=== PATIENT | female | born 1935 | race African-American/Black ===

== ENCOUNTER 2017-06-04 18:07 | Inpatient (IN) | payer MEDICARE ==
[2017-06-04 20:00] LABS: Troponin I 0.052 ng/mL (< 0.028)
[2017-06-04 21:47] VITALS: BMI 33.7
[2017-06-04 23:09] LABS: Troponin I 0.047 ng/mL (< 0.028)
[2017-06-05 02:30] LABS: Troponin I 0.034 ng/mL (< 0.028)
[2017-06-05] MEDS ORDERED: FLU VACC TS2017-18 (>65YR) 0.5 ML SYRINGE IM ONE (09:00)
[2017-06-05] MEDS ORDERED: Calcium Carbonate 500 MG ChewTAB PO PRN (10:29)
[2017-06-05] MEDS ORDERED: Acetaminophen 325 MG TAB PO PRN (10:29)
[2017-06-05] MEDS ORDERED: HYDROcodone/Acetaminophen 5/325 mg Tablet PO PRN (10:29)
[2017-06-05] MEDS ORDERED: Ondansetron HCl/PF 4 MG/2 ML Vial IVP PRN (10:29)
[2017-06-05] MEDS ORDERED: Nitroglycerin 0.4 MG TAB (25 Tab Bottle) SL PRN (10:29)
[2017-06-05] MEDS ORDERED: cefTRIAXone\\ROCEPHIN 1 GM in Sodium Chloride 0.9% 100 ML IVPB SCH (11:15)
[2017-06-05] MEDS ORDERED: Vancomycin HCl 1 GM in Premix Bag 1 BAG IVPB SCH (11:15)
--- NOTE | 2017-06-05 11:48 | HP ---
CHIEF COMPLAINT: Swelling of multiple joints and shortness of breath. HISTORY OF PRESENT ILLNESS: This is an 82-year-old pleasant lady who lives with her son. She came t o the [facility] because of shortness of breath. She has also been complaining of joint pains, especially the worsening joint swelling of the right wrist with some redness and also the left knee w ith some redness and has been limited in her activity because of that. She said that this has been h appening, the joint problem has started about a couple of weeks back, but the shortness of breath wor sened over the last 3 days. The patient denies any chest pain right now. No nausea, vomiting, no di arrhea or dysuria. She has been admitted for further evaluation and treatment of that. PAST MEDICAL HISTORY: History of gout, history of hypothyroidism, hypertension. PAST SURGICAL HISTORY: Significant for no surgical histories. PSYCHIATRIC: A poor historian. Denies any anxiety or depression. SOCIAL HISTORY: Denies alcohol, tobacco or drug use. ALLERGIES: No known drug allergies. MEDICATIONS: Amlodipine 5 mg p.o. daily and hydrochlorothiazide 12.5 p.o. daily. REVIEW OF SYSTEMS: Significant for joint pain, especially in the right wrist and the left knee, naeem es any fever, chills, headache, eye pain, hearing loss. No cough, some shortness of breath, no chest pain, no diarrhea, dysuria, or polyuria. No memory or mood changes. No neck pain. PHYSICAL EXAMINATION: VITAL SIGNS: Blood pressure is 164/72, afebrile, patient's pulse rate is 52, breathing 93% on room a ir, heart rate of 70. GENERAL: The patient is lying in bed in moderate distress because of the pain in joints. HEENT: Atraumatic, normocephalic. Pupils equally round, react to light. Extraocular movements inta ct. Mucous membranes moist. NECK: Supple. No JVD. CHEST: Breath sounds. There are no rales or rhonchi. LUNGS: Ritchie some bibasilar rales. CARDIOVASCULAR: Heart S1, S2 normal, bradycardia. ABDOMEN: Soft, obese. EXTREMITIES: The patient's right wrist is swollen and there is some redness over the right wrist whi ch is extremely tender, affects the range of motions as well. Left knee is tender and swollen, affec ts motion. There is some mild bilateral pedal edema. Distal pulses can be palpated without difficul ty, no cyanosis or clubbing. NEUROLOGIC: Alert, awake, oriented. No cranial deficits. No sensorimotor deficits. SKIN: As described above, the joints are red and tender. Otherwise is warm and dry in the rest bod y. PSYCHIATRIC: Normal mood. LABORATORY DATA: EKG shows bradycardia with rate of 56. Also shows complete left bundle branch bloc k and some wide QRS complex. WBC count is 8.4, hemoglobin is 12, glucose is 99. TSH is 23.11, potas sium is 4, creatinine is 1.04, CK 7, troponin is 0.034. BNP is 480. Chest x-rays shows normal shows some bibasilar congestion. ASSESSMENT AND PLAN: 1. New onset congestive heart failure. We will put the patient on IV diuretics, lisinopril and Core g. Cardiology consult and do the echocardiogram. We will maintain strict I's and O's and educate th e patient about congestive heart failure. 2. Right wrist swelling and tenderness in combination with the left knee, possible differential diag nosis could be septic versus inflammatory arthritis. We will consult Orthopedic, we will follow uric acid levels. We will symptomatically treat pain, will empirically treat with IV antibiotics. We wi ll do blood culture and x-rays. 3. Elevated TSH. The patient's home medications does not reflect any thyroid medications. We will start the patient on levofloxacin at a low dose. 4. Bradycardia with a widened QRS complex with elevated troponin in the face of new onset congestive heart failure. We will consult Cardiology and follow their recommendations. 5. Hypertension. We will continue p.r.n. medications and lisinopril. 6. Obesity with a BMI of 33.7. The patient will be counseled about it. 7. Sequential compression devices for deep venous thrombosis prophylaxis. I will work with consultants further caring for the patient.
[2017-06-05] MEDS: Vancomycin HCl 1 GM in Premix Bag 1 BAG IVPB SCH ×2 (12:00→14:00)
--- NOTE | 2017-06-05 12:15 | RAD ---
LEFT KNEE 3 VIEWS: Date: 06/05/17 HISTORY: Left knee pain. FINDINGS/IMPRESSION: Degenerative changes are present. No fracture, dislocation, or bony destruction is seen. There is sug gestion of a joint effusion. POS: JANET
[2017-06-05 12:25] LABS: Troponin I 0.042 ng/mL (< 0.028)
[2017-06-05 12:43] LABS: Thyroid Stimulating Hormone 39.1086 uIU/mL (0.35-4.94)
[2017-06-05 12:54] LABS: Anion Gap 12 mmol/L (10-20); BUN (Urea Nitrogen) 17 mg/dL (9.8-20.1); Calc. Creatinine Clearance 59 mL/min (70-130); Calcium 9.7 mg/dL (7.8-10.44); Carbon Dioxide 27 mmol/L (23-31); Chloride 103 mmol/L (98-107); Estimated GFR-MDRD 62; Glucose 132 mg/dL (83-110); Potassium 3.7 mmol/L (3.5-5.1); Sodium 138 mmol/L (136-145)
[2017-06-05 13:09] LABS: Free T4 (Free Thyroxine) Less than 0.40 ng/dL (0.70-1.48); T4 Less than 2.0 ug/dL (4.87-11.72)
--- NOTE | 2017-06-05 13:14 | RAD ---
RIGHT WRIST THREE VIEWS: HISTORY: Wrist pain and swelling. FINDINGS: There are severe arthritic changes of the first carpometacarpal joint and the triscaphe joint. The b ones are demineralized. There are no acute bone findings. IMPRESSION: Arthritic changes of the wrist. POS: JANET
[2017-06-05] MEDS: cefTRIAXone\\ROCEPHIN 1 GM, Syringe 0.4 ML in Sterile Water 9.6 ML SLOW IVP SCH (13:20)
[2017-06-05] MEDS: Furosemide 40 MG/4 ML VIAL SLOW IVP SCH (13:21)
[2017-06-05] MEDS: Vancomycin HCl 1.5 GM in Sodium Chloride 0.9% 250 ML 300 ML IVPB SCH (13:57)
--- NOTE | 2017-06-05 14:52 | CON ---
DATE OF CONSULTATION: 06/05/2017 CHIEF COMPLAINT: Right wrist pain and left knee pain. HISTORY OF PRESENT ILLNESS: Ms. Blum is an 82-year-old female who was admitted to the hospital for shortness of breath. Incidentally, she complained of right wrist and left knee pain. This has been sore over the last few weeks. She has an intermittent joint pain, especially with cold weather. She has a history of gout. She thinks that this feels similar to her pain in the past. She is actually improving with her wrist now. Her knee has been sore with ambulation. She has had no fevers or chi lls. PAST MEDICAL HISTORY: Gout, hypothyroidism, hypertension. PAST SURGICAL HISTORY: Negative. PSYCHIATRIC HISTORY: Negative. SOCIAL HISTORY: The patient denies alcohol, tobacco or drug use. ALLERGIES: No known drug allergies. MEDICATIONS: Amlodipine and hydrochlorothiazide. REVIEW OF SYSTEMS: Positive for right wrist and left knee pain, otherwise negative for 10 point revi ew of systems. RADIOLOGICAL STUDIES: X-rays of the right wrist review osteoarthritis especially of the base of the thumb. No significant joint effusion or other acute findings. The patient's left knee has advanced osteoarthritis of the medial compartment, no acute findings. PHYSICAL EXAMINATION: VITAL SIGNS: Temperature 98.8, respiratory 16, pulse 62, blood pressure 195/76. GENERAL: She is alert, sitting upright, talkative, no apparent distress. She is on nasal cannula ox ygen. HEENT: Normocephalic, atraumatic. ABDOMEN: Soft, nontender, nondistended. MUSCULOSKELETAL: The patient's right wrist has a small effusion. She has tenderness with range of m otion especially in extension. There is no erythema or warmth. She can make a full composite fist. The left knee has a positive large knee effusion with pain in flexion. She can flex to 45 degrees. Ligamentously, stable knee. Tender along the joint line. 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 PLAN: At this point, I think the patient's symptoms are consistent with her gout flare and arthritis . She does have an elevated uric acid and could be treated with appropriate medications for medical management of gout. She could be put on anti-inflammatory medication for pain relief. Wrist brace a s needed. No activity restriction. Orthopedics will sign off. She can follow up as needed in the [facility] as an outpatient.
[2017-06-05] MEDS: Levothyroxine Sodium 100 MCG TAB PO SCH (15:00)
--- NOTE | 2017-06-05 17:36 | CON ---
DATE OF CONSULTATION: 06/05/2017 HISTORY OF PRESENT ILLNESS: The patient is a pleasant 82-year-old woman who was admitted with weakness and was noted to have a very slow heart rate. The patient has no known cardiac history. She denies having any history of lightheadedness or syncope. The patient reports that she has felt progressively weak and has had difficulty with walking. The patient denied having any chest pain. She reports dyspnea on exertion. PAST MEDICAL HISTORY: 1. Hypothyroidism. 2. Gout. 3. Hypertension. PAST SURGICAL HISTORY: None. SOCIAL HISTORY: Nonsmoker. ALLERGIES: No known drug allergies. MEDICATIONS ON ADMISSION: Amlodipine 5 daily,and hydrochlorothiazide 12.5 daily. REVIEW OF SYSTEMS: Ten point system noticeable for weakness and dyspnea. No history of bright red blood per rectum, hematuria. PHYSICAL EXAMINATION: GENERAL: Obese woman in no acute distress with a blood pressure of 164/72, heart rate was 50. NECK: Showed no jugular venous distention. LUNGS: Clear to auscultation. HEART: Regular rate and rhythm, normal S1, S2. ABDOMEN: Distended. EXTREMITIES: Mild edema. SKIN: Warm and dry. NEUROLOGIC: Nonfocal. VASCULAR: Radial pulses are 2+. LABORATORY DATA: Sodium 138, potassium 3.7, chloride 103, bicarbonate 27, BUN 17, creatinine 1.03. Her TSH was 39, free T3 was less than 1. Her EKG revealed normal sinus rhythm with prolonged first degree AV block, left bundle branch block. IMPRESSION: 1. 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 2. Severe hypothyroidism. 3. Hypertension. 4. Obesity. This patient has severe hypothyroidism. She also has prolonged conduction disease. From a cardiac standpoint, she needs to have her thyroid replaced quickly. We will monitor to see if she continues to be in heart block as her thyroid level is corrected. We will also check the patient's echocardiogram and follow this patient with you throughout her hospitalization. BRETT
[2017-06-05] MEDS: Enoxaparin Sodium 40 MG/0.4 ML SYRINGE SC SCH (20:55)
[2017-06-05] MEDS ORDERED: Carvedilol 3.125 MG TAB PO SCH (21:00)
[2017-06-06 03:42] LABS: Bilirubin Negative (Negative); Blood, Urine Negative (Negative); Clarity CLOUDY (Clear); Glucose, Urine (Dipstick) Negative (Negative); Leukocyte Negative (Negative); Nitrite Negative (Negative); Protein, Urine (Dipstick) Negative (Neg-Trace); Specific Gravity, Urine 1.022 (1.002-1.036)
[2017-06-06 03:44] LABS: Bacteria/HPF None Seen HPF (None Seen); Hyaline Casts/LPF 0-3 HYALINE CAST LPF (0-3 Hyaline); Pathc Cast-AUWi Flag 0.81 (0-2.49); RBC/HPF 0-3 HPF (0-3)
[2017-06-06 05:01] LABS: #Eosinphils 0.2 thou/uL (0.0-0.7); #Lymphocytes 1.9 thou/uL (1.20-3.40); #Monocytes 0.7 thou/uL (0.11-0.59); #Neutrophils 4.5 thou/uL (1.40-6.50); %Basophils 0.4 % (0.0-1.0); %Eosinophils 2.1 % (0.0-10.0); %Lymphocytes 25.9 % (21.0-51.0); %Monocytes 9.7 % (0.0-10.0); Hemoglobin 12.3 g/dL (12.0-16.0); Mean Corpuscular Hemoglobin 33.6 pg (27.0-31.0); Mean Platelet Volume 8.8 fL (7.4-10.4); Platelet Count 168 thou/uL (130-400); RBC Distribution Width 14.3 % (11.5-14.5); Red Blood Cell (RBC) Count 3.65 mill/uL (4.20-5.40); White Blood Cell (WBC) Count 7.2 thou/uL (4.8-10.8)
[2017-06-06 05:21] LABS: ALT (SGPT) 31 U/L (8-55); AST (SGOT) 43 U/L (5-34); Albumin 3.4 g/dL (3.4-4.8); Alkaline Phosphatase 55 U/L (40-150); Anion Gap 13 mmol/L (10-20); BUN (Urea Nitrogen) 19 mg/dL (9.8-20.1); BUN/Creatinine Ratio 18.81; Bilirubin, Direct 0.2 mg/dL (0.1-0.3); Bilirubin, Total 0.4 mg/dL (0.2-1.2); Calc. Creatinine Clearance 60 mL/min (70-130); Calcium 8.9 mg/dL (7.8-10.44); Carbon Dioxide 28 mmol/L (23-31); Chloride 102 mmol/L (98-107); Estimated GFR-MDRD 63; Glucose 110 mg/dL (83-110); Phosphorus 3.2 mg/dL (2.3-4.7); Potassium 3.6 mmol/L (3.5-5.1); Protein, Total 6.8 g/dL (6.0-8.3); Sodium 139 mmol/L (136-145)
[2017-06-06] MEDS ORDERED: Levothyroxine Sodium 100 MCG TAB PO SCH (06:00)
[2017-06-06] MEDS ORDERED: Levothyroxine Sodium 25 MCG TAB PO SCH (06:00)
[2017-06-06] MEDS: Levothyroxine Sodium 100 MCG TAB PO SCH (06:28)
[2017-06-06] MEDS: Furosemide 40 MG/4 ML VIAL SLOW IVP SCH (06:28)
[2017-06-06] MEDS: Lisinopril 2.5 MG TAB PO SCH (08:59)
[2017-06-06] MEDS: Polyethylene Glycol 3350 17 GM Packet PO SCH (08:59)
--- NOTE | 2017-06-06 13:03 | PDOC.PN ---
- Subjective Encounter Start Date: 06/06/17 Encounter Start Time: 13:01 sob better no n/v no f/c c/o lt knee pain rt wrist better - Objective MAR Reviewed: Yes Vital Signs & Weight: Vital Signs (12 hours) Temp Pulse Resp BP BP Pulse Ox 06/06/17 11:30 98.7 F 58 L 18 153/69 H 94 L 06/06/17 08:59 59 L 145/64 H 06/06/17 07:40 98.6 F 59 L 18 145/64 H 97 06/06/17 07:25 98.6 F 59 L 18 97 06/06/17 04:00 97.9 F 50 L 13 100/64 96 Weight Admit Weight 202 lb 8 oz Weight 202 lb 6.4 oz I&O: 06/05/17 06/06/17 06/07/17 06:59 06:59 06:59 Intake Total 280 1160 Balance 280 1160 Result Diagrams: 06/06/17 04:45 06/06/17 04:45 Additional Labs: Accuchecks 06/06/17 06/05/17 06/05/17 06:01 20:35 16:35 POC Glucose 104 126 H 104 06/05/17 11:51 POC Glucose 120 H Phys Exam - Physical Examination Constitutional: NAD HEENT: PERRLA Neck: no JVD Respiratory: no wheezing biabasilar rales Cardiovascular: no significant murmur Gastrointestinal: non-tender Musculoskeletal: pulses present lt knee swelling Neurological: moves all 4 limbs Psychiatric: A&O x 3 Dx/Plan (1) CHF exacerbation Code(s): I50.9 - HEART FAILURE, UNSPECIFIED Status: Acute (2) Gout attack Code(s): M10.9 - GOUT, UNSPECIFIED Status: Acute (3) Osteoarthritis Code(s): M19.90 - UNSPECIFIED OSTEOARTHRITIS, UNSPECIFIED SITE Status: Acute (4) Obesity Code(s): E66.9 - OBESITY, UNSPECIFIED Status: Acute (5) Hypothyroid Code(s): E03.9 - HYPOTHYROIDISM, UNSPECIFIED Status: Acute (6) Mobitz II Code(s): I44.1 - ATRIOVENTRICULAR BLOCK, SECOND DEGREE Status: Acute (7) HTN (hypertension) Code(s): I10 - ESSENTIAL (PRIMARY) HYPERTENSION Status: Acute - Plan * monitor pulse * f/u card plan * ortho input appreciated * cont thyroid replacement
[2017-06-06] MEDS: cefTRIAXone\\ROCEPHIN 1 GM, Syringe 0.4 ML in Sterile Water 9.6 ML SLOW IVP SCH (13:12)
[2017-06-06] MEDS: Vancomycin HCl 1.5 GM in Sodium Chloride 0.9% 250 ML 300 ML IVPB SCH (13:12)
[2017-06-06] MEDS: Enoxaparin Sodium 40 MG/0.4 ML SYRINGE SC SCH (21:59)
[2017-06-07] MEDS: Levothyroxine Sodium 100 MCG TAB PO SCH (06:02)
[2017-06-07 06:25] LABS: Albumin 3.4 g/dL (3.4-4.8); Anion Gap 13 mmol/L (10-20); BUN (Urea Nitrogen) 22 mg/dL (9.8-20.1); BUN/Creatinine Ratio 19.64; Calc. Creatinine Clearance 54 mL/min (70-130); Calcium 8.9 mg/dL (7.8-10.44); Carbon Dioxide 28 mmol/L (23-31); Chloride 100 mmol/L (98-107); Estimated GFR-MDRD 56; Glucose 108 mg/dL (83-110); Phosphorus 3.8 mg/dL (2.3-4.7); Potassium 3.6 mmol/L (3.5-5.1); Sodium 137 mmol/L (136-145)
[2017-06-07] MEDS: Polyethylene Glycol 3350 17 GM Packet PO SCH (09:14)
[2017-06-07] MEDS: Lisinopril 2.5 MG TAB PO SCH (09:14)
[2017-06-07 12:34] LABS: Vancomycin, Trough 15.8 ug/mL
[2017-06-07] MEDS: Vancomycin HCl 1.5 GM in Sodium Chloride 0.9% 250 ML 300 ML IVPB SCH (13:59)
[2017-06-07] MEDS: cefTRIAXone\\ROCEPHIN 1 GM, Syringe 0.4 ML in Sterile Water 9.6 ML SLOW IVP SCH (13:59)
--- NOTE | 2017-06-07 16:29 | PDOC.PN ---
- Subjective Encounter Start Date: 06/07/17 Encounter Start Time: 16:28 Patient seen and examined. No new complaints. No overnight events - Objective MAR Reviewed: Yes Vital Signs & Weight: Vital Signs (12 hours) Temp Pulse Resp BP BP Pulse Ox 06/07/17 11:15 97.7 F 52 L 18 171/59 H 94 L 06/07/17 09:14 49 L 165/54 H 06/07/17 08:00 98.2 F 49 L 18 94 L 06/07/17 07:30 98.2 F 49 L 18 165/54 H 94 L Weight Admit Weight 202 lb 8 oz Weight 203 lb I&O: 06/06/17 06/07/17 06/08/17 06:59 06:59 06:59 Intake Total 1160 930 Balance 1160 930 Result Diagrams: 06/06/17 04:45 06/07/17 05:11 Additional Labs: Accuchecks 06/07/17 06/06/17 06/06/17 06:04 20:25 11:30 POC Glucose 107 131 H 124 H Phys Exam - Physical Examination Constitutional: NAD HEENT: PERRLA Neck: no JVD Respiratory: no wheezing Cardiovascular: no significant murmur Gastrointestinal: non-tender Musculoskeletal: pulses present Neurological: moves all 4 limbs Psychiatric: A&O x 3 Dx/Plan (1) CHF exacerbation Code(s): I50.9 - HEART FAILURE, UNSPECIFIED Status: Acute (2) Gout attack Code(s): M10.9 - GOUT, UNSPECIFIED Status: Acute (3) Osteoarthritis Code(s): M19.90 - UNSPECIFIED OSTEOARTHRITIS, UNSPECIFIED SITE Status: Acute (4) Obesity Code(s): E66.9 - OBESITY, UNSPECIFIED Status: Acute (5) Hypothyroid Code(s): E03.9 - HYPOTHYROIDISM, UNSPECIFIED Status: Acute (6) Mobitz II Code(s): I44.1 - ATRIOVENTRICULAR BLOCK, SECOND DEGREE Status: Acute (7) HTN (hypertension) Code(s): I10 - ESSENTIAL (PRIMARY) HYPERTENSION Status: Acute - Plan * pt/ot * f/u card plan
[2017-06-07] MEDS: Enoxaparin Sodium 40 MG/0.4 ML SYRINGE SC SCH (20:35)
[2017-06-08] MEDS: Levothyroxine Sodium 100 MCG TAB PO SCH (06:15)
[2017-06-08] MEDS: Polyethylene Glycol 3350 17 GM Packet PO SCH (08:31)
[2017-06-08] MEDS: Lisinopril 2.5 MG TAB PO SCH (08:33)
--- NOTE | 2017-06-08 13:24 | PDOC.PN ---
- Subjective Encounter Start Date: 06/08/17 Encounter Start Time: 13:24 Patient seen and examined. No new complaints. No overnight events - Objective MAR Reviewed: Yes Vital Signs & Weight: Vital Signs (12 hours) Temp Pulse Resp BP BP Pulse Ox 06/08/17 08:33 52 L 149/74 H 06/08/17 07:28 98.2 F 52 L 16 149/74 H 93 L 06/08/17 04:00 98.3 F 55 L 16 138/67 92 L Weight Admit Weight 202 lb 8 oz Weight 205 lb I&O: 06/07/17 06/08/17 06/09/17 06:59 06:59 06:59 Intake Total 930 770 Balance 930 770 Result Diagrams: 06/06/17 04:45 06/07/17 05:11 Phys Exam - Physical Examination Constitutional: NAD HEENT: moist MMs Neck: no JVD Respiratory: no rales Cardiovascular: no significant murmur Gastrointestinal: non-tender Musculoskeletal: pulses present Neurological: moves all 4 limbs Psychiatric: A&O x 3 Dx/Plan (1) CHF exacerbation Code(s): I50.9 - HEART FAILURE, UNSPECIFIED Status: Acute (2) Gout attack Code(s): M10.9 - GOUT, UNSPECIFIED Status: Acute (3) Osteoarthritis Code(s): M19.90 - UNSPECIFIED OSTEOARTHRITIS, UNSPECIFIED SITE Status: Acute (4) Obesity Code(s): E66.9 - OBESITY, UNSPECIFIED Status: Acute (5) Hypothyroid Code(s): E03.9 - HYPOTHYROIDISM, UNSPECIFIED Status: Acute (6) Mobitz II Code(s): I44.1 - ATRIOVENTRICULAR BLOCK, SECOND DEGREE Status: Acute (7) HTN (hypertension) Code(s): I10 - ESSENTIAL (PRIMARY) HYPERTENSION Status: Acute - Plan * doing better * pt/ot * f/u card plan
[2017-06-08] MEDS: cefTRIAXone\\ROCEPHIN 1 GM, Syringe 0.4 ML in Sterile Water 9.6 ML SLOW IVP SCH (13:29)
[2017-06-08] MEDS ORDERED: Acetaminophen 325 MG TAB PO PRN (15:10)
[2017-06-08] MEDS: hydrALAZINE 20 MG/ML VIAL SLOW IVP PRN (16:20)
[2017-06-08] MEDS: Docusate 100 MG CAP PO SCH (20:11)
[2017-06-08] MEDS: Enoxaparin Sodium 40 MG/0.4 ML SYRINGE SC SCH (20:11)
[2017-06-09] MEDS: Levothyroxine Sodium 100 MCG TAB PO SCH (05:48)
[2017-06-09 06:00] LABS: Albumin 3.3 g/dL (3.4-4.8); Anion Gap 13 mmol/L (10-20); BUN (Urea Nitrogen) 17 mg/dL (9.8-20.1); BUN/Creatinine Ratio 17.17; Calc. Creatinine Clearance 62 mL/min (70-130); Calcium 9.4 mg/dL (7.8-10.44); Carbon Dioxide 30 mmol/L (23-31); Chloride 98 mmol/L (98-107); Estimated GFR-MDRD 65; Glucose 100 mg/dL (83-110); Phosphorus 3.8 mg/dL (2.3-4.7); Potassium 3.6 mmol/L (3.5-5.1); Sodium 137 mmol/L (136-145)
--- NOTE | 2017-06-09 08:06 | PDOC.PN ---
- Subjective Encounter Start Date: 06/09/17 Encounter Start Time: 09:30 Subjective: Patient with improved pain in left knee. No SOB currently. Just back -: from ECHO. - Objective MAR Reviewed: Yes Vital Signs & Weight: Vital Signs (12 hours) Temp Pulse Resp BP Pulse Ox 06/09/17 04:00 98.7 F 53 L 20 159/72 H 94 L 06/08/17 23:00 99.1 F 56 L 20 141/67 H 93 L Weight Admit Weight 202 lb 8 oz Weight 214 lb 1.6 oz I&O: 06/08/17 06/09/17 06/10/17 06:59 06:59 06:59 Intake Total 770 794 Balance 770 794 Result Diagrams: 06/06/17 04:45 06/09/17 05:11 EKG Reviewed by me: Yes (Sinus Mc, 1st degree block (? cont 2nd degree?)) Phys Exam - Physical Examination Constitutional: NAD HEENT: moist MMs Respiratory: no wheezing, no rales, no rhonchi, clear to auscultation bilateral Cardiovascular: no significant murmur mild bradycardia Gastrointestinal: soft, positive bowel sounds left knee with effusion, not warm or red Neurological: non-focal, moves all 4 limbs Psychiatric: normal affect, A&O x 3 Dx/Plan (1) CHF exacerbation Code(s): I50.9 - HEART FAILURE, UNSPECIFIED Status: Acute (2) Hypothyroid Code(s): E03.9 - HYPOTHYROIDISM, UNSPECIFIED Status: Acute (3) Mobitz II Code(s): I44.1 - ATRIOVENTRICULAR BLOCK, SECOND DEGREE Status: Acute (4) Gout attack Code(s): M10.9 - GOUT, UNSPECIFIED Status: Acute (5) HTN (hypertension) Code(s): I10 - ESSENTIAL (PRIMARY) HYPERTENSION Status: Acute (6) Obesity Code(s): E66.9 - OBESITY, UNSPECIFIED Status: Acute (7) Osteoarthritis Code(s): M19.90 - UNSPECIFIED OSTEOARTHRITIS, UNSPECIFIED SITE Status: Acute - Plan cont current plan of care, PT/OT, DVT proph w/lovenox, DVT proph w/SCDs Rehab screening -: Cardiology plan -: Continued thyroid replacement * . - Discharge Day Encounter end time: 10:00
--- NOTE | 2017-06-09 09:02 | RAD ---
CHEST PA AND LATERAL: History: 82-year-old female with cough. Comparison: 06-04-17 FINDINGS: Monitor leads overlie the chest. Heart size is within normal limits. Atherosclerosis of the aorta. Mi ld stable increased linear and interstitial markings. IMPRESSION: Stable chest. No evidence of pneumonia or other acute process. POS: JANET
[2017-06-09] MEDS: Polyethylene Glycol 3350 17 GM Packet PO SCH (09:38)
[2017-06-09] MEDS: Lisinopril 2.5 MG TAB PO SCH (09:39)
[2017-06-09] MEDS: Docusate 100 MG CAP PO SCH ×2 (09:39→21:36)
[2017-06-09] MEDS: Furosemide 40 MG TAB PO SCH (09:39)
[2017-06-09] MEDS: cefTRIAXone\\ROCEPHIN 1 GM, Syringe 0.4 ML in Sterile Water 9.6 ML SLOW IVP SCH (13:07)
[2017-06-09 15:14] LABS: Anti-Striation AB Negative (Neg:<1:40); Antinuclear AB Negative (Negative); Antiparietal Cell Ab 7.8 Units (0.0-20.0); Complement C4 28 mg/dL (14-44); DSDNA AutoAb 5 IU/mL (0-9); SCL-70 IgG AutoAb <0.2 AI (0.0-0.9); Smith IgG AutoAb <0.2 AI (0.0-0.9); Smooth Muscle AB 12 Units (0-19); Thyroid Peroxidase Abs 12 IU/mL (0-34); U1 RNP/SNRNP IgG AutoAb 0.5 AI (0.0-0.9)
[2017-06-09] MEDS: hydrALAZINE 20 MG/ML VIAL SLOW IVP PRN (17:08)
[2017-06-09] MEDS: Enoxaparin Sodium 40 MG/0.4 ML SYRINGE SC SCH (21:35)
[2017-06-09] MEDS: Lisinopril 5 MG TAB PO SCH (21:36)
[2017-06-10] MEDS: Levothyroxine Sodium 100 MCG TAB PO SCH (05:36)
--- NOTE | 2017-06-10 07:31 | PDOC.PN ---
- Subjective Encounter Start Date: 06/10/17 Encounter Start Time: 07:45 Subjective: Some right ankle pain/soreness. Left knee improved. No CP/SOB. - Objective MAR Reviewed: Yes Vital Signs & Weight: Vital Signs (12 hours) Temp Pulse Resp BP BP Pulse Ox 06/10/17 07:22 99.1 F 57 L 20 182/88 H 94 L 06/10/17 04:00 97.9 F 91 17 134/63 94 L 06/10/17 00:00 97.9 F 62 18 130/60 94 L 06/09/17 21:36 81 149/63 H 06/09/17 19:45 97.9 F 62 18 06/09/17 19:40 97.9 F 62 20 149/63 H Weight Admit Weight 202 lb 8 oz Weight 207 lb 4.8 oz I&O: 06/09/17 06/10/17 06/11/17 06:59 06:59 06:59 Intake Total 794 Balance 794 Result Diagrams: 06/06/17 04:45 06/09/17 05:11 EKG Reviewed by me: Yes (Bradycardia with 1 degree AV block) Phys Exam - Physical Examination Constitutional: NAD HEENT: moist MMs Respiratory: no wheezing, no rales, no rhonchi Cardiovascular: RRR, no significant murmur Gastrointestinal: soft, positive bowel sounds left knee with effusion, no warmth or redness, right ankle exam normal Psychiatric: normal affect, A&O x 3 Dx/Plan (1) CHF exacerbation Code(s): I50.9 - HEART FAILURE, UNSPECIFIED Status: Acute (2) Hypothyroid Code(s): E03.9 - HYPOTHYROIDISM, UNSPECIFIED Status: Acute (3) Mobitz II Code(s): I44.1 - ATRIOVENTRICULAR BLOCK, SECOND DEGREE Status: Acute (4) Gout attack Code(s): M10.9 - GOUT, UNSPECIFIED Status: Acute (5) HTN (hypertension) Code(s): I10 - ESSENTIAL (PRIMARY) HYPERTENSION Status: Acute (6) Obesity Code(s): E66.9 - OBESITY, UNSPECIFIED Status: Acute (7) Osteoarthritis Code(s): M19.90 - UNSPECIFIED OSTEOARTHRITIS, UNSPECIFIED SITE Status: Acute - Plan cont current plan of care, PT/OT, DVT proph w/lovenox, DVT proph w/SCDs Arranging SNF bed in [place]. -: D/C when ok with cardiology. -: Will need repeat fT4 in 3 weeks to make sure not supratherapeutic, then TSH -: in 6 weeks once steady state achieved. * . - Discharge Day Encounter end time: 08:15
[2017-06-10] MEDS: Furosemide 40 MG TAB PO SCH (08:55)
[2017-06-10] MEDS: Docusate 100 MG CAP PO SCH (08:55)
[2017-06-10] MEDS: Lisinopril 5 MG TAB PO SCH (08:55)
[2017-06-10] MEDS: Polyethylene Glycol 3350 17 GM Packet PO SCH (09:00)
--- NOTE | 2017-06-10 12:34 | EKG ---
Test Reason : Blood Pressure : / mmHG Vent. Rate : 056 BPM Atrial Rate : 056 BPM P-R Int : 000 ms QRS Dur : 150 ms QT Int : 530 ms P-R-T Axes : 000 -18 180 degrees QTc Int : 511 ms Regular wide complex without defined P waves Left bundle branch block Abnormal ECG When compared with ECG of 04-JUN-2017 19:52, (Unconfirmed) Sinus rhythm has replaced Wide QRS rhythm Confirmed by DR. Ludy CABRERA ([id number]) on 06/10/2017 12:34:06 PM Referred By: ZAHRA Confirmed By:DR. Ludy CABRERA
--- NOTE | 2017-06-10 12:40 | EKG ---
Test Reason : Blood Pressure : / mmHG Vent. Rate : 057 BPM Atrial Rate : 500 BPM P-R Int : 000 ms QRS Dur : 162 ms QT Int : 506 ms P-R-T Axes : 000 -03 200 degrees QTc Int : 492 ms Probable nsr with first degree AV block Left bundle branch block Abnormal ECG When compared with ECG of 10-JUN-2017 06:50, (Unconfirmed) Atrial fibrillation has replaced Sinus rhythm Confirmed by DR. Ludy CABRERA ([id number]) on 06/10/2017 12:40:07 PM Referred By: MARCIANO Confirmed By:DR. Ludy CABRERA
[2017-06-10 19:29] VITALS: BP 165/64; TEMP 97.6
--- NOTE | 2017-06-11 04:07 | DIS ---
PRIMARY CARE PHYSICIAN: Dr. Catherine. DIAGNOSES ON ADMISSION: 1. New onset congestive heart failure. 2. Right wrist swelling and left knee swelling and pain. 3. Elevated TSH. 4. Bradycardia with a widened QRS. 5. Hypertension. 6. Obesity. DIAGNOSES ON DISCHARGE: 1. Acute new onset congestive heart failure, likely systolic. 2. Severe hypothyroidism. 3. Mobitz type 2 heart block, now resolved to a first-degree heart block. 4. Acute gout. 5. Hypertension. 6. Obesity. 7. Osteoarthritis. PROCEDURES: 1. X-ray of the left knee showing degenerative changes and a possible joint effusion. 2. X-ray of the right wrist showing arthritic changes. 3. Echocardiogram with suboptimal images secondary to patient's body habitus, that was unable to be certain of the ejection fraction though likely depressed. CONSULTATIONS: 1. Cardiology, Dr. Collins and Dr. Millan. 2. Orthopedics, Dr. Luna. PERTINENT LABORATORY DATA: TSH of 39. Free T4 less than 0.4. Free T3 less than 1. Uric acid eleva joe at 8. Brain natriuretic peptide elevated at 282. SUMMARY OF HOSPITAL COURSE: This is an 82-year-old -[place] female brought in to the [facility] Emergency Room due to shortness of breath, also complaining of joint pains with worsening joint swelling and pain in the right wrist and the left knee. The patient was noted to have an elevated b rain natriuretic peptide at 480 and sinus bradycardia with a complete left bundle branch block and so me widened QRS. She was transferred to [facility] and admitted. Dr. Collins was consult ed produce production team member for Dr. Millan.Dr. Collins diagnosed her with a second degree AV block with an intermit tent Mobitz type 2. The patient was recommended that she have a thyroid replacement. The patient wa s started on levothyroxine 100 mcg daily and she was watched on telemetry monitoring. She was also d iuresed with a resolution of her shortness of breath. She had an echocardiogram as above. The patie nt had x-rays also of the swollen painful joints and Dr. Luna was consulted and he diagnosed her with underlying osteoarthritis with an overlying gouty flare, recommend treatment with antiinflammat ories. Patient improved over the course of hospitalization with a markedly decreased pain. She cont inued to have significant bradycardia during the hospitalization; however was asymptomatic and eventu ally the patient was cleared by Dr. Millan for discharge and she is being discharged to a swing bed at [place]. DISCHARGE MANAGEMENT: Discharged to [place] for swing bed. Follow up with Dr. Catherine in 1 week . The patient will need a repeat free T4 in 3 weeks to make certain that she is not being overcorrec joe and a repeat TSH in 6 weeks once it is stabilized to see if she will need an increase or decrease dose of levothyroxine. ACTIVITIES: As tolerated. DIET: Healthy heart, low sodium diet. She will need physical and occupational therapy. DISCHARGE MEDICATIONS: 1. MiraLax 17 grams daily. 2. Nitroglycerin as needed for chest pain. 3. Lisinopril 5 mg twice a day. 4. Levothyroxine 100 mcg daily. 5. Henry as needed. 6. Lasix 40 mg daily. 7. Colace 100 mg twice a day. 8. Tums 1000 mg every 4 hours as needed. 9. Aspirin 81 mg daily. 10. Tylenol as needed.
--- NOTE | 2017-06-13 10:00 | EKG ---
Test Reason : Blood Pressure : / mmHG Vent. Rate : 056 BPM Atrial Rate : 055 BPM P-R Int : 000 ms QRS Dur : 150 ms QT Int : 508 ms P-R-T Axes : 000 -32 154 degrees QTc Int : 490 ms Wide QRS rhythm Left axis deviation Left bundle branch block Abnormal ECG Confirmed by MANUELA MEDRANO, ILSA Galvez ([id number]), photography editor MEGHANA TRIANA ([id number]) on 06/13/2017 10:00:12 AM Referred By: MD ROY Confirmed By:ILSA ROY MD
== END 2017-06-10 17:53 | disposition swing bed (61) | DRG 643 ==
LOC: ERS 18:07 → OBSVTOIN 19:49 → 2NO 19:49
PROVIDERS: ADMIT Internal Medicine Infectious Disease; ATTEND Internal Medicine Infectious Disease
DX: E03.9 Hypothyroidism, unspecified (principal); I50.21 Acute systolic (congestive) heart failure; I11.0 Hypertensive heart disease with heart failure; I44.7 Left bundle-branch block, unspecified; I44.1 Atrioventricular block, second degree; M10.9 Gout, unspecified; I10 Essential (primary) hypertension; E66.9 Obesity, unspecified; Z68.33 Body mass index [BMI] 33.0-33.9, adult; M19.031 Primary osteoarthritis, right wrist; I44.0 Atrioventricular block, first degree; M17.12 Unilateral primary osteoarthritis, left knee; M25.431 Effusion, right wrist; M25.462 Effusion, left knee
CPT/HCPCS: 36415; 36416; 71020; 80048; 80069; 80076; 80202; 81001; 83520; 83735; 83880; 84436; 84439; 84443; 84481; 84484; 84550; 85025; 85652; 86140; 86160; 86225; 86235; 86376; 86430; 86431; 93005; 93010; 93306; 93798; A4216; G8978-GP-CM; G8979-GP-CL; G8987-GO-CL; G8988-GO-CK; J0360; J0696; J1650; J1940; J3370; J7050

== ENCOUNTER 2019-04-26 15:39 | Inpatient (IN) | payer MEDICARE, MEDICAID ==
--- NOTE | 2019-04-26 16:52 | PDOC.FPRHP ---
- History of Present Illness Chief Complaint: SOB History of Present Illness: Hx difficult to obtain due to hx of dementia. AXOX2 This is an 84yo AA F who presented to the [facility] ER today with a CC of SOB. PMH significant for reported CHF, hypothyroidism, gout, GERD, htn. She states the SOB and difficulty walking brought her to the ER today. She endorses a cough that is productive. She states that she is needing breathing treatments. She is also complaining of difficulty walking. She uses a wheelchair to get around. Endorses fatigue and "no energy." Endorses normal BMs. Denies any blood in stool or urine. Endorses N/V. Denies dysuria. Patient states she has seen a stonework tracer but unable to recall which stonework tracer. Other hx obtained from ER records - patient arrived via EMS from [facility] for fluid overload. Patient is on a 1500 fluid restriction diet but NH has not been able to be compliant with this. Patient had BNP > 4000 and elevated trop at [facility]. Patient lives in a NH. PCP: Warren Paredes MD ED Course: Miguelina, 40 iv lasix - Allergies/Adverse Reactions Allergies Allergy/AdvReac Type Severity Reaction Status Date / Time No Known Drug Allergies Allergy Verified 04/26/19 20:45 - Home Medications Medication Instructions Recorded Confirmed Type Aspirin Chewable [Aspirin Chewable 81 mg PO DAILY tab 06/10/17 04/26/19 Rx Tablet] Docusate [Colace] 100 mg PO BID cap 06/10/17 04/26/19 Rx Levothyroxine Sodium [Synthroid] 100 mcg PO 0600 tab 06/10/17 04/26/19 Rx Allopurinol [Zyloprim] 100 mg PO BID tablet 07/10/17 04/26/19 Rx Ipratropium/Albuterol Sulfate 3 ml NEB BID neb 07/10/17 04/26/19 Rx [DuoNeb] Ipratropium/Albuterol Sulfate 3 ml NEB [id number] PRN neb 07/10/17 04/26/19 Rx [DuoNeb] predniSONE 20 mg PO QAM-WM tab 07/10/17 04/26/19 Rx Acetaminophen [Tylenol Regular 650 mg PO Q6HR PRN MDD 3000MG/24HR 04/26/1904/26 History Strength] Furosemide 1 tab PO BID 04/26/19 04/26/19 History Omeprazole 1 tab PO DAILY 04/26/19 04/26/19 History Ondansetron [Zofran ODT] 1 tab PO Q6HR PRN 04/26/19 04/26/19 History Polyethylene Glycol 3350 [Miralax] 1 pack PO DAILY 04/26/19 04/26/19 History Potassium Chloride 1 tab PO BID 04/26/19 04/26/19 History - History PMHx: dementia, CHF, GERD, Gout, hypothyroidism, HTN PSHx: none FHx: non contributory Social: denies alcohol, drug or tobacco use. Lives in a NH. Rosa Gu ( niece) is MPOA per patient. - Review of Systems General: reports: fever/chills, fatigue. denies: weight/appetite/sleep changes , night sweats Eyes: denies: vision changes ENT: denies: nasal congestion Respiratory: reports: cough, shortness of breath, exercise intolerance. denies : congestion Cardiovascular: reports: edema. denies: chest pain, palpitation, paroxysmal nocturnal dyspnea, orthopnea Gastrointestinal: reports: nausea, vomiting. denies: diarrhea, constipation, abdominal pain Genitourinary: denies: dysuria Skin: denies: rashes, lesions Musculoskeletal: reports: swelling. denies: pain, tenderness, stiffness - Vital signs Pulse: 82, Resp: 28, O2 sat: 98 on 2l nc, Time: 04/26/2019 16:25 Weight 99kg - Physical Exam Constitutional: NAD HEENT: normocephalic and atraumatic, PERRLA, EOMI, MMM -HEENT: hard of hearing Neck: supple, FROM, no JVD Chest: no-tender to palpation, no lesions Heart: RRR, normal S1/S2, no murmurs/rubs/gallops, pulses present -Heart: 1+ edema b/l to level of the knees, 2+ edema in feet b/l Lungs: no respiratory distress, good air movement, no retractions -Lungs: exp wheeze, diffuse crackles Abdomen: soft, non-tender, bowel sounds present, no masses/distention Musculoskeletal: normal structure, normal tone, ROM grossly normal Neurological: no focal deficit -Neurological: strength 1/5 in b/l LE, sensation intact b/l Skin: no rash/lesions, good turgor, capillary refill <2 seconds Heme/Lymphatic: no unusual bruising or bleeding, no purpura, no petechia Psychiatric: normal mood and affect -Psychiatric: poor insight and judgment into medical condition patient knows name, , month; unable to state location, president or place FMR H&P: Results - EKG Interpretation EKG: EKG showing 1st degree AV block, LBBB, QTc 533ms, though p waves difficult to discern; will repeat ekg after diuresis - Radiology Interpretation Chest x-ray Status: report reviewed by me Additional comment: cardiomegaly, suboptimal evaluation of LL base FMR H&P: A/P - Problem List (1) CHF exacerbation Current Visit: No Status: Acute Code(s): I50.9 - HEART FAILURE, UNSPECIFIED (2) HTN (hypertension) Current Visit: No Status: Acute Code(s): I10 - ESSENTIAL (PRIMARY) HYPERTENSION (3) Hypothyroid Current Visit: No Status: Acute Code(s): E03.9 - HYPOTHYROIDISM, UNSPECIFIED (4) Obesity Current Visit: No Status: Acute Code(s): E66.9 - OBESITY, UNSPECIFIED (5) Osteoarthritis Current Visit: No Status: Acute Code(s): M19.90 - UNSPECIFIED OSTEOARTHRITIS , UNSPECIFIED SITE (6) Hx of gout Current Visit: Yes Status: Chronic Code(s): Z87.39 - PERSONAL HISTORY OF DISEASES OF THE MS SYS AND CONN TISS - Plan This is an 84yo AA F presenting today with a CHF exacerbation. #CHF exacerbation -BNP >4000, will follow -CXR: cardiomegaly, suboptimal evaluation left lung base - Received 40IV lasix in [facility] ED, will continue - Strict I&O - echo ordered, will follow; last echo 2017 unable to obtain EF due to body habitus - fluid restriction #Elevated trop -patient denying cp at this time - likely due to CHF exacerbation - initial 0.0195>0.124 - Will continue to trend #UTI -UA: trace LE, 1+ bacteria; per cc from [facility] ED "pus in urine" -patient denies dysuria at this time -urine culture, will follow -rocephin #OA -not complaining of any recent falls or acute pain at this time -continue home meds #GERD -continue home meds #Gout -continue home meds #Hypothyroid -continue home meds #HTN -continue home meds Code: Though A&O x2, patient reports she would like to be full code; Patient's Osiel Sheikh [phone], home [phone], could not be reached this evening. Left message with telemetry phone number to call back. Will try to call again. VTE ppx: lovenox Gi ppx: protonix Dispo: admit to tele obs for fluid diruesis, echo, LOS <48hrs Case discussed with Dr. Caballero FMR H&P: Upper Level - Pertinent history see project internship note - Pertinent findings PE: General: resting, NAD, elderly F, obese, AXOX2 Cardio: RRR, no murmur, rub or gallop Resp: exp wheeze, crackles heard at b/l lung bases Abd: soft, nontender, nondistended MSK: LE very weak 1/5 strength, sensation intact Psych: poor insight and judgement into condition - Plan Date/Time: 04/26/191649 I, Katerine Parra MD, have evaluated this patient and agree with findings/plan as outlined by project internship resident. Pertinent changes/additions are listed here. I was present at the bedside in the ER during the initial evaluation. I helped scribe as above. I agree with the HPI and plan as listed above. Summary: this is an 84yo AA F who presented with CHF exacerbation from [facility]. CXR showing cardiomegaly. Crackles and wheezes heard on PE, significant LE edema. Patient will be diuresed with lasix. Will be given duonebs. UA showing leuks and bacteria - will treat with rocephin. Ucx pending. Will trend troponins - likely elevated due to demand ischemia. Addendum - Attending - Attending Attestation Date/Time: 04/26/192129 I personally evaluated the patient and discussed the management with Dr. Blum/ Fidel I agree with the History, Examination, Assessment and Plan documented above with any addition or exceptions noted below. 84 yo AAF PMH CHF. presents as admit from ER with CC CASTANEDA, SOB, and "pus in urine." She lives at [facility] in [place]. Reported worsening lower extremity swelling. Patient not compliant with fluid restriction. In ER patient, required oxygen. receive lasix, ASA, and duoneb with patient states improved her symptoms. on exam, patient A&O to person only. 2+ edema on legs bilaterally. Crackles in lung base. Labs remarkable for elevated BNP >4000, indeterminent trops that have now down trended. EKG shows prologed HI interval but otherwise unremarkable. CXR concerning for fluid overload. admit for CHF exacerbation. continue IV lasix, strict I&O, fluid restrict, PRN nebs, TTE tomorrow. Patient currently full code by default. Have made multiple attempts to contact [facility] and left VM asking to call to tele floor. Obs, tele, <2 midnights.
[2019-04-26] MEDS ORDERED: Acetaminophen 650 MG Suppository PR PRN (17:07)
[2019-04-26 17:14] LABS: CKMB 1.6 ng/mL (0-6.6)
[2019-04-26] MEDS ORDERED: Furosemide 40 MG/4 ML VIAL SLOW IVP SCH (17:15)
[2019-04-26] MEDS ORDERED: Aspirin Chewable 81 MG TAB ONE (18:21)
[2019-04-26 20:04] LABS: Troponin I 0.111 ng/mL (< 0.028)
[2019-04-26] MEDS ORDERED: Sodium Chloride 0.9% 10 ML ONE (22:28)
[2019-04-26] MEDS: Allopurinol 100 MG TAB PO SCH (22:34)
[2019-04-26] MEDS: Docusate 100 MG CAP PO SCH (22:34)
[2019-04-26] MEDS: cefTRIAXone\\ROCEPHIN 1 GM in Sodium Chloride 0.9% 100 ML IVPB SCH (22:34)
[2019-04-26 23:09] LABS: Troponin I 0.098 ng/mL (< 0.028)
[2019-04-27] MEDS: Levothyroxine Sodium 100 MCG TAB PO SCH (05:51)
[2019-04-27] MEDS: Acetaminophen 325 MG TAB PO PRN (05:55)
[2019-04-27] MEDS ORDERED: Furosemide 20 MG/2 ML VIAL SLOW IVP SCH (06:00)
[2019-04-27 06:44] LABS: #Eosinphils 0.2 thou/uL (0.0-0.7); #Lymphocytes 1.5 thou/uL (1.20-3.40); #Monocytes 0.6 thou/uL (0.11-0.59); %Basophils 0.5 % (0.0-1.0); %Eosinophils 2.5 % (0.0-10.0); %Lymphocytes 20.6 % (21.0-51.0); %Monocytes 8.6 % (0.0-10.0); %Neutrophils 67.7 % (42.0-75.0); Hemoglobin 13.3 g/dL (12.0-16.0); Mean Corpuscular HGB CONC 32.7 g/dL (32.0-36.0); Mean Corpuscular Hemoglobin 33.4 pg (27.0-31.0); Platelet Count 170 thou/uL (130-400); Red Blood Cell (RBC) Count 3.98 mill/uL (4.20-5.40); White Blood Cell (WBC) Count 7.4 thou/uL (4.8-10.8)
[2019-04-27 07:17] LABS: ALT (SGPT) 24 U/L (8-55); AST (SGOT) 35 U/L (5-34); Albumin 3.2 g/dL (3.4-4.8); Alkaline Phosphatase 73 U/L (40-110); Anion Gap 14 mmol/L (10-20); BUN (Urea Nitrogen) 11 mg/dL (9.8-20.1); Bilirubin, Total 0.4 mg/dL (0.2-1.2); Calc. Creatinine Clearance 82 mL/min (70-130); Calcium 9.3 mg/dL (7.8-10.44); Carbon Dioxide 28 mmol/L (23-31); Chloride 101 mmol/L (98-107); Estimated GFR-MDRD 89; Globulin 3.5 g/dL (2.4-3.5); Glucose 114 mg/dL (83-110); Potassium 4.3 mmol/L (3.5-5.1); Protein, Total 6.7 g/dL (6.0-8.3); Sodium 139 mmol/L (136-145)
--- NOTE | 2019-04-27 08:47 | PDOC.FM ---
- Subjective Subjective: Mrs. Blum was resting comfortably in bed and finishing her breakfast at the time of evaluation. She denied any acute overnight events. - Objective Vital Signs & Weight: Vital Signs (12 hours) Temp Pulse Resp BP BP Pulse Ox 04/27/19 08:03 97.5 F L 67 19 143/71 H 100 04/27/19 07:53 97.8 F 67 20 143/71 H 100 04/27/19 03:00 96.7 F L 59 L 16 137/64 100 04/26/19 23:00 97.3 F L 58 L 20 124/58 L 96 Weight Weight 96.932 kg I&O: 04/26/19 04/27/19 04/28/19 06:59 06:59 06:59 Intake Total 320 Output Total 100 Balance 220 Result Diagrams: 04/27/19 06:30 04/27/19 06:30 Phys Exam - Physical Examination Constitutional: NAD HEENT: PERRLA, moist MMs, sclera anicteric, oral pharynx no lesions Neck: no JVD, supple, full ROM Respiratory: no wheezing, no rales, no rhonchi, clear to auscultation bilateral Cardiovascular: RRR, no significant murmur, no rub +2 pulses at Radial Arteries Gastrointestinal: soft, no distention Musculoskeletal: pulses present +2 edema to knees Neurological: non-focal, moves all 4 limbs Psychiatric: normal affect Deviation from normal: A&Ox2 (Person, Time) Skin: no rash Dx/Plan - Plan Plan: 84 y/o female w/ CHF exacerbation, complicated by UTI. #CHF Exacerbation -HPI significant for SOB and signs of fluid overload in setting of known cardiac dysfunction -BNP: 3483 -CXR: Cardiomegaly, sub-optimal evaluation lower left lung -s/p Lasix 40 mg IV in [place] [facility], currently on Lasix 20 mg IV BID -Strict I&Os -Echo: Pending -Fluid Restriction: 1500 ml #Elevated Troponins -Patient denied Chest Pain at admission -Likely 2/2 to CHF Exacerbation -Troponins: 0.124, 0.111, 0.098 -Will continue to evaluate clinically #UTI -UA: Trace LE, 1+ Bacteria; [place] ED reported "pus in urine" -Patient denied dysuria at admission -UCx: Pending -Ceftriaxone 1 gm IV Q24H #OA -No history of recent falls or complaints of pain -Continue home medication regimen #GERD -Continue home medication regimen #Gout -Continue home medication regimen #Hypothyroid -Continue home medication regimen #HTN -BP: 143/71 on 04/27 - currently at goal -Continue home medication regimen Code: Patient desired Full Code at Admission despite being A&Ox2 - Will reengage w/ Patient's MPOA (Rosa Sheikh - /Home: ) Diet: Heart Healthy, Low Sodium - Fluid Restriction per above DVT PPx: Lovenox 40 mg SC Activity: Ambulate w/ Assist Dispo: Patient is currently on Telemetry Floor for observation. Awaiting Echo results and continue fluid diuresis and treatment of UTI, await culture results. Continue to monitor clinically and evaluate for resolution of CHF exacerbation. Expected LOS < 48H Addendum - Attending - Attending Attestation Date/Time: 04/27/19 1394 I personally evaluated the patient and discussed the management with Dr. Palafox. I agree with the History, Examination, Assessment and Plan documented above with any addition or exceptions noted below. Pt with 2+ edema in bilateral lower extremities. Adjusting IV lasix. Strict I/ O. Update family.
[2019-04-27] MEDS: Enoxaparin Sodium 40 MG/0.4 ML SYRINGE SC SCH (09:44)
[2019-04-27] MEDS: predniSONE 20 MG TAB PO SCH (09:45)
[2019-04-27] MEDS: Docusate 100 MG CAP PO SCH ×2 (09:45→22:45)
[2019-04-27] MEDS: Potassium Chloride 10 MEQ TAB PO SCH ×2 (09:45→22:45)
[2019-04-27] MEDS: Aspirin 325 MG TAB PO SCH (09:45)
[2019-04-27] MEDS: Allopurinol 100 MG TAB PO SCH ×2 (09:46→22:45)
[2019-04-27] MEDS: Polyethylene Glycol 3350 17 GM Packet PO SCH (09:47)
[2019-04-27] MEDS: Furosemide 40 MG/4 ML VIAL SLOW IVP SCH (13:38)
[2019-04-27] MEDS: Ondansetron ODT 4 MG TAB PO PRN (17:59)
[2019-04-27] MEDS: cefTRIAXone\\ROCEPHIN 1 GM in Sodium Chloride 0.9% 100 ML IVPB SCH (18:50)
--- NOTE | 2019-04-28 05:33 | PDOC.FM ---
- Subjective Subjective: Mrs. Blum was resting comfortably in her hospital bed at the time of evaluation. She denied any acute overnight events, but stated that she had continued shortness of breath. Per nursing and Telemetry Floor staff, she had no acute overnight events. After repositioning reevaluation, Mrs. Blum felt that she was able to breath much better, and no longer endorsed shortness of breath. - Objective Vital Signs & Weight: Vital Signs (12 hours) Temp Pulse Resp BP Pulse Ox 04/28/19 03:16 97.4 F L 78 16 135/87 97 04/28/19 00:00 71 147/86 H 04/27/19 19:44 98.3 F 78 20 167/82 H 93 L Weight Weight 96.932 kg I&O: 04/26/19 04/27/19 04/28/19 06:59 06:59 06:59 Intake Total 320 850 Output Total 100 950 Balance 220 -100 Result Diagrams: 04/27/19 06:30 04/28/19 08:07 Phys Exam - Physical Examination Constitutional: NAD HEENT: PERRLA, moist MMs, sclera anicteric, oral pharynx no lesions Neck: supple, full ROM Respiratory: no rhonchi, clear to auscultation bilateral Mild wheezing and inspiratory crackles hear in the bibasilar tripathi Cardiovascular: RRR, no significant murmur, no rub Gastrointestinal: soft, non-tender, no distention, positive bowel sounds Musculoskeletal: pulses present +2 pitting edema to the knee, bilaterally Neurological: non-focal Skin: no rash Dx/Plan - Plan Plan: 84 y/o female w/ CHF exacerbation, complicated by UTI. # CHF Exacerbation -HPI significant for SOB and signs of fluid overload in setting of known cardiac dysfunction -BNP: 3483 -CXR: Cardiomegaly, sub-optimal evaluation lower left lung -s/p Lasix 40 mg IV in [place] ED, currently on Lasix 20 mg IV BID -Strict I&Os -Echo: Pending -Lasix 40 mg IV BID -Urine Output: ~950 ml - possibly inaccurate due to collection method (PureWick) -Fluid Restriction: 1500 ml # Elevated Troponins -Patient denied Chest Pain at admission -Likely 2/2 to CHF Exacerbation -Troponins: 0.124, 0.111, 0.098 -Will continue to evaluate clinically # UTI -UA: Trace LE, 1+ Bacteria; [place] ED reported "pus in urine" -Patient denied dysuria at admission -UCx: Pending -Ceftriaxone 1 gm IV Q24H # OA -No history of recent falls or complaints of pain -Continue home medication regimen # GERD -Continue home medication regimen # Gout -Continue home medication regimen # Hypothyroid -Continue home medication regimen # HTN -BP: 135/87 on 04/28 - currently at goal -Continue home medication regimen Code: Patient desired Full Code at Admission despite being A&Ox2 - Will reengage w/ Patient's MPOA (Rosa Sheikh - /Home: ) Diet: Heart Healthy, Low Sodium - Fluid Restriction per above DVT PPx: Lovenox 40 mg SC Activity: Ambulate w/ Assist Dispo: Patient is currently stable on Telemetry Floor for observation. Awaiting Echo results and continue fluid diuresis and treatment of UTI, await culture results. Continue to monitor clinically and evaluate for resolution of CHF exacerbation. Expected LOS < 48H Addendum - Attending - Attending Attestation Date/Time: 04/28/19 1307 I personally evaluated the patient and discussed the management with Dr. Palafox. I agree with the History, Examination, Assessment and Plan documented above with any addition or exceptions noted below. Continue IV lasix, adding metolazone. Monitor I/O's.
[2019-04-28] MEDS: Levothyroxine Sodium 100 MCG TAB PO SCH (06:19)
[2019-04-28] MEDS: Furosemide 40 MG/4 ML VIAL SLOW IVP SCH ×2 (06:19→14:46)
[2019-04-28] MEDS ORDERED: Metolazone 5 MG TAB PO SCH (08:30)
[2019-04-28] MEDS: predniSONE 20 MG TAB PO SCH (09:01)
[2019-04-28] MEDS: Aspirin 325 MG TAB PO SCH (09:01)
[2019-04-28] MEDS: Polyethylene Glycol 3350 17 GM Packet PO SCH (09:01)
[2019-04-28] MEDS: Docusate 100 MG CAP PO SCH ×2 (09:01→20:39)
[2019-04-28] MEDS: Allopurinol 100 MG TAB PO SCH ×2 (09:01→20:39)
[2019-04-28] MEDS: Enoxaparin Sodium 40 MG/0.4 ML SYRINGE SC SCH (09:02)
[2019-04-28] MEDS: Potassium Chloride 10 MEQ TAB PO SCH ×2 (09:02→20:39)
[2019-04-28 09:10] LABS: ALT (SGPT) 18 U/L (8-55); AST (SGOT) 16 U/L (5-34); Albumin 3.5 g/dL (3.4-4.8); Alkaline Phosphatase 72 U/L (40-110); Anion Gap 15 mmol/L (10-20); BUN (Urea Nitrogen) 12 mg/dL (9.8-20.1); Bilirubin, Total 0.4 mg/dL (0.2-1.2); Calc. Creatinine Clearance 85 mL/min (70-130); Calcium 9.3 mg/dL (7.8-10.44); Carbon Dioxide 31 mmol/L (23-31); Chloride 98 mmol/L (98-107); Estimated GFR-MDRD Greater than 90; Globulin 2.8 g/dL (2.4-3.5); Glucose 116 mg/dL (83-110); Potassium 3.7 mmol/L (3.5-5.1); Protein, Total 6.3 g/dL (6.0-8.3); Sodium 140 mmol/L (136-145)
[2019-04-28] MEDS: cefTRIAXone\\ROCEPHIN 1 GM in Sodium Chloride 0.9% 100 ML IVPB SCH (17:34)
[2019-04-28] MEDS: Metolazone 5 MG TAB PO SCH (20:39)
[2019-04-29] MEDS: Acetaminophen 325 MG TAB PO PRN ×2 (02:28→21:23)
[2019-04-29 05:40] LABS: ALT (SGPT) 21 U/L (8-55); AST (SGOT) 24 U/L (5-34); Albumin 3.6 g/dL (3.4-4.8); Alkaline Phosphatase 80 U/L (40-110); Anion Gap 14 mmol/L (10-20); BUN (Urea Nitrogen) 16 mg/dL (9.8-20.1); Bilirubin, Total 0.4 mg/dL (0.2-1.2); Calc. Creatinine Clearance 75 mL/min (70-130); Calcium 9.6 mg/dL (7.8-10.44); Carbon Dioxide 32 mmol/L (23-31); Chloride 95 mmol/L (98-107); Estimated GFR-MDRD 79; Globulin 3.4 g/dL (2.4-3.5); Glucose 111 mg/dL (83-110); Sodium 137 mmol/L (136-145)
[2019-04-29] MEDS: Furosemide 40 MG/4 ML VIAL SLOW IVP SCH ×2 (06:09→14:44)
[2019-04-29] MEDS: Levothyroxine Sodium 100 MCG TAB PO SCH (06:09)
--- NOTE | 2019-04-29 08:32 | PDOC.FM ---
- Subjective Subjective: Mrs. Blum was resting comfortably in her hospital bed at the time of evaluation. She denied any acute overnight events such as chest pain or worsening shortness of breath, and actually stated that she felt that her breathing had improved. - Objective Vital Signs & Weight: Vital Signs (12 hours) Temp Pulse Resp BP Pulse Ox 04/29/19 04:00 97.2 F L 67 23 H 167/77 H 97 04/29/19 01:48 96 Weight Weight 98 kg I&O: 04/28/19 04/29/19 04/30/19 06:59 06:59 06:59 Intake Total 1330 1320 Output Total 1150 1850 Balance 180 -530 Result Diagrams: 04/27/19 06:30 04/29/19 04:44 Phys Exam - Physical Examination Constitutional: NAD HEENT: PERRLA, moist MMs, sclera anicteric, oral pharynx no lesions Neck: supple, full ROM Respiratory: no wheezing, no rales, no rhonchi, clear to auscultation bilateral Breath sounds greatly improved, minimal wheezing / rales Cardiovascular: RRR, no significant murmur, no rub Gastrointestinal: soft, non-tender, no distention, positive bowel sounds Musculoskeletal: pulses present +2 pitting edema bilaterally to the knees, possibly resolving Neurological: non-focal, moves all 4 limbs Psychiatric: normal affect Skin: no rash Dx/Plan - Plan Plan: 84 y/o female w/ CHF exacerbation, complicated by UTI. # CHF Exacerbation -HPI significant for SOB and signs of fluid overload in setting of known cardiac dysfunction -BNP: 3483 -CXR: Cardiomegaly, sub-optimal evaluation lower left lung -s/p Lasix 40 mg IV in [place] ED, currently on Lasix 20 mg IV BID -Strict I&Os -Echo: Pending -Lasix 40 mg IV BID -Urine Output: ~1850 ml - output increasing but daily weights may be inaccurate -Fluid Restriction: 1500 ml # Elevated Troponins -Patient denied Chest Pain at admission -Likely 2/2 to CHF Exacerbation -Troponins: 0.124, 0.111, 0.098 -Will continue to evaluate clinically # UTI -UA: Trace LE, 1+ Bacteria; [place] ED reported "pus in urine" -Patient denied dysuria at admission -UCx: Vancomycin Resistant Enterococcus -Ceftriaxone 1 gm IV Q24H -Confirm coverage with Pharmacy # OA -No history of recent falls or complaints of pain -Continue home medication regimen # GERD -Continue home medication regimen # Gout -Continue home medication regimen # Hypothyroid -Continue home medication regimen # HTN -BP: 167/77 on 04/29 -Continue home medication regimen - consider adjunct therapies if needed Code: Patient desired Full Code at Admission despite being A&Ox2 - Will reengage w/ Patient's MPOA (Rosa Sheikh - /Home: ) Diet: Heart Healthy, Low Sodium - Fluid Restriction per above DVT PPx: Lovenox 40 mg SC Activity: Ambulate w/ Assist Dispo: Patient is currently stable on Telemetry Floor for observation. Awaiting Echo results - will continue fluid diuresis and treatment of UTI, await culture results. Continue to monitor clinically and evaluate for resolution of CHF exacerbation. Expected LOS < 48H Addendum - Attending - Attending Attestation Date/Time: 04/29/19 1110 I personally evaluated the patient and discussed the management with Dr. Palafox. I agree with the History, Examination, Assessment and Plan documented above with any addition or exceptions noted below. Pt is still volume overloaded but I/O is down 200 ml overnight. Will increase lasix, continue metolazone. Urine cx growing vre, initiating antibiotics.
[2019-04-29] MEDS ORDERED: Furosemide 40 MG/4 ML VIAL SLOW IVP SCH (09:00)
[2019-04-29] MEDS: Potassium Chloride 10 MEQ TAB PO SCH ×2 (09:22→21:23)
[2019-04-29] MEDS: Docusate 100 MG CAP PO SCH ×2 (09:22→21:23)
[2019-04-29] MEDS: predniSONE 20 MG TAB PO SCH (09:22)
[2019-04-29] MEDS: Enoxaparin Sodium 40 MG/0.4 ML SYRINGE SC SCH (09:22)
[2019-04-29] MEDS: Aspirin 325 MG TAB PO SCH (09:22)
[2019-04-29] MEDS: Metolazone 5 MG TAB PO SCH ×2 (09:22→21:22)
[2019-04-29] MEDS: Allopurinol 100 MG TAB PO SCH ×2 (09:22→21:22)
[2019-04-29] MEDS: Polyethylene Glycol 3350 17 GM Packet PO SCH (09:23)
--- NOTE | 2019-04-29 13:05 | PQF ---
SYDNEY HAQUECLAUDIA [id number] CLINICAL DOCUMENTATION IMPROVEMENT CLARIFICATION FORM: ICD-10 Updated PLEASE DO AN ADDENDUM TO THE PROGRESS NOTE WITH ANY DOCUMENTATION UPDATES OR ADDITIONS AND CARRY THROUGH TO DC SUMMARY. THANK YOU. DATE: ATTN: DR. Azeem MOBLEY Please exercise your independent, professional judgment in responding to the clarification form. Clinical indicators are provided on the bottom of this form for your review. Please check appropriate box(s): CONGESTIVE HEART FAILURE: A. ACUITY [ ] Acute [ X ] Acute on Chronic B. TYPE [ X ] Systolic / HFrEF [ ] Diastolic / HFpEF [ ] Combined Systolic / Diastolic [ ] Other diagnosis [ ] Unable to determine In addition, please specify: Present on Admission (POA): [ X ] Yes [ ] No [ ] Unable to determine For continuity of documentation, please document condition throughout progress notes and discharge summary. Thank You. CLINICAL INDICATORS - SIGNS / SYMPTOMS / LABS / RESULTS AND LOCATION IN EMR 04/26 BNP ON ARRIVAL TO ED > 4000 04/27 BNP 3483.6 04/26 H&P (SHABNAM) A/P: 1). ACUTE CHF EXACERBATION 04/27 - 04/29 PN ([facility]) DX/PLAN: CHF EXACERBATION-HPI SIGNIFICANT FOR SOB AND SIGNS OF FLUID OVERLOAD IN SETTING OF KNOWN CARDIAC DYSFUNCTION. RISK: HX CHF, ADVANCED AGE (84), HTN (H&P/ [facility]NAM) 04/26 TREATMENTS: SUPPLEMENTAL OXYGEN (04/26-PRESENT) LASIX IVP (04/26 -PRESENT) THANK YOU! JACK BOYD (This form is maintained as a part of the permanent medical record) 2014 [employer] All Rights Reserved [email or web address] [phone] MTDD
[2019-04-29] MEDS: AMOXicillin 250 MG CAP PO SCH ×2 (14:47→21:22)
[2019-04-29] MEDS ORDERED: AMOXicillin 250 MG CAP PO SCH (21:00)
[2019-04-30 05:24] LABS: ALT (SGPT) 20 U/L (8-55); AST (SGOT) 26 U/L (5-34); Albumin 3.3 g/dL (3.4-4.8); Alkaline Phosphatase 87 U/L (40-110); BUN (Urea Nitrogen) 19 mg/dL (9.8-20.1); Bilirubin, Total 0.4 mg/dL (0.2-1.2); Calc. Creatinine Clearance 75 mL/min (70-130); Calcium 9.6 mg/dL (7.8-10.44); Estimated GFR-MDRD 79; Globulin 3.5 g/dL (2.4-3.5); Glucose 101 mg/dL (83-110); Protein, Total 6.8 g/dL (6.0-8.3)
[2019-04-30 05:32] LABS: Anion Gap 17 mmol/L (10-20); Carbon Dioxide 36 mmol/L (23-31); Chloride 89 mmol/L (98-107); Potassium 4.1 mmol/L (3.5-5.1); Sodium 138 mmol/L (136-145)
[2019-04-30] MEDS: Levothyroxine Sodium 100 MCG TAB PO SCH (05:56)
[2019-04-30] MEDS: Furosemide 40 MG/4 ML VIAL SLOW IVP SCH ×2 (05:56→15:26)
--- NOTE | 2019-04-30 07:44 | PDOC.FM ---
- Subjective Subjective: Mrs. Blum was resting comfortably in her hospital bed at the time of evaluation. She denied any acute overnight events, and stated that her breathing continues to improve. Specifically, she denied any fevers, chills, N/V /D or chest pain. - Objective Vital Signs & Weight: Vital Signs (12 hours) Temp Pulse Resp BP Pulse Ox 04/30/19 04:00 96.2 F L 67 16 146/67 H 96 04/29/19 23:55 97.5 F L 66 16 149/71 H 94 L Weight Weight 97.2 kg I&O: 04/29/19 04/30/19 05/01/19 06:59 06:59 06:59 Intake Total 1320 865 Output Total 1850 2875 Balance - Result Diagrams: 04/27/19 06:30 04/30/19 04:48 Phys Exam - Physical Examination Constitutional: NAD HEENT: PERRLA, moist MMs, sclera anicteric, oral pharynx no lesions Neck: supple, full ROM Respiratory: no wheezing, no rales, no rhonchi, clear to auscultation bilateral Cardiovascular: RRR, no significant murmur, no rub Gastrointestinal: soft, non-tender, no distention Musculoskeletal: pulses present +1 pitting edema, bilaterally - conitnues to resolve Neurological: non-focal, moves all 4 limbs Psychiatric: normal affect Skin: no rash Dx/Plan - Plan Plan: 84 y/o female w/ CHF exacerbation, complicated by UTI. # CHF Exacerbation -HPI significant for SOB and signs of fluid overload in setting of known cardiac dysfunction -BNP: 3483 -CXR: Cardiomegaly, sub-optimal evaluation lower left lung -s/p Lasix 40 mg IV in [place] ED - takes Lasix 40 mg PO BID at home -Strict I&Os -Echo: Pending -Lasix 40 mg IV BID, s/p additional dose on 04/29 -Urine Output: ~2750 ml down over past 24H -Fluid Restriction: 1500 ml # Elevated Troponins -Patient denied Chest Pain at admission -Likely 2/2 to CHF Exacerbation -Troponins: 0.124, 0.111, 0.098 -Will continue to evaluate clinically # UTI -UA: Trace LE, 1+ Bacteria; [place] ED reported "pus in urine" -Patient denied dysuria at admission -UCx: Vancomycin Resistant Enterococcus -Ceftriaxone 1 gm IV Q24H -Currently on Amoxicillin 500 mg TID - will convert to BID dosing prior to DC due to Dementia # OA -No history of recent falls or complaints of pain -Continue home medication regimen # GERD -Continue home medication regimen # Gout -Continue home medication regimen # Hypothyroid -Continue home medication regimen # HTN -BP: 146/67 on 04/30 -Continue home medication regimen - consider adjunct therapies if needed Code: Patient desired Full Code at Admission despite being A&Ox2 - Will reengage w/ Patient's MPOA (Rosa Ellislock - /Home: ) Diet: Heart Healthy, Low Sodium - Fluid Restriction per above DVT PPx: Lovenox 40 mg SC Activity: Ambulate w/ Assist Dispo: Patient is currently stable on Telemetry Floor for observation. Awaiting Echo results - will continue fluid diuresis and treatment of UT. Continue to monitor clinically and evaluate for resolution of CHF exacerbation. Expected LOS < 24H
[2019-04-30] MEDS: AMOXicillin 250 MG CAP PO SCH ×3 (08:32→21:29)
[2019-04-30] MEDS: predniSONE 20 MG TAB PO SCH (08:32)
[2019-04-30] MEDS: Enoxaparin Sodium 40 MG/0.4 ML SYRINGE SC SCH (08:32)
[2019-04-30] MEDS: Aspirin 325 MG TAB PO SCH (08:32)
[2019-04-30] MEDS: Polyethylene Glycol 3350 17 GM Packet PO SCH (08:32)
[2019-04-30] MEDS: Allopurinol 100 MG TAB PO SCH ×2 (08:33→21:30)
[2019-04-30] MEDS: Docusate 100 MG CAP PO SCH ×2 (08:33→21:30)
[2019-04-30] MEDS: Metolazone 5 MG TAB PO SCH ×2 (08:33→21:30)
[2019-04-30] MEDS: Potassium Chloride 10 MEQ TAB PO SCH ×2 (08:33→21:30)
[2019-04-30 09:12] LABS: #Eosinphils 0.2 thou/uL (0.0-0.7); #Lymphocytes 2.2 thou/uL (1.20-3.40); #Neutrophils 5.4 thou/uL (1.40-6.50); %Basophils 0.5 % (0.0-1.0); %Eosinophils 2.2 % (0.0-10.0); %Lymphocytes 24.6 % (21.0-51.0); %Monocytes 11.2 % (0.0-10.0); %Neutrophils 61.6 % (42.0-75.0); Hemoglobin 14.8 g/dL (12.0-16.0); Mean Corpuscular HGB CONC 31.9 g/dL (32.0-36.0); Mean Corpuscular Hemoglobin 30.9 pg (27.0-31.0); Mean Corpuscular Volume 96.7 fL (78.0-98.0); Mean Platelet Volume 8.2 fL (7.4-10.4); Platelet Count 188 thou/uL (130-400); RBC Distribution Width 15.1 % (11.5-14.5); White Blood Cell (WBC) Count 8.8 thou/uL (4.8-10.8)
[2019-04-30 09:19] LABS: Magnesium 1.9 mg/dL (1.6-2.6); Phosphorus 3.8 mg/dL (2.3-4.7)
--- NOTE | 2019-04-30 18:32 | PRG ---
DATE OF SERVICE: Please see the note from Dr. Shan Palafox which I agree. Patient is seen, evaluated, discussed, and examined with residents by bedside. This is an 84-year-old female who came in from [facility], sounds like CHF, volume overload, sounds like secondary to noncompliance as they are allowing her to eat and drink whatever and much fluid in. Had almost 3 L diuresis and symptom melendez doing a lot better now. Really not having much complaints of shortness of breath or anything like that. Exam shows fairly clear lungs and just trace edema in her legs. Plan is hopefully get her out back to the [facility] accept her with a 1.5 L fluid restriction and back on home Lasix. Job ID: [id number]
[2019-05-01 04:48] LABS: ALT (SGPT) 20 U/L (8-55); AST (SGOT) 20 U/L (5-34); Albumin 3.1 g/dL (3.4-4.8); Alkaline Phosphatase 85 U/L (40-110); BUN (Urea Nitrogen) 22 mg/dL (9.8-20.1); Bilirubin, Total 0.3 mg/dL (0.2-1.2); Calc. Creatinine Clearance 78 mL/min (70-130); Calcium 9.5 mg/dL (7.8-10.44); Estimated GFR-MDRD 83; Globulin 2.7 g/dL (2.4-3.5); Glucose 110 mg/dL (83-110); Protein, Total 5.8 g/dL (6.0-8.3)
[2019-05-01 04:56] LABS: Anion Gap 16 mmol/L (10-20); Chloride 85 mmol/L (98-107); Sodium 139 mmol/L (136-145)
[2019-05-01 05:01] LABS: Carbon Dioxide 41 mmol/L (23-31)
[2019-05-01] MEDS ORDERED: Potassium Chloride 20 MEQ TAB PO SCH (05:30)
[2019-05-01] MEDS: Levothyroxine Sodium 100 MCG TAB PO SCH (05:37)
[2019-05-01] MEDS: Furosemide 40 MG/4 ML VIAL SLOW IVP SCH ×2 (05:37→14:47)
--- NOTE | 2019-05-01 06:04 | PDOC.FM ---
- Subjective Subjective: Mrs. Blum was being changed by nursing staff at the time of evaluation. She denied any acute overnight events and felt that she was ready to return to her senior living. - Objective Vital Signs & Weight: Vital Signs (12 hours) Temp Pulse Resp BP Pulse Ox 05/01/19 03:57 97.6 F 69 18 142/60 H 100 04/30/19 23:35 98.8 F 65 18 133/63 100 04/30/19 19:10 98.6 F 60 20 141/86 H 100 Weight Weight 97.2 kg I&O: 04/29/19 04/30/19 05/01/19 06:59 06:59 06:59 Intake Total 5236 360 2260 Output Total 1850 2875 2300 Balance -530 -2010 -1160 Result Diagrams: 04/30/19 08:56 05/01/19 04:00 Phys Exam - Physical Examination Constitutional: NAD HEENT: PERRLA, moist MMs, sclera anicteric, oral pharynx no lesions Neck: supple, full ROM Respiratory: no wheezing, no rales, no rhonchi, clear to auscultation bilateral Greatly improved since presentation Cardiovascular: RRR, no significant murmur, no rub Gastrointestinal: soft, non-tender, no distention, positive bowel sounds +1 pitting edema to mid-tibia, bilaterally Neurological: non-focal, moves all 4 limbs Psychiatric: normal affect Skin: no rash Dx/Plan - Plan Plan: 84 y/o female w/ CHF exacerbation, complicated by UTI. # CHF Exacerbation -HPI significant for SOB and signs of fluid overload in setting of known cardiac dysfunction -BNP: 3483 -CXR: Cardiomegaly, sub-optimal evaluation lower left lung -s/p Lasix 40 mg IV in [facility] - takes Lasix 40 mg PO BID at home -Strict I&Os -Echo: EF 20-30%, Atrial Dilation -Lasix 40 mg IV BID, s/p additional dose on 04/29 -Urine Output: ~3750 ml down over past 48H -Fluid Restriction: 1500 ml # Elevated Troponins -Patient denied Chest Pain at admission -Likely 2/2 to CHF Exacerbation -Troponins: 0.124, 0.111, 0.098 -Will continue to evaluate clinically # UTI -UA: Trace LE, 1+ Bacteria; [facility] reported "pus in urine" -Mild mucoid discharge noted in diaper on 05/01 -Patient denies dysuria, but overall clinical picture may be clouded by Dementia -UCx: Vancomycin Resistant Enterococcus -s/p Ceftriaxone 1 gm IV -Currently on Amoxicillin 500 mg TID - will convert to BID dosing prior to DC due to Dementia # OA -No history of recent falls or complaints of pain -Continue home medication regimen # GERD -Continue home medication regimen # Gout -Continue home medication regimen # Hypothyroid -Continue home medication regimen # HTN -BP: 142/60 on 05/01 - at goal -Continue home medication regimen - consider adjunct therapies if needed Code: Patient desired Full Code at Admission despite being A&Ox2 - Will reengage w/ Patient's MPOA ([facility] - /Home: ) Diet: Heart Healthy, Low Sodium - Fluid Restriction per above DVT PPx: Lovenox 40 mg SC Activity: Ambulate w/ Assist Dispo: Patient is currently stable on Telemetry Floor for observation. Case Management contacted on 04/30 in order to facilitate DC planning - will continue fluid diuresis and treatment of UTI until transportation is available. Continue to monitor clinically and evaluate for resolution of CHF exacerbation. Expected LOS < 24H
[2019-05-01] MEDS: predniSONE 20 MG TAB PO SCH (10:19)
[2019-05-01] MEDS: Allopurinol 100 MG TAB PO SCH ×2 (10:19→20:54)
[2019-05-01] MEDS: Enoxaparin Sodium 40 MG/0.4 ML SYRINGE SC SCH (10:20)
[2019-05-01] MEDS: AMOXicillin 250 MG CAP PO SCH ×3 (10:20→20:54)
[2019-05-01] MEDS: Aspirin 325 MG TAB PO SCH (10:20)
[2019-05-01] MEDS: Docusate 100 MG CAP PO SCH ×2 (10:20→20:55)
[2019-05-01] MEDS: Metolazone 5 MG TAB PO SCH ×2 (10:21→20:55)
[2019-05-01] MEDS: Potassium Chloride 10 MEQ TAB PO SCH ×2 (10:21→20:55)
[2019-05-01] MEDS: Polyethylene Glycol 3350 17 GM Packet PO SCH (10:22)
--- NOTE | 2019-05-01 13:42 | PRG ---
DATE OF SERVICE: 05/01/2019 Please see note from Dr. Palafox, for which I agree. The patient was seen, evaluated, discussed, and examined with the residents at bedside. The patient continues to have a really good diuresis with about 4 L in 3 days and little bit of low potassium, but we will replace that. Ejection fraction did come back 20% to 30% and definitely has a systolic heart failure, but symptom melendez, doing a lot better and breathing better, trace edema in her legs. Her lungs sound clear and hopefully, we will be able to get her out to senior care. Did have the VRE, UTI that seems to be sensitive to amoxicillin, so should be able to go out on that. Job ID: [id number]
--- NOTE | 2019-05-02 05:36 | PDOC.FM ---
- Subjective Subjective: Pt denies pain this AM. Denies SOB. Complains of diffuse abdominal pain that is nonspecific. Otherwise, feels ready to go back to [facility] in private room. - Objective MAR Reviewed: Yes Vital Signs & Weight: Vital Signs (12 hours) Temp Pulse Resp BP Pulse Ox 05/02/19 04:00 97.3 F L 67 16 132/59 L 92 L 05/02/19 00:00 109/59 L 05/01/19 20:45 98.5 F 70 18 129/63 100 Weight Weight 89.3 kg I&O: 04/30/19 05/01/19 05/02/19 06:59 06:59 06:59 Intake Total 865 1540 600 Output Total 2875 3800 1250 Balance -2009 -2260 -650 Result Diagrams: 04/30/19 08:56 05/02/19 06:24 EKG Reviewed by me: Yes Radiology Reviewed by me: Yes Phys Exam - Physical Examination Constitutional: NAD Respiratory: no wheezing, clear to auscultation bilateral Cardiovascular: RRR, no significant murmur Gastrointestinal: soft, no distention, positive bowel sounds (diffuse tenderness over all areas of palpation) Musculoskeletal: edema present (2+ pitting) Neurological: non-focal Psychiatric: normal affect (AxO x2 at baseline) Dx/Plan (1) VRE (vancomycin-resistant Enterococci) infection Code(s): A49.1 - STREPTOCOCCAL INFECTION, UNSPECIFIED SITE; Z16.21 - RESISTANCE TO VANCOMYCIN Status: Acute (2) Hx of gout Code(s): Z87.39 - PERSONAL HISTORY OF DISEASES OF THE MS SYS AND CONN TISS Status: Chronic (3) HTN (hypertension) Code(s): I10 - ESSENTIAL (PRIMARY) HYPERTENSION Status: Acute (4) Hypothyroid Code(s): E03.9 - HYPOTHYROIDISM, UNSPECIFIED Status: Acute (5) Obesity Code(s): E66.9 - OBESITY, UNSPECIFIED Status: Acute (6) Osteoarthritis Code(s): M19.90 - UNSPECIFIED OSTEOARTHRITIS, UNSPECIFIED SITE Status: Acute - Plan Plan: 84 y/o black female w/ CHF exacerbation, complicated by UTI: CHF Exacerbation -BNP: 3483 -CXR: Cardiomegaly, sub-optimal evaluation lower left lung -s/p Lasix 40 mg IV in [facility] - takes Lasix 40 mg PO BID at home -Strict I&Os -Echo: EF 20-30%, Atrial Dilation -Reviewing chart and cardiology has not been consulted. -Continue diuresis w/ lasix, metolazone, and diamox given contraction alkalosis -Fluid Restriction: 1500 ml Elevated Troponins -no chest pain -Troponins: 0.124, 0.111, 0.098. Downtrended. UTI -UCx: Vancomycin Resistant Enterococcus -s/p Ceftriaxone 1 gm IV -Currently on Amoxicillin 500 mg TID, d/c on 875mg BID for 7 more days OA GERD Gout Hypothyroidism HTN -Continue home medication regimen Code: Patient desired Full Code at Admission despite being A&Ox2 [facility] ([facility] - /Home: ) has been contacted several times. Has not returned calls. Diet: Heart Healthy, Low Sodium - Fluid Restriction 1.5 L DVT PPx: Lovenox 40 mg SC Activity: Ambulate w/ Assist Dispo: tele inpt. Need to contact [facility] and determine pt code status and consult cardiology as pt has EF of 20-30%.
[2019-05-02] MEDS: Levothyroxine Sodium 100 MCG TAB PO SCH (06:28)
[2019-05-02] MEDS: Furosemide 40 MG/4 ML VIAL SLOW IVP SCH (06:28)
[2019-05-02 07:15] LABS: ALT (SGPT) 25 U/L (8-55); AST (SGOT) 31 U/L (5-34); Albumin 3.5 g/dL (3.4-4.8); Alkaline Phosphatase 77 U/L (40-110); BUN (Urea Nitrogen) 22 mg/dL (9.8-20.1); Bilirubin, Total 0.6 mg/dL (0.2-1.2); Calc. Creatinine Clearance 69 mL/min (70-130); Calcium 10.5 mg/dL (7.8-10.44); Carbon Dioxide Greater than 37 mmol/L (23-31); Chloride 83 mmol/L (98-107); Estimated GFR-MDRD 80; Globulin 3.6 g/dL (2.4-3.5); Glucose 88 mg/dL (83-110); Potassium 3.7 mmol/L (3.5-5.1); Protein, Total 7.1 g/dL (6.0-8.3); Sodium 134 mmol/L (136-145)
[2019-05-02] MEDS ORDERED: predniSONE 20 MG TAB PO SCH (08:00)
[2019-05-02] MEDS: AcetaZOLAMIDE 250 MG TAB PO SCH (11:12)
[2019-05-02] MEDS: AMOXicillin 250 MG CAP PO SCH ×3 (11:12→20:36)
[2019-05-02] MEDS: Potassium Chloride 10 MEQ TAB PO SCH ×2 (11:12→20:35)
[2019-05-02] MEDS: Allopurinol 100 MG TAB PO SCH ×2 (11:12→20:35)
[2019-05-02] MEDS: Docusate 100 MG CAP PO SCH ×2 (11:12→20:36)
[2019-05-02] MEDS: Enoxaparin Sodium 40 MG/0.4 ML SYRINGE SC SCH (11:13)
[2019-05-02] MEDS: Aspirin 325 MG TAB PO SCH (11:13)
[2019-05-02] MEDS: Polyethylene Glycol 3350 17 GM Packet PO SCH (11:14)
--- NOTE | 2019-05-02 11:47 | CON ---
DATE OF CONSULTATION: HISTORY OF PRESENT ILLNESS: The patient is an 84-year-old woman with history of bradycardia, who presented with increasing dyspnea. The patient has a previous history of bradycardia. She was seen in 2017 after undergoing surgery. The patient was at that time found to be severely hypothyroid. The patient presented with increasing dyspnea. She denies having any chest discomfort. PAST MEDICAL HISTORY: Significant for, 1. Hypertension. 2. Hypothyroidism. 3. Gout. 4. Dementia. PAST SURGICAL HISTORY: None. SOCIAL HISTORY: Nonsmoker. ALLERGIES: NO KNOWN DRUG ALLERGIES. MEDICATIONS: See nursing list. ALLERGIES: NO KNOWN DRUG ALLERGIES. PHYSICAL EXAMINATION: GENERAL: This is an obese woman, who is confused, alert and oriented x2. VITAL SIGNS: Blood pressure of 132/59. NECK: Showed no jugular venous distention. LUNGS: Clear to auscultation. HEART: Regular rate and rhythm. Normal S1 and S2. ABDOMEN: Distended. EXTREMITIES: Showed no edema. VASCULAR: Radial pulses are 2+. LABORATORY RESULTS: Sodium was 134, potassium 3.7, chloride 98, bicarb was 37, BUN 22, and creatinine 0.82. White blood cell count 8.8, hemoglobin 14.8, hematocrit 46.4, and platelets are 188. EKG revealed normal sinus rhythm with first-degree AV block and left bundle-branch block. Echocardiogram revealed severe decreased left ventricular ejection fraction 20% to 25%. IMPRESSION: 1. Congestive heart failure, new onset. 2. Cardiomyopathy. 3. 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 4. Hypertension. 5. History of bradycardia. 6. History of hypothyroidism. 7. Dementia. PLAN: This patient presents with new-onset congestive heart failure. The patient has a very low ejection fraction and from a cardiac standpoint, she should be on ANNIE inhibitor therapy. We would avoid beta-shaq therapy with her conduction disease. We would add spironolactone with her history of dementia. We would treat conservatively. We will follow this patient with you through her hospitalization. Job ID: [id number]
[2019-05-02] MEDS: Metolazone 5 MG TAB PO SCH (12:27)
[2019-05-02] MEDS ORDERED: Lisinopril 5 MG TAB PO SCH (13:00)
[2019-05-02] MEDS: Lisinopril 5 MG TAB PO SCH ×2 (13:31→20:35)
--- NOTE | 2019-05-02 17:31 | PRG ---
DATE OF SERVICE: 05/02/2019 Ms. Blum is an 84-year-old lady, who was admitted with new onset heart failure. She has been seen in consultation by Cardiology. We have appreciated their input. They have recommended in addition to her diuresis, the addition of ANNIE inhibition. Given that she has had a history in the past of advanced heart block as well as currently left bundle-branch block and first-degree AV block, it is recommended that we not use beta shaq therapy for her heart failure. We will begin an ANNIE and add spironolactone. Job ID: [id number]
[2019-05-02] MEDS: Ondansetron ODT 4 MG TAB PO PRN (18:55)
[2019-05-02] MEDS: Acetaminophen 325 MG TAB PO PRN (20:35)
[2019-05-03 04:45] LABS: Albumin 3.2 g/dL (3.4-4.8)
[2019-05-03 04:46] LABS: Chloride 86 mmol/L (98-107); Potassium 5.4 mmol/L (3.5-5.1); Sodium 131 mmol/L (136-145)
[2019-05-03 04:47] LABS: Calcium 9.6 mg/dL (7.8-10.44)
[2019-05-03 04:48] LABS: Globulin 4.3 g/dL (2.4-3.5); Glucose 109 mg/dL (83-110); Protein, Total 7.5 g/dL (6.0-8.3)
[2019-05-03 04:49] LABS: Carbon Dioxide 25 mmol/L (23-31)
[2019-05-03 04:50] LABS: Alkaline Phosphatase 71 U/L (40-110); Bilirubin, Total 0.6 mg/dL (0.2-1.2)
[2019-05-03 04:51] LABS: Calc. Creatinine Clearance 63 mL/min (70-130); Estimated GFR-MDRD 72
[2019-05-03 04:52] LABS: BUN (Urea Nitrogen) 28 mg/dL (9.8-20.1)
[2019-05-03 04:53] LABS: AST (SGOT) 65 U/L (5-34)
[2019-05-03 04:54] LABS: ALT (SGPT) 35 U/L (8-55)
[2019-05-03 04:58] LABS: Anion Gap 25 mmol/L (10-20)
--- NOTE | 2019-05-03 06:07 | PDOC.FM ---
- Subjective Subjective: Pt awake this AM. Denies pain, needs, or complaints. Nursing staff changing pt at present time. Pt complains of suprapubic pain again this AM. - Objective MAR Reviewed: Yes Vital Signs & Weight: Vital Signs (12 hours) Temp Pulse Resp BP Pulse Ox 05/03/19 04:00 98.5 F 64 16 128/58 L 93 L 05/02/19 20:00 99.0 F 68 18 110/60 95 Weight Weight 88.813 kg I&O: 05/01/19 05/02/19 05/03/19 06:59 06:59 06:59 Intake Total 1540 960 900 Output Total 3800 2650 600 Balance -2260 -1690 300 Result Diagrams: 04/30/19 08:56 05/03/19 03:57 Phys Exam - Physical Examination Constitutional: NAD Respiratory: no wheezing, clear to auscultation bilateral Cardiovascular: RRR, no significant murmur Gastrointestinal: soft (tender to palpation over RLQ and R side, not specificially tender in suprapubic area), no distention Musculoskeletal: edema present (2+ pitting) Neurological: non-focal Dx/Plan (1) VRE (vancomycin-resistant Enterococci) infection Code(s): A49.1 - STREPTOCOCCAL INFECTION, UNSPECIFIED SITE; Z16.21 - RESISTANCE TO VANCOMYCIN Status: Acute (2) Hx of gout Code(s): Z87.39 - PERSONAL HISTORY OF DISEASES OF THE MS SYS AND CONN TISS Status: Chronic (3) HTN (hypertension) Code(s): I10 - ESSENTIAL (PRIMARY) HYPERTENSION Status: Acute (4) Hypothyroid Code(s): E03.9 - HYPOTHYROIDISM, UNSPECIFIED Status: Acute (5) Obesity Code(s): E66.9 - OBESITY, UNSPECIFIED Status: Acute (6) Osteoarthritis Code(s): M19.90 - UNSPECIFIED OSTEOARTHRITIS, UNSPECIFIED SITE Status: Acute - Plan Plan: 84 y/o black female w/ CHF exacerbation, complicated by UTI: CHF Exacerbation Contraction alkalosis 2/2 diuresis Hyperkalemia 2/2 stopping diuretics -Stopped diuresis w/ lasix and metolazone due to contraction alkalosis -Potassium 5.4 this AM so held home Potassium dose. -Strict I&Os -Echo: EF 20-30%, Atrial Dilation -Fluid Restriction: 1500 ml -Cardiology consulted: appreciate recs. [facility] mg[facility]. -Spironolactone and ACEi started. Will d/c on these medications instead of lasix & likely no longer needs potassium supplementation. Recommend follow up with [facility] ~2 weeks after discharge. Intermittent 2nd degree AV Block, Type 1 and Type 2 - Overnight telemetry mostly NSR in 60s with few seconds of 2nd deg AV block Type 1 and Type 2 at times with resultant bradycardia to 30-40s HR - Cardiology consulted as above - Avoid beta-blockers Elevated Troponins, resolved -no chest pain -Troponins: 0.124, 0.111, 0.098. Downtrended. VRE UTI -UCx: Vancomycin Resistant Enterococcus -s/p Ceftriaxone 1 gm IV -Currently on Amoxicillin 500 mg TID, d/c on 875mg BID for 6 more days OA GERD Gout Hypothyroidism HTN -Continue home medication regimen -Adjusted levothyroxine due to low TSH to 75 mcg daily. Continue to monitor as outpatient and adjust as needed. Code: [facility] ([facility] - /Home: ) has been contacted several times. Has not returned calls. Diet: Heart Healthy, Low Sodium - Fluid Restriction 1.5 L DVT PPx: Lovenox 40 mg SC Activity: Ambulate w/ Assist Dispo: tele inpt. Likely d/c today back to [facility].
[2019-05-03] MEDS: Levothyroxine Sodium 100 MCG TAB PO SCH (06:32)
[2019-05-03] MEDS: Lisinopril 5 MG TAB PO SCH ×2 (08:49→21:02)
[2019-05-03] MEDS: Enoxaparin Sodium 40 MG/0.4 ML SYRINGE SC SCH (08:50)
[2019-05-03] MEDS: predniSONE 5 MG TAB PO SCH (08:50)
[2019-05-03] MEDS: Spironolactone 25 MG TAB PO SCH (08:50)
[2019-05-03] MEDS: AcetaZOLAMIDE 250 MG TAB PO SCH (08:50)
[2019-05-03] MEDS: Aspirin 325 MG TAB PO SCH (08:50)
[2019-05-03] MEDS: Allopurinol 100 MG TAB PO SCH ×2 (08:50→21:05)
[2019-05-03] MEDS: Docusate 100 MG CAP PO SCH ×2 (08:50→21:02)
[2019-05-03] MEDS: AMOXicillin 250 MG CAP PO SCH ×3 (08:50→21:05)
[2019-05-03] MEDS: Polyethylene Glycol 3350 17 GM Packet PO SCH (08:51)
--- NOTE | 2019-05-03 08:54 | DIS ---
DATE OF ADMISSION: 04/27/2019 DATE OF DISCHARGE: 05/02/2019 RESIDENT: Shan Palafox MD ADMITTING ATTENDING: Senthil Caballero MD DISCHARGE ATTENDING: Evgeny Lopez MD CONSULTS: None. PROCEDURES: Echocardiogram, transthoracic revealing an ejection fraction of 20% to 25% with paradoxical septal motion. Left atrium was moderately to severely dilated with moderate mitral regurgitation present. No evidence of mitral valve stenosis, aortic stenosis with a moderately elevated pulmonary artery pressure. PRIMARY DIAGNOSIS: Congestive heart failure exacerbation. SECONDARY DIAGNOSES: 1. Cystitis. 2. Gout. 3. Osteoarthritis. 4. Obesity. 5. Hypothyroidism. 6. Mobitz type 2 heart block. 7. Hypertension. DISCHARGE MEDICATIONS: Amoxicillin 875 mg p.o. b.i.d. for 7 days. DISCONTINUED MEDICATIONS: 1. Acetaminophen 650 mg p.o. q.4 hours. 2. Allopurinol 100 mg p.o. b.i.d. 3. Aspirin 325 mg p.o. daily. 4. Colace 100 mg p.o. b.i.d. 5. Lovenox 40 mg SC daily. 6. Furosemide 40 mg IV twice daily. 7. Levothyroxine 100 mcg p.o. daily. 8. Metolazone 5 mg p.o. b.i.d. 9. Zofran 4 mg p.o. q.4 hours. 10. Protonix 40 mg p.o. daily. 11. Potassium chloride 10 mEq p.o. b.i.d. HISTORY OF PRESENT ILLNESS/HOSPITAL COURSE: Ms. Blum is a pleasant 84-year-old female with a history of dementia, who presents to the [place] with a chief complaint of shortness of breath. Her past medical history is significant for CHF, hypothyroidism, gout, GERD, and hypertension. She admitted to shortness of breath and difficulty walking. She endorses a cough that is productive. She states that she is needing breathing treatments as well as endorsing fatigue and having no energy. Bowel movements were normal and she denies any blood in her stool or urine. She endorses sporadic nausea and vomiting. Denying dysuria. She stated she has seen a pedal assembler, but was unable to recall which pedal assembler. She was subsequently transferred to [facility] in [place], [place] for adequate evaluation and treatment for apparent CHF exacerbation. She was placed on a 1500 mL fluid restricted diet, of which she had most likely not been compliant with prior to presentation. BNP was elevated over 4000. She was started on a course of DuoNebs and Lasix eventually doubling her home dosage with a subsequent addition of metolazone during her hospital stay. Strict I and Os were maintained and as of 05/02/2019, she had diuresed approximately 6 L of fluid. During her hospital stay, her condition improved greatly and she had less difficulty breathing. Physical exam continued to improve. She had fewer crackles in her lungs, eventually having a clear cardiopulmonary examination. She continued to have +1 to trace pitting edema in her legs up to her mid tibia. During her evaluation, she was also noted to have green mucoid discharge and was subsequently worked up for possible UTI. Urine culture revealed vancomycin-resistant Enterococcus susceptible to amoxicillin. As such, she will be discharged on amoxicillin 875 mg p.o. b.i.d. for 7 days. Prior to discharge, her most recent vital signs revealed a temperature of 97.3, heart rate of 67, blood pressure 132/59, respirations 16 per minute, O2 saturations 92% on room air. Laboratory analysis revealed a white blood cell count of 8.8, hemoglobin 14.8, hematocrit 46.4, platelet count 188. Chem panel revealed a sodium of 134, potassium of 3.7, chloride 83, carbon dioxide 37, BUN 22, creatinine 0.82, glucose 88, calcium 10.5, phosphorus 3.8, magnesium 1.9, total bilirubin 0.6, AST 31, ALT 25, alkaline phosphatase 77, CK-MB 1.6. Troponins 0.124, 0.111, 0.098, most likely secondary to fluid overload and cardiac strain. DISPOSITION: Stable. DISCHARGE INSTRUCTIONS: 1. Location: Previously established Residential. 2. Diet: Fluid restriction of less than 1500 mL fluid per day. Heart healthy and carbohydrate conscious. 3. Activity: No restrictions. 4. Followup: The patient was encouraged to follow up with her primary care provider within 2 to 3 weeks. Overall, her condition improved greatly during the time of the hospital and she was happy with the level of care that she received. Job ID: [id number]
--- NOTE | 2019-05-03 11:59 | PRG ---
DATE OF SERVICE: 05/03/2019 Ms. Blum is resting quietly in bed, in no acute distress. She is nearing time for discharge. She will be placed on Lasix, spironolactone, and an ANNIE inhibitor for close followup with her PCP in 1 week and especially to recheck a BMP. Job ID: [id number]
[2019-05-03 12:40] LABS: Anion Gap 18 mmol/L (10-20); BUN (Urea Nitrogen) 29 mg/dL (9.8-20.1); Calc. Creatinine Clearance 60 mL/min (70-130); Carbon Dioxide 36 mmol/L (23-31); Chloride 84 mmol/L (98-107); Estimated GFR-MDRD 68; Glucose 119 mg/dL (83-110); Sodium 135 mmol/L (136-145)
[2019-05-03 12:51] LABS: Potassium 2.9 mmol/L (3.5-5.1)
[2019-05-03] MEDS ORDERED: Potassium Chloride 20 MEQ TAB PO SCH (13:00)
[2019-05-03] MEDS: Acetaminophen 325 MG TAB PO PRN (14:56)
[2019-05-03 17:35] LABS: Anion Gap 18 mmol/L (10-20); BUN (Urea Nitrogen) 30 mg/dL (9.8-20.1); Calc. Creatinine Clearance 65 mL/min (70-130); Calcium 9.6 mg/dL (7.8-10.44); Carbon Dioxide 33 mmol/L (23-31); Chloride 87 mmol/L (98-107); Estimated GFR-MDRD 76; Glucose 133 mg/dL (83-110); Magnesium 2.1 mg/dL (1.6-2.6); Potassium 3.8 mmol/L (3.5-5.1); Sodium 134 mmol/L (136-145)
[2019-05-03] MEDS: Ondansetron ODT 4 MG TAB PO PRN (21:02)
[2019-05-04 05:11] LABS: Anion Gap 16 mmol/L (10-20); BUN (Urea Nitrogen) 34 mg/dL (9.8-20.1); Calc. Creatinine Clearance 62 mL/min (70-130); Calcium 9.4 mg/dL (7.8-10.44); Carbon Dioxide 32 mmol/L (23-31); Chloride 90 mmol/L (98-107); Estimated GFR-MDRD 71; Glucose 92 mg/dL (83-110); Potassium 3.4 mmol/L (3.5-5.1); Sodium 135 mmol/L (136-145)
--- NOTE | 2019-05-04 05:52 | PDOC.FM ---
- Subjective Subjective: Pt feeling fine this AM. Denies pain. Is sleepy and waiting for breakfast. - Objective MAR Reviewed: Yes Vital Signs & Weight: Vital Signs (12 hours) Temp Pulse Resp BP BP Pulse Ox 05/04/19 03:20 98.2 F 90 16 132/78 98 05/03/19 21:02 65 120/71 05/03/19 20:35 98.9 F 65 17 117/55 L 94 L Weight Weight 88.1 kg I&O: 05/02/19 05/03/19 05/04/19 06:59 06:59 06:59 Intake Total 960 1030 970 Output Total 2650 700 650 Balance -1690 330 320 Result Diagrams: 04/30/19 08:56 05/04/19 04:49 Phys Exam - Physical Examination Constitutional: NAD Respiratory: no wheezing, clear to auscultation bilateral Cardiovascular: RRR Gastrointestinal: soft, non-tender, no distention Musculoskeletal: edema present (2+ pitting unchanged) Dx/Plan (1) VRE (vancomycin-resistant Enterococci) infection Code(s): A49.1 - STREPTOCOCCAL INFECTION, UNSPECIFIED SITE; Z16.21 - RESISTANCE TO VANCOMYCIN Status: Acute (2) Hx of gout Code(s): Z87.39 - PERSONAL HISTORY OF DISEASES OF THE MS SYS AND CONN TISS Status: Chronic (3) HTN (hypertension) Code(s): I10 - ESSENTIAL (PRIMARY) HYPERTENSION Status: Acute (4) Hypothyroid Code(s): E03.9 - HYPOTHYROIDISM, UNSPECIFIED Status: Acute (5) Obesity Code(s): E66.9 - OBESITY, UNSPECIFIED Status: Acute (6) Osteoarthritis Code(s): M19.90 - UNSPECIFIED OSTEOARTHRITIS, UNSPECIFIED SITE Status: Acute - Plan Plan: 84 y/o black female w/ CHF exacerbation, complicated by UTI: CHF Exacerbation Contraction alkalosis 2/2 diuresis Hypokalemia, chronic -Stopped diuresis w/ lasix and metolazone due to contraction alkalosis -Sample hemolyzed yesterday, potassium remains chronically low -Strict I&Os -Echo: EF 20-30%, Atrial Dilation -Fluid Restriction: 1500 ml -Cardiology consulted: appreciate recs. [facility]. -Spironolactone and ACEi started. -Will continue lasix at home and repeat BMP in 1 week at shelter. Intermittent 2nd degree AV Block, Type 1 and Type 2 - Overnight telemetry mostly NSR in 60s with few seconds of 2nd deg AV block Type 1 and Type 2 at times with resultant bradycardia to 30-40s HR - Cardiology consulted as above - Avoid beta-blockers Elevated Troponins, resolved -no chest pain -Troponins: 0.124, 0.111, 0.098. Downtrended. VRE UTI -UCx: Vancomycin Resistant Enterococcus -s/p Ceftriaxone 1 gm IV -Currently on Amoxicillin 500 mg TID, changed to 875mg BID for 5 more days OA GERD Gout Hypothyroidism HTN -Continue home medication regimen -Adjusted levothyroxine due to low TSH to 75 mcg daily. Continue to monitor as outpatient and adjust as needed. Code: FULL [facility] ([facility] - /Home: ) has been contacted several times. Has not returned calls. Diet: Heart Healthy, Low Sodium - Fluid Restriction 1.5 L DVT PPx: Lovenox 40 mg SC Activity: Ambulate w/ Assist Dispo: tele inpt. Likely d/c today back to shelter.
[2019-05-04] MEDS: Levothyroxine Sodium 100 MCG TAB PO SCH (06:08)
[2019-05-04] MEDS ORDERED: Potassium Chloride 20 MEQ TAB PO SCH (08:45)
[2019-05-04] MEDS: AMOXicillin 250 MG CAP PO SCH ×3 (09:14→21:49)
[2019-05-04] MEDS: predniSONE 5 MG TAB PO SCH (09:14)
[2019-05-04] MEDS: Spironolactone 25 MG TAB PO SCH (09:14)
[2019-05-04] MEDS: AcetaZOLAMIDE 250 MG TAB PO SCH (09:14)
[2019-05-04] MEDS: Allopurinol 100 MG TAB PO SCH ×2 (09:14→21:49)
[2019-05-04] MEDS: Docusate 100 MG CAP PO SCH ×2 (09:15→21:49)
[2019-05-04] MEDS: Aspirin 325 MG TAB PO SCH (09:15)
[2019-05-04] MEDS: Polyethylene Glycol 3350 17 GM Packet PO SCH (09:17)
[2019-05-04] MEDS: Enoxaparin Sodium 40 MG/0.4 ML SYRINGE SC SCH (09:17)
[2019-05-04] MEDS: Potassium Chloride 10 MEQ TAB PO SCH ×2 (09:17→21:49)
[2019-05-04] MEDS: Lisinopril 5 MG TAB PO SCH ×2 (09:25→21:49)
--- NOTE | 2019-05-04 11:39 | PRG ---
DATE OF SERVICE: 05/04/2019 Ms. Blum is sitting quietly in bed, in no distress. She will be discharged today with close followup with a BMP in 3 to 5 days. She is on medications that can either raise or lower her potassium and this needs to be monitored closely. Job ID: [id number]
[2019-05-05 04:09] LABS: Anion Gap 12 mmol/L (10-20); BUN (Urea Nitrogen) 37 mg/dL (9.8-20.1); Calc. Creatinine Clearance 57 mL/min (70-130); Calcium 9.2 mg/dL (7.8-10.44); Carbon Dioxide 36 mmol/L (23-31); Chloride 91 mmol/L (98-107); Estimated GFR-MDRD 64; Glucose 101 mg/dL (83-110); Potassium 3.2 mmol/L (3.5-5.1); Sodium 136 mmol/L (136-145)
[2019-05-05] MEDS: Levothyroxine Sodium 100 MCG TAB PO SCH (06:16)
--- NOTE | 2019-05-05 06:34 | PDOC.FM ---
- Subjective Subjective: Pt resting comfortably in bed. Overnight telemetry showed 2nd deg AV block type 1. Had episode of complete heart block for 4.5 seconds yesterday morning. - Objective MAR Reviewed: Yes Vital Signs & Weight: Vital Signs (12 hours) Temp Pulse Resp BP Pulse Ox 05/05/19 04:35 97.7 F 61 20 116/55 L 96 05/04/19 23:45 69 16 110/44 L 95 05/04/19 21:49 64 05/04/19 21:30 98.1 F 64 16 112/56 L 95 Weight Weight 87.09 kg I&O: 05/03/19 05/04/19 05/05/19 06:59 06:59 06:59 Intake Total 1030 1030 720 Output Total 700 950 700 Balance 330 80 20 Result Diagrams: 04/30/19 08:56 05/05/19 03:35 Phys Exam - Physical Examination Constitutional: NAD Respiratory: no wheezing Cardiovascular: RRR, no significant murmur Gastrointestinal: soft, no distention Dx/Plan (1) VRE (vancomycin-resistant Enterococci) infection Code(s): A49.1 - STREPTOCOCCAL INFECTION, UNSPECIFIED SITE; Z16.21 - RESISTANCE TO VANCOMYCIN Status: Acute (2) Hx of gout Code(s): Z87.39 - PERSONAL HISTORY OF DISEASES OF THE MS SYS AND CONN TISS Status: Chronic (3) HTN (hypertension) Code(s): I10 - ESSENTIAL (PRIMARY) HYPERTENSION Status: Acute (4) Hypothyroid Code(s): E03.9 - HYPOTHYROIDISM, UNSPECIFIED Status: Acute (5) Obesity Code(s): E66.9 - OBESITY, UNSPECIFIED Status: Acute (6) Osteoarthritis Code(s): M19.90 - UNSPECIFIED OSTEOARTHRITIS, UNSPECIFIED SITE Status: Acute - Plan Plan: 84 y/o black female w/ CHF exacerbation, complicated by UTI: CHF Exacerbation Contraction alkalosis 2/2 diuresis Hypokalemia, chronic -Stopped diuresis w/ lasix and metolazone due to contraction alkalosis -Strict I&Os -Echo: EF 20-30%, Atrial Dilation -Fluid Restriction: 1500 ml -Cardiology consulted: appreciate recs. [facility]. -EP Gino consulted: appreciate recs. Will likely proceed with Bi-ventricular pacemaker placement. Will await further recs. -Spironolactone and ACEi started. -Will continue lasix at home and repeat BMP in 1 week at intermediate. Intermittent 2nd degree AV Block, Type 1 and Type 2 - Cardiology consulted as above - Avoid beta-blockers Elevated Troponins, resolved -no chest pain -Troponins: 0.124, 0.111, 0.098. Downtrended. VRE UTI -UCx: Vancomycin Resistant Enterococcus -s/p Ceftriaxone 1 gm IV -Currently on Amoxicillin 875mg BID for 4 more days OA GERD Gout Hypothyroidism HTN -Continue home medication regimen -Adjusted levothyroxine due to low TSH to 75 mcg daily. Continue to monitor as outpatient and adjust as needed. Code: FULL [facility] ([facility] - /Home: ) has been contacted several times. Has not returned calls. Diet: Heart Healthy, Low Sodium - Fluid Restriction 1.5 L DVT PPx: Lovenox 40 mg SC Activity: Ambulate w/ Assist Dispo: tele inpt.
[2019-05-05] MEDS ORDERED: Potassium Chloride 20 MEQ in Premix Bag 1 BAG IVPB SCH ×2 (06:45)
--- NOTE | 2019-05-05 07:50 | CON ---
DATE OF CONSULTATION: 05/04/2019 I am seeing Ms. Blum at our 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 Her problems are from, 1. Episodic complete AV block with up to 4.2 seconds pauses documented on telemetry. a. Baseline left bundle-branch block. 2. Systolic congestive heart failure, acute on chronic. a. No prior history of myocardial infarction. b. A 2D echo on this admit on 04/30/2019 reveals LVEF of 20% to 25%, moderate to severely enlarged left atrium, moderate mitral regurgitation, mild to moderate AI, mild TR, moderately elevated pulmonary pressures. 3. Hypertension. 4. Hypothyroidism. 5. History of dementia. ALLERGIES: NONE NOTED. MEDICATIONS: At home include; 1. Aspirin. 2. Docusate. 3. Levothyroxine. 4. Allopurinol. 5. Ipratropium. 6. DuoNeb. 7. Prednisone. 8. . 9. Omeprazole. 10. Polyethylene glycol. 11. Furosemide. 12. Potassium. 13. Tylenol. SUBJECTIVE: Ms. Blum is somewhat a poor historian, but she does seem to understand the basics. She tells me that she is living in alf. She was transferred over here for leg pains as she states, although it appears to be more due to dyspnea according to the H and P. She is denying syncopal spells that she can recall. She did have a cough on admission on the 12, which is nonproductive cough. She has difficulty walking. She has a wheelchair to get around. She has significant fatigue and no energy. She has seen a front end specialist in the past, we are not clear whom. She denies weight changes, sleep changes. She does endorse some fevers and chills. Denies dysuria. The rest of 12-point review of system was unremarkable. PAST MEDICAL HISTORY: Significant for bradycardia. SOCIAL HISTORY: The patient lives in a alf. Denies smoking, EtOH, or drug abuse. FAMILY HISTORY: Noncontributory. OBJECTIVE DATA: VITAL SIGNS: Currently blood pressure is 133/61, heart rate 75, respirations 22, and temperature 97.6 degrees Fahrenheit. GENERAL: Alert and oriented woman, in no apparent distress. NECK: Supple. Jugular veins not distended. CHEST: Coarse without crackles. HEART: Sounds are regular rate and rhythm. No murmur or gallop. ABDOMEN: Benign. Bowel sounds positive. EXTREMITIES: Lower extremity without edema, clubbing, or cyanosis. Pulses are adequate. NEUROLOGIC: The patient is nonfocal. MUSCULOSKELETAL: No joint swelling or deformity. SKIN: Without rash. DATABASE: EKG is reviewed, reveal sinus rhythm, left bundle-branch block pattern, markedly widened QRS, rate of 83 beats per minute on admission, first-degree AV block is also noted at 328 milliseconds, which markedly prolonged. Telemetry strips reveal sinus rhythm, occasional non-conducted PACs are noted, but more recently on 05/04/2019 at 8:22 a.m., she developed marked complete AV block with up to 4.7 seconds asystole. LABORATORY DATA: White cell count 8.8, hemoglobin 14.8, and platelet count is 188. Sodium 135, potassium 3.4, BUN is 34, creatinine 0.91, AST and ALT 65 and 35. TSH is 0.1828. BNP on admission was 3483. Chest x-ray from the 12 shows cardiomegaly. ASSESSMENT AND PLAN: Ms. Blum is an 84-year-old woman with a history of hypothyroidism, gout, and bradycardia, who was transferred from [facility] with signs of fluid overload and marked fatigue and tiredness. She was diuresed and also was treated for vancomycin-resistant enterococcus urinary tract infection on ceftriaxone and vancomycin followed by amoxicillin. No more signs of infection are noted and her white cell counts were never markedly elevated. She was noted to have severely reduced LVEF, LBBB with episodic complete AV block. I discussed the potential benefit of a Bi-V pacemaker in her condition. She seems to understand and agreeable to the plan. We will make efforts to reach her niece, who assists with her with the decisions and she is the designated power of privacy attorney. We did discuss with the patient the risk of infection, bleeding, pneumothorax, tamponade, lead dislodgement, device malfunctions, and recalls. She has recent vancomycin-resistant enterococcus in the urine, but no signs of true bacteremia. It is reasonable to proceed. ICD is likely of limited benefit in this elderly frail lady with dementia. We will follow up with you. Thank for the consult. Job ID: [id number] [facility]
[2019-05-05] MEDS ORDERED: AMOXicillin 250 MG CAP PO SCH (09:00)
[2019-05-05] MEDS: Allopurinol 100 MG TAB PO SCH ×2 (09:27→21:56)
[2019-05-05] MEDS: AcetaZOLAMIDE 250 MG TAB PO SCH (09:27)
[2019-05-05] MEDS: Potassium Chloride 10 MEQ TAB PO SCH ×2 (09:27→21:56)
[2019-05-05] MEDS: Aspirin 325 MG TAB PO SCH (09:27)
[2019-05-05] MEDS: Spironolactone 25 MG TAB PO SCH (09:28)
[2019-05-05] MEDS: Docusate 100 MG CAP PO SCH ×2 (09:28→21:57)
[2019-05-05] MEDS: Lisinopril 5 MG TAB PO SCH ×2 (09:28→21:57)
[2019-05-05] MEDS: predniSONE 5 MG TAB PO SCH (09:28)
[2019-05-05] MEDS: Enoxaparin Sodium 40 MG/0.4 ML SYRINGE SC SCH (09:30)
[2019-05-05] MEDS: Polyethylene Glycol 3350 17 GM Packet PO SCH (09:43)
--- NOTE | 2019-05-05 12:29 | PRG ---
DATE OF SERVICE: 05/05/2019 Ms. Blum was noted to have long pauses in the heart rhythm. We reconsulted Dr. Christian. He has noted that she did develop a marked complete AV block for up to almost [address] therefore [address] a BiV pacemaker. Job ID: [id number]
[2019-05-05] MEDS ORDERED: Potassium Chloride 20 MEQ TAB PO SCH (13:15)
[2019-05-05 14:55] VITALS: BMI 31.9
--- NOTE | 2019-05-05 23:55 | PRG ---
DATE OF SERVICE: 05/05/2019 SUBJECTIVE: Ms. Blum constitutionally fair. No full syncopal spell noted. No further signs of infection. No new complaints. OBJECTIVE: VITAL SIGNS: Blood pressure is 116/55, heart rate 61, respiratory rate 20, temperature 97.7 degrees Fahrenheit. GENERAL: Alert and oriented woman, in no apparent distress. NECK: Supple. Jugular veins not distended. CHEST: Coarse without crackles. HEART: Sounds are regular to rate and rhythm. No murmur or gallop. ABDOMEN: Benign. Bowel sounds positive. EXTREMITIES: Lower extremities without edema, clubbing, or cyanosis. DATABASE: Telemetry reveals sinus rhythm, first-degree AV block, left bundle-branch block. ASSESSMENT AND PLAN: Ms. Blum is a pleasant 84-year-old woman with history of syncope, reduced LVEF in 20% to 25% range, who is admitted for heart failure exacerbation. She was also noted to have a left bundle-branch block at baseline with episodic complete AV block. I was consulted by Dr. Collins for consideration of a Bi-V pacing. We discussed the option of Bi-V pacer with this lady and her family. We agreed no defibrillator therapy at this time. She clearly would gain potential symptomatic benefit with a reduction of further hospitalization from a Bi-V pacemaker. Risks were discussed with the family. They are planning to decide today tentatively keep her n.p.o. for a procedure tomorrow. We will continue to follow with you. Job ID: [id number]
[2019-05-06 05:05] LABS: Anion Gap 12 mmol/L (10-20); BUN (Urea Nitrogen) 35 mg/dL (9.8-20.1); Calc. Creatinine Clearance 63 mL/min (70-130); Calcium 9.4 mg/dL (7.8-10.44); Carbon Dioxide 30 mmol/L (23-31); Chloride 94 mmol/L (98-107); Estimated GFR-MDRD 74; Glucose 108 mg/dL (83-110); Potassium 3.5 mmol/L (3.5-5.1); Sodium 132 mmol/L (136-145)
[2019-05-06 06:03] LABS: #Basophils 0.1 thou/uL (0.0-0.2); #Eosinphils 0.2 thou/uL (0.0-0.7); #Lymphocytes 1.9 thou/uL (1.20-3.40); #Monocytes 0.7 thou/uL (0.11-0.59); #Neutrophils 7.1 thou/uL (1.40-6.50); %Basophils 0.5 % (0.0-1.0); %Eosinophils 1.7 % (0.0-10.0); %Lymphocytes 19.4 % (21.0-51.0); %Monocytes 6.7 % (0.0-10.0); %Neutrophils 71.7 % (42.0-75.0); Anisocytosis SLIGHT = 6-15 cells (100X) (0-5/hpf); Hemoglobin 13.7 g/dL (12.0-16.0); MDiff Complete? YES; Mean Corpuscular HGB CONC 30.6 g/dL (32.0-36.0); Mean Corpuscular Hemoglobin 29.9 pg (27.0-31.0); Mean Corpuscular Volume 97.9 fL (78.0-98.0); Mean Platelet Volume 9.1 fL (7.4-10.4); Platelet Count 196 thou/uL (130-400); RBC Distribution Width 15.1 % (11.5-14.5); Red Blood Cell (RBC) Count 4.59 mill/uL (4.20-5.40); White Blood Cell (WBC) Count 9.9 thou/uL (4.8-10.8)
[2019-05-06] MEDS: Levothyroxine Sodium 100 MCG TAB PO SCH (06:16)
--- NOTE | 2019-05-06 06:19 | PDOC.FM ---
- Subjective Subjective: Pt is feeling well today. Denies chest pain, SOB. Says outer diameter grinder tool told her her heart "was good" and that she could go home. When asked about pacemaker, she said, yes the heart doctor will place a pacemaker. Overnight telemetry showed first degree block/prolonged VT without progression of block. - Objective MAR Reviewed: Yes Vital Signs & Weight: Vital Signs (12 hours) Temp Pulse Resp BP Pulse Ox 05/06/19 03:39 98.5 F 59 L 18 121/57 L 98 05/05/19 21:57 58 L 05/05/19 21:52 98.9 F 58 L 16 114/57 L 97 Weight Admit Weight 97.6 kg Weight 87.09 kg I&O: 05/04/19 05/05/19 05/06/19 06:59 06:59 06:59 Intake Total 1030 720 720 Output Total 950 700 640 Balance 80 20 80 Result Diagrams: 05/06/19 03:56 05/06/19 03:56 Phys Exam - Physical Examination Constitutional: NAD Respiratory: no wheezing, clear to auscultation bilateral Cardiovascular: RRR, no significant murmur Musculoskeletal: edema present (1+ pitting, improved) Neurological: non-focal Psychiatric: normal affect Dx/Plan (1) VRE (vancomycin-resistant Enterococci) infection Code(s): A49.1 - STREPTOCOCCAL INFECTION, UNSPECIFIED SITE; Z16.21 - RESISTANCE TO VANCOMYCIN Status: Acute (2) Hx of gout Code(s): Z87.39 - PERSONAL HISTORY OF DISEASES OF THE MS SYS AND CONN TISS Status: Chronic (3) HTN (hypertension) Code(s): I10 - ESSENTIAL (PRIMARY) HYPERTENSION Status: Acute (4) Hypothyroid Code(s): E03.9 - HYPOTHYROIDISM, UNSPECIFIED Status: Acute (5) Obesity Code(s): E66.9 - OBESITY, UNSPECIFIED Status: Acute (6) Osteoarthritis Code(s): M19.90 - UNSPECIFIED OSTEOARTHRITIS, UNSPECIFIED SITE Status: Acute - Plan Plan: 84 y/o black female w/ CHF exacerbation, complicated by UTI: CHF Exacerbation, improved Contraction alkalosis 2/2 diuresis, improved Hypokalemia, chronic -Strict I&Os -Echo: EF 20-30%, Atrial Dilation -Fluid Restriction: 1500 ml -Cardiology consulted: appreciate recs. [facility] [employer] [facility]. -EP [facility] consulted: appreciate recs. Will likely proceed with Bi-ventricular pacemaker placement. Will await further recs. -Spironolactone and ACEi. Potassium sparing drugs yet pt continues to have hypokalemia -Potassium replacement to continue PO since pt does not tolerate IV potassium well. Will replace after pt is no longer NPO following placement of Bi- ventricular pacemaker. -Will continue lasix at home and repeat BMP in 1 week at group home. Intermittent 2nd degree AV Block, Type 1 and Type 2 - Cardiology & EP consulted as above - Avoid beta-blockers Elevated Troponins, resolved -no chest pain VRE UTI -UCx: Vancomycin Resistant Enterococcus -s/p Ceftriaxone 1 gm IV -Currently on Amoxicillin 875mg BID for 3 more days OA GERD Gout Hypothyroidism HTN -Continue home medication regimen -Adjusted levothyroxine due to low TSH to 75 mcg daily. Continue to monitor as outpatient and adjust as needed. -Pt had home med of prednisone, likely a medication continued indefinitely after hospitalization. Have been weaning this. Will decrease to 2.5mg today for 3-4 days. Code: FULL MPOA: Rosa Hargrovelock - /Home: Diet: Heart Healthy, Low Sodium - Fluid Restriction 1.5 L. Supplementation w/ Mighty Shakes. DVT PPx: Lovenox 40 mg SC Activity: Ambulate w/ Assist Dispo: tele inpt.
[2019-05-06] MEDS: Enoxaparin Sodium 40 MG/0.4 ML SYRINGE SC SCH (06:46)
[2019-05-06] MEDS: Docusate 100 MG CAP PO SCH ×2 (09:40→20:32)
[2019-05-06] MEDS: AcetaZOLAMIDE 250 MG TAB PO SCH (09:40)
[2019-05-06] MEDS: Allopurinol 100 MG TAB PO SCH ×2 (09:40→20:31)
[2019-05-06] MEDS: Aspirin 325 MG TAB PO SCH (09:41)
[2019-05-06] MEDS: predniSONE 5 MG TAB PO SCH ×4 (09:41→10:13)
[2019-05-06] MEDS: Potassium Chloride 10 MEQ TAB PO SCH ×2 (09:41→20:32)
[2019-05-06] MEDS: Spironolactone 25 MG TAB PO SCH (09:41)
[2019-05-06] MEDS: Polyethylene Glycol 3350 17 GM Packet PO SCH (09:42)
[2019-05-06] MEDS: Lisinopril 5 MG TAB PO SCH ×2 (09:43→20:32)
[2019-05-06] MEDS ORDERED: Lidocaine 1% (PF) 30 ML VIAL ONE (10:11)
[2019-05-06] MEDS ORDERED: Fentanyl 100 MCG/2 ML VIAL ONE (11:38)
[2019-05-06] MEDS ORDERED: Midazolam HCl 2 mg/2 ml Vial ONE (11:38)
--- NOTE | 2019-05-06 16:17 | PRG ---
DATE OF SERVICE: 05/06/2019 Ms. Blum is having her pacemaker placed after which time we will continue to work on placement in a [facility] skilled facility etc. Job ID: [id number]
[2019-05-07] MEDS: Cephalexin 250 MG CAP PO SCH ×3 (01:10→21:17)
--- NOTE | 2019-05-07 05:57 | PDOC.FM ---
- Subjective Subjective: Pt is feeling well this morning. She feels cold. Overnight telemetry showed HR in 60-70s all night with intermittent pacing. Denies CP, SOB. - Objective MAR Reviewed: Yes Vital Signs & Weight: Vital Signs (12 hours) Temp Pulse Resp BP Pulse Ox 05/07/19 04:00 99.4 F 67 18 143/65 H 93 L 05/07/19 00:00 99.1 F 71 18 153/67 H 96 05/06/19 20:32 69 05/06/19 19:31 99.3 F 69 16 158/57 H 96 Weight Admit Weight 97.6 kg Weight 85.729 kg I&O: 05/05/19 05/06/19 05/07/19 06:59 06:59 06:59 Intake Total 720 840 980 Output Total 700 1140 760 Balance 20 -300 220 Result Diagrams: 05/06/19 03:56 05/06/19 03:56 Phys Exam - Physical Examination Constitutional: NAD Respiratory: no wheezing, clear to auscultation bilateral Cardiovascular: RRR, no significant murmur Musculoskeletal: pulses present (feet feel cold), edema present (1+ pitting bilaterally) Psychiatric: normal affect Dx/Plan (1) VRE (vancomycin-resistant Enterococci) infection Code(s): A49.1 - STREPTOCOCCAL INFECTION, UNSPECIFIED SITE; Z16.21 - RESISTANCE TO VANCOMYCIN Status: Acute (2) Hx of gout Code(s): Z87.39 - PERSONAL HISTORY OF DISEASES OF THE MS SYS AND CONN TISS Status: Chronic (3) HTN (hypertension) Code(s): I10 - ESSENTIAL (PRIMARY) HYPERTENSION Status: Acute (4) Hypothyroid Code(s): E03.9 - HYPOTHYROIDISM, UNSPECIFIED Status: Acute (5) Obesity Code(s): E66.9 - OBESITY, UNSPECIFIED Status: Acute (6) Osteoarthritis Code(s): M19.90 - UNSPECIFIED OSTEOARTHRITIS, UNSPECIFIED SITE Status: Acute - Plan Plan: 84 y/o black female w/ CHF exacerbation, complicated by UTI: CHF Exacerbation, improved Contraction alkalosis 2/2 diuresis, improved Hypokalemia, chronic -Strict I&Os -Echo: EF 20-30%, Atrial Dilation -Fluid Restriction: 1500 ml -Cardiology consulted: appreciate recs. [facility] [employer] [facility]. -EP Gino consulted: appreciate recs. Pacemaker placed 05/06. Abx of Keflex started per Cardiology and to continue for 7 days total. -Spironolactone and ACEi. Potassium sparing drugs yet pt continues to have hypokalemia. -BMP, Magnesium this AM. Replete if necessary and d/c home on increased dose of potassium. -Will continue lasix at home albeit at lower dose, and repeat BMP in 3-4 days at [facility] since pt is on potassium sparing agents. Intermittent 2nd degree AV Block, Type 1 and Type 2 - Cardiology & EP consulted as above - Avoid beta-blockers Elevated Troponins, resolved -no chest pain VRE UTI -UCx: Vancomycin Resistant Enterococcus -s/p Ceftriaxone 1 gm IV -Currently on Amoxicillin 875mg BID for 2 more days OA GERD Gout Hypothyroidism HTN -Continue home medication regimen -Adjusted levothyroxine due to low TSH to 75 mcg daily. Continue to monitor as outpatient and adjust as needed. -Pt had home med of prednisone, likely a medication continued indefinitely after hospitalization. Have been weaning this. 2.5mg for 2 more days, then stop. Code: FULL MPOA: Rosa Hargrove - /Home: Diet: Heart Healthy, Low Sodium - Fluid Restriction 1.5 L. Supplementation w/ Mighty Shakes. DVT PPx: Lovenox 40 mg SC Activity: Ambulate w/ Assist Dispo: tele inpt. Likely d/c to [facility] today. F/U w/ cardiology in 10-14 days. Addendum - Attending - Attending Attestation Date/Time: 05/07/19 1310 I personally evaluated the patient and discussed the management with Dr. Cruz. I agree with the History, Examination, Assessment and Plan documented above with any addition or exceptions noted below. Patient denies concerns this morning and denies issues overnight. She had pacemaker placed yesterday. Await further cardiology recs but should soon be stable for discharge planning.
[2019-05-07] MEDS: Levothyroxine Sodium 100 MCG TAB PO SCH (06:10)
[2019-05-07] MEDS: AcetaZOLAMIDE 250 MG TAB PO SCH (09:25)
[2019-05-07] MEDS: Enoxaparin Sodium 40 MG/0.4 ML SYRINGE SC SCH (09:25)
[2019-05-07] MEDS: Potassium Chloride 10 MEQ TAB PO SCH (09:26)
[2019-05-07] MEDS: Aspirin 325 MG TAB PO SCH (09:26)
[2019-05-07] MEDS: Lisinopril 5 MG TAB PO SCH ×2 (09:26→21:17)
[2019-05-07] MEDS: predniSONE 5 MG TAB PO SCH (09:26)
[2019-05-07] MEDS: Spironolactone 25 MG TAB PO SCH (09:27)
[2019-05-07] MEDS: Polyethylene Glycol 3350 17 GM Packet PO SCH (09:27)
[2019-05-07] MEDS: Docusate 100 MG CAP PO SCH ×2 (09:27→21:17)
[2019-05-07] MEDS: Allopurinol 100 MG TAB PO SCH ×2 (09:29→21:17)
[2019-05-07 11:56] LABS: Anion Gap 14 mmol/L (10-20); BUN (Urea Nitrogen) 22 mg/dL (9.8-20.1); Calc. Creatinine Clearance 78 mL/min (70-130); Calcium 9.2 mg/dL (7.8-10.44); Carbon Dioxide 25 mmol/L (23-31); Chloride 98 mmol/L (98-107); Estimated GFR-MDRD Greater than 90; Glucose 137 mg/dL (83-110); Magnesium 2.2 mg/dL (1.6-2.6); Sodium 134 mmol/L (136-145)
--- NOTE | 2019-05-07 13:38 | PDOC.CPN ---
- Subjective Date: 05/07/19 Time: 13:47 Interval history: The pt seen and examined. No overnight events. No cardiac complaints. She complains of weakness. - Objective Allergies/Adverse Reactions: Allergies Allergy/AdvReac Type Severity Reaction Status Date / Time No Known Drug Allergies Allergy Verified 04/26/19 20:45 Visit Medications: Current Medications Acetaminophen (Tylenol) 650 mg PO Q4H PRN PRN Reason: Headache/Fever/Mild Pain (1-3) Last Admin: 05/03/19 14:56 Dose: 650 mg Acetaminophen (Tylenol) 650 mg AL Q4H PRN PRN Reason: Headache/Fever/Mild Pain (1-3) Acetazolamide (Diamox) 250 mg PO DAILY [facility] Last Admin: 05/07/19 09:25 Dose: 250 mg Albuterol/Ipratropium (Duoneb) 3 ml NEB Q2H PRN PRN Reason: SOB &/or Wheezing Allopurinol (Zyloprim) 100 mg PO BID [facility] Last Admin: 05/07/19 09:29 Dose: 100 mg Amoxicillin (Amoxil 250mg/5ml Oral Susp) 875 mg PO BID [facility] Stop: 05/09/19 09:01 Last Admin: 05/07/19 09:25 Dose: 875 mg Aspirin (Aspirin) 325 mg PO DAILY [facility] Last Admin: 05/07/19 09:26 Dose: 325 mg Cephalexin (Keflex) 500 mg PO BID [facility] Stop: 05/13/19 09:01 Last Admin: 05/07/19 09:26 Dose: 500 mg Docusate Sodium (Colace) 100 mg PO BID [facility] Last Admin: 05/07/19 09:27 Dose: 100 mg Enoxaparin Sodium (Lovenox) 40 mg SC 0900 [facility] Last Admin: 05/07/19 09:25 Dose: 40 mg Levothyroxine Sodium (Synthroid) 75 mcg PO 0600 [facility] Last Admin: 05/07/19 06:10 Dose: 75 mcg Lisinopril (Zestril) 2.5 mg PO BID [facility] Last Admin: 05/07/19 09:26 Dose: 2.5 mg Ondansetron HCl (Zofran Odt) 4 mg PO Q4H PRN PRN Reason: Nausea/Vomiting Last Admin: 05/03/19 21:02 Dose: 4 mg Pantoprazole Sodium (Protonix) 40 mg PO DAILY [facility] Last Admin: 05/07/19 09:26 Dose: 40 mg Polyethylene Glycol (Miralax) 17 gm PO DAILY [facility] Last Admin: 05/07/19 09:27 Dose: 17 gm Potassium Chloride (K-Dur) 20 meq PO BID [facility] Potassium Chloride (K-Dur) 20 meq PO ONE [facility] Stop: 05/08/19 08:01 Last Admin: 05/07/19 09:26 Dose: 2.5 mg Sodium Chloride (Flush - Normal Saline) 10 ml IVF PRN PRN PRN Reason: Saline Flush Last Admin: 05/03/19 08:51 Dose: 10 ml Spironolactone (Aldactone) 25 mg PO [facility] Last Admin: 05/07/19 09:27 Dose: 25 mg Vital Signs & Weight: Vital Signs Temp Pulse Resp BP Pulse Ox 05/07/19 13:20 65 135/68 05/07/19 11:35 98.1 F 60 26 H 87/52 L 94 L 05/07/19 09:26 68 05/07/19 07:55 95 05/07/19 07:52 98.6 F 68 18 138/72 94 L 05/07/19 04:00 99.4 F 67 18 143/65 H 93 L Admit Weight 215 lb 2.738 oz Weight 194 lb 10.691 oz - Physical Exam General: other (confused mildly) Cardiac: regular rate and rhythm, S1/S2 Lungs: decreased breath sounds Abdomen: unremarkable Skin: clear - Labs Result Diagrams: 05/06/19 03:56 05/07/19 11:23 Troponin/CKMB CK-MB (CK-2) 1.6 ng/mL (0-6.6) 04/26/19 16:30 Troponin I 0.098 ng/mL (< 0.028) H 04/26/19 22:42 - Telemetry Sinus rhythms and dysrhythmias: other (AV paced) - Assessment/Plan Assessment/Plan: 1. s/p syncopal episode and CHB with s/p BiV PM placement on 05/06/[address] Christian - AV paced; the PM site is GEOP[employer]ORAT[employer] DIRECTOR without any drainage, swelling and mild erythema 2. Acute on Chronis systolic HF with EF 20-25% - stable with RA; on spironolactone and lisinopril; will start Coreg 3.125mg BID for CHF and HTN management 3. CHB with s/p BiV PM on 05/06/2019 4. HTN - will start Coreg 3.125mg BID 5. Hypothyroidism 6. VRE in urine 7. Hx of Gout 8. dementia - plan to rx to SNF MAR reviewed * From Cardiac standpoint, the pt is stable to tx; * The pt will f/u with Dr Collins within 2-[address] Christian's office within 10 days for PM site check
[2019-05-07] MEDS ORDERED: Potassium Chloride 20 MEQ TAB PO SCH (13:45)
[2019-05-07] MEDS: Acetaminophen 325 MG TAB PO PRN (14:59)
[2019-05-07] MEDS: Carvedilol 3.125 MG TAB PO SCH (16:59)
[2019-05-07] MEDS ORDERED: Acetaminophen/Codeine 30-300mg Tablet PO PRN (19:15)
[2019-05-07] MEDS: Potassium Chloride 20 MEQ TAB PO SCH (21:17)
[2019-05-07] MEDS: Acetaminophen/Codeine 30-300mg Tablet PO PRN (21:22)
[2019-05-08] MEDS: Levothyroxine Sodium 100 MCG TAB PO SCH (05:17)
--- NOTE | 2019-05-08 05:45 | PDOC.FM ---
- Subjective Subjective: Pt sleeping comfortably. Overnight telemetry AV-paced and AV-sensed for the most part. Has nearly completed course of abx for VRE UTI. - Objective MAR Reviewed: Yes Vital Signs & Weight: Vital Signs (12 hours) Temp Pulse Resp BP BP Pulse Ox 05/08/19 04:00 97.9 F 64 16 115/58 L 94 L 05/07/19 21:17 61 128/62 05/07/19 21:10 98.7 F 61 18 128/62 98 Weight Admit Weight 97.6 kg Weight 85.7 kg I&O: 05/06/19 05/07/19 05/08/19 06:59 06:59 06:59 Intake Total 531 701 0316 Output Total 1140 760 300 Balance -183 169 6788 Result Diagrams: 05/06/19 03:56 05/07/19 11:23 Phys Exam - Physical Examination Constitutional: NAD no respiratory distress well perfused Gastrointestinal: no distention Dx/Plan (1) VRE (vancomycin-resistant Enterococci) infection Code(s): A49.1 - STREPTOCOCCAL INFECTION, UNSPECIFIED SITE; Z16.21 - RESISTANCE TO VANCOMYCIN Status: Acute (2) Hx of gout Code(s): Z87.39 - PERSONAL HISTORY OF DISEASES OF THE MS SYS AND CONN TISS Status: Chronic (3) HTN (hypertension) Code(s): I10 - ESSENTIAL (PRIMARY) HYPERTENSION Status: Acute (4) Hypothyroid Code(s): E03.9 - HYPOTHYROIDISM, UNSPECIFIED Status: Acute (5) Obesity Code(s): E66.9 - OBESITY, UNSPECIFIED Status: Acute (6) Osteoarthritis Code(s): M19.90 - UNSPECIFIED OSTEOARTHRITIS, UNSPECIFIED SITE Status: Acute - Plan Plan: 84 y/o black female w/ CHF exacerbation, complicated by UTI: CHF Exacerbation, improved Contraction alkalosis 2/2 diuresis, improved -Strict I&Os -Echo: EF 20-30%, Atrial Dilation -Fluid Restriction: 1500 ml -Cardiology consulted: appreciate recs. [facility]. Stable from cardiac standpoint for transfer. -EP Gino consulted: appreciate recs. Pacemaker placed 05/06. Abx of Keflex started per Cardiology and to continue for 7 days total. -Spironolactone and ACEi. Potassium sparing drugs yet pt continues to have hypokalemia. -Carvedilol started by cards. -Will continue lasix at home albeit at lower dose, and repeat BMP in 3-4 days at [facility] since pt is on potassium sparing agents. Hypokalemia, chronic - will recheck BMP once more today and up home potassium to 20mEq BId. Intermittent 2nd degree AV Block, Type 1 and Type 2 - Cardiology & EP consulted as above - Avoid beta-blockers Elevated Troponins, resolved -no chest pain VRE UTI -UCx: Vancomycin Resistant Enterococcus -s/p Ceftriaxone 1 gm IV -Currently on Amoxicillin 875mg BID for 1 more days -This infection is well treated so pt may not require isolation room and contact precautions when she returns to [facility]. Will ask CM to notify [facility] of this. OA GERD Gout Hypothyroidism HTN -Continue home medication regimen -Adjusted levothyroxine due to low TSH to 75 mcg daily. Continue to monitor as outpatient and adjust as needed. -Pt had home med of prednisone, likely a medication continued indefinitely after hospitalization. Have been weaning this. 2.5mg for 1 more days, then stop. Code: FULL MPOA: Rosa Hargrove - /Home: Diet: Heart Healthy, Low Sodium - Fluid Restriction 1.5 L. Supplementation w/ Mighty Shakes. DVT PPx: Lovenox 40 mg SC Activity: Ambulate w/ Assist Dispo: tele inpt. Likely d/c to [facility] Wednesday 05/09. [facility] is notoriously understaffed and not able to accept patients back on weekends safely. F/U w/ cardiology Dr. Collins in 2-[address] Christian in 10-14 days. Addendum - Attending - Attending Attestation Date/Time: 05/08/19 3881 I personally evaluated the patient and discussed the management with Dr. Cruz. I agree with the History, Examination, Assessment and Plan documented above with any addition or exceptions noted below. Patient doing well. Stable for discharge whenever her NH can take her tomorrow hopefully.
[2019-05-08] MEDS: Cephalexin 250 MG CAP PO SCH ×2 (08:36→21:11)
[2019-05-08] MEDS: AcetaZOLAMIDE 250 MG TAB PO SCH (08:37)
[2019-05-08] MEDS: Lisinopril 5 MG TAB PO SCH ×2 (08:37→21:11)
[2019-05-08] MEDS: Aspirin 325 MG TAB PO SCH (08:37)
[2019-05-08] MEDS: Allopurinol 100 MG TAB PO SCH ×2 (08:37→21:10)
[2019-05-08] MEDS: Carvedilol 3.125 MG TAB PO SCH ×2 (08:37→16:58)
[2019-05-08] MEDS: Spironolactone 25 MG TAB PO SCH (08:37)
[2019-05-08] MEDS: predniSONE 5 MG TAB PO SCH (08:37)
[2019-05-08] MEDS: Potassium Chloride 20 MEQ TAB PO SCH ×2 (08:37→21:11)
[2019-05-08] MEDS: Docusate 100 MG CAP PO SCH ×2 (08:38→21:11)
[2019-05-08] MEDS: Enoxaparin Sodium 40 MG/0.4 ML SYRINGE SC SCH (08:38)
[2019-05-08] MEDS: Polyethylene Glycol 3350 17 GM Packet PO SCH (08:38)
[2019-05-08 10:14] LABS: Anion Gap 14 mmol/L (10-20); BUN (Urea Nitrogen) 26 mg/dL (9.8-20.1); Calc. Creatinine Clearance 70 mL/min (70-130); Calcium 9.6 mg/dL (7.8-10.44); Carbon Dioxide 25 mmol/L (23-31); Chloride 98 mmol/L (98-107); Estimated GFR-MDRD 85; Glucose 121 mg/dL (83-110); Potassium 3.8 mmol/L (3.5-5.1); Sodium 133 mmol/L (136-145)
--- NOTE | 2019-05-08 15:17 | PDOC.CPN ---
- Subjective Date: 05/08/19 Time: 15:16 Interval history: The pt seen and examined. No overnight events. No cardiac complaints. She complains of weakness. - Objective Allergies/Adverse Reactions: Allergies Allergy/AdvReac Type Severity Reaction Status Date / Time No Known Drug Allergies Allergy Verified 04/26/19 20:45 Visit Medications: Current Medications Acetaminophen (Tylenol) 650 mg PO Q4H PRN PRN Reason: Headache/Fever/Mild Pain (1-3) Last Admin: 05/07/19 14:59 Dose: 650 mg Acetaminophen (Tylenol) 650 mg MS Q4H PRN PRN Reason: Headache/Fever/Mild Pain (1-3) Acetaminophen/Codeine Phosphate (Tylenol #3) 1 tab PO Q4H PRN PRN Reason: Mild Pain (1-3) Last Admin: 05/07/19 21:22 Dose: 1 tab Acetaminophen/Codeine Phosphate (Tylenol #3) 2 tab PO Q4H PRN PRN Reason: Moderate Pain (4-6) Acetazolamide (Diamox) 250 mg PO DAILY [facility] Last Admin: 05/08/19 08:37 Dose: 250 mg Albuterol/Ipratropium (Duoneb) 3 ml NEB Q2H PRN PRN Reason: SOB &/or Wheezing Allopurinol (Zyloprim) 100 mg PO BID [facility] Last Admin: 05/08/19 08:37 Dose: 100 mg Amoxicillin (Amoxil 250mg/5ml Oral Susp) 875 mg PO BID [facility] Stop: 05/09/19 09:01 Last Admin: 05/08/19 08:37 Dose: 875 mg Aspirin (Aspirin) 325 mg PO DAILY [facility] Last Admin: 05/08/19 08:37 Dose: 325 mg Carvedilol (Coreg) 3.125 mg PO BID-WM [facility] Last Admin: 05/08/19 08:37 Dose: 3.125 mg Cephalexin (Keflex) 500 mg PO BID [facility] Stop: 05/13/19 09:01 Last Admin: 05/08/19 08:36 Dose: 500 mg Docusate Sodium (Colace) 100 mg PO BID [facility] Last Admin: 05/08/19 08:38 Dose: 100 mg Enoxaparin Sodium (Lovenox) 40 mg SC 0900 [facility] Last Admin: 05/08/19 08:38 Dose: 40 mg Levothyroxine Sodium (Synthroid) 75 mcg PO 0600 [facility] Last Admin: 05/08/19 05:17 Dose: 75 mcg Lisinopril (Zestril) 2.5 mg PO BID [facility] Last Admin: 05/08/19 08:37 Dose: 2.5 mg Ondansetron HCl (Zofran Odt) 4 mg PO Q4H PRN PRN Reason: Nausea/Vomiting Last Admin: 05/03/19 21:02 Dose: 4 mg Pantoprazole Sodium (Protonix) 40 mg PO DAILY [facility] Last Admin: 05/08/19 08:37 Dose: 40 mg Polyethylene Glycol (Miralax) 17 gm PO DAILY [facility] Last Admin: 05/08/19 08:38 Dose: 17 gm Potassium Chloride (K-Dur) 20 meq PO BID [facility] Last Admin: 05/08/19 08:37 Dose: 20 meq Sodium Chloride (Flush - Normal Saline) 10 ml IVF PRN PRN PRN Reason: Saline Flush Last Admin: 05/03/19 08:51 Dose: 10 ml Spironolactone (Aldactone) 25 mg PO QAM-WM [facility] Last Admin: 05/08/19 08:37 Dose: 25 mg Vital Signs & Weight: Vital Signs Temp Pulse Resp BP Pulse Ox 05/08/19 12:12 97.8 F 60 18 115/54 L 98 05/08/19 08:37 65 96 05/08/19 07:35 97.8 F 65 14 131/56 L 96 05/08/19 04:00 97.9 F 64 16 115/58 L 94 L Admit Weight 215 lb 2.738 oz Weight 188 lb 14.978 oz - Physical Exam General: other (confused) Neck: supple neck Cardiac: regular rate and rhythm, S1/S2 Lungs: decreased breath sounds Musculoskeletal: decreased range of motion - Labs Result Diagrams: 05/06/19 03:56 05/08/19 09:50 Troponin/CKMB CK-MB (CK-2) 1.6 ng/mL (0-6.6) 04/26/19 16:30 Troponin I 0.098 ng/mL (< 0.028) H 04/26/19 22:42 - Telemetry Sinus rhythms and dysrhythmias: other (AV paced) - Assessment/Plan Assessment/Plan: 1. s/p syncopal episode and CHB with s/p BiV PM placement on 05/06/[address] Christian - AV paced; the PM site is VICKEY without any drainage, swelling and mild erythema 2. Acute on Chronis systolic HF with EF 20-25% - stable with RA; on spironolactone and lisinopril; will start Coreg 3.125mg BID for CHF and HTN management 3. CHB with s/p BiV PM on 05/06/2019 4. HTN - will start Coreg 3.125mg BID 5. Hypothyroidism 6. VRE in urine 7. Hx of Gout 8. dementia - plan to rx to SNF MAR reviewed * From Cardiac standpoint, the pt is stable to tx; * The pt will f/u with Dr Collins within 2-[address] Christian's office within 10 days for PM site check
[2019-05-08] MEDS: Acetaminophen/Codeine 30-300mg Tablet PO PRN (21:12)
[2019-05-09 05:14] LABS: Anion Gap 13 mmol/L (10-20); BUN (Urea Nitrogen) 33 mg/dL (9.8-20.1); Calc. Creatinine Clearance 67 mL/min (70-130); Calcium 8.8 mg/dL (7.8-10.44); Carbon Dioxide 23 mmol/L (23-31); Chloride 101 mmol/L (98-107); Estimated GFR-MDRD 81; Glucose 110 mg/dL (83-110); Potassium 4.8 mmol/L (3.5-5.1); Sodium 132 mmol/L (136-145)
[2019-05-09] MEDS: Levothyroxine Sodium 100 MCG TAB PO SCH (05:51)
--- NOTE | 2019-05-09 06:19 | PDOC.FM ---
- Subjective Subjective: pt resting comfortably. Denies pain. Remains V-paced overnight on telemetry. - Objective MAR Reviewed: Yes Vital Signs & Weight: Vital Signs (12 hours) Temp Pulse Resp BP BP Pulse Ox 05/09/19 04:15 97.8 F 60 20 137/62 98 05/08/19 23:45 60 108/55 L 05/08/19 21:11 60 108/54 L 05/08/19 21:00 99.0 F 60 18 108/54 L 94 L Weight Admit Weight 97.6 kg Weight 85.956 kg I&O: 05/07/19 05/08/19 05/09/19 06:59 06:59 06:59 Intake Total 980 1470 1260 Output Total 760 300 100 Balance 220 1170 1160 Result Diagrams: 05/06/19 03:56 05/09/19 03:44 Phys Exam - Physical Examination Constitutional: NAD Respiratory: no wheezing, clear to auscultation bilateral Cardiovascular: RRR, no significant murmur Musculoskeletal: no edema Dx/Plan (1) VRE (vancomycin-resistant Enterococci) infection Code(s): A49.1 - STREPTOCOCCAL INFECTION, UNSPECIFIED SITE; Z16.21 - RESISTANCE TO VANCOMYCIN Status: Acute (2) Hx of gout Code(s): Z87.39 - PERSONAL HISTORY OF DISEASES OF THE MS SYS AND CONN TISS Status: Chronic (3) HTN (hypertension) Code(s): I10 - ESSENTIAL (PRIMARY) HYPERTENSION Status: Acute (4) Hypothyroid Code(s): E03.9 - HYPOTHYROIDISM, UNSPECIFIED Status: Acute (5) Obesity Code(s): E66.9 - OBESITY, UNSPECIFIED Status: Acute (6) Osteoarthritis Code(s): M19.90 - UNSPECIFIED OSTEOARTHRITIS, UNSPECIFIED SITE Status: Acute - Plan Plan: 84 y/o black female w/ CHF exacerbation, complicated by UTI: CHF Exacerbation, improved Contraction alkalosis 2/2 diuresis, improved -Strict I&Os -Echo: EF 20-30%, Atrial Dilation -Fluid Restriction: 1500 ml -Cardiology consulted: appreciate recs. [facility]. Stable from cardiac standpoint for transfer. -EP Gino consulted: appreciate recs. Pacemaker placed 05/06. Abx of Keflex started per Cardiology and to continue for 7 days total. Send w/ Rx of 4 days. -Spironolactone and ACEi. Potassium sparing drugs yet pt continues to have hypokalemia. -Carvedilol started by cards. -Will continue lasix at home albeit at lower dose, and repeat BMP in 3-4 days [facility] since pt is on potassium sparing agents. Hypokalemia, chronic - will recheck BMP once more today and up home potassium to 20mEq BId. 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 Last dose this AM. -This infection is well treated so pt may not require isolation room and contact precautions when she returns to jail. Will ask CM to notify jail of this. OA GERD Gout Hypothyroidism HTN -Continue home medication regimen -Adjusted levothyroxine due to low TSH to 75 mcg daily. Continue to monitor as outpatient and adjust as needed. -Discontinue prednisone. Completed taper inpatient. Code: FULL MPOA: Rosa Hargrove - /Home: Diet: Heart Healthy, Low Sodium - Fluid Restriction 1.5 L. Supplementation w/ Mighty Shakes. DVT PPx: Lovenox 40 mg SC Activity: Ambulate w/ Assist Dispo: tele inpt. D/C to jail Wednesday 05/09. F/U w/ cardiology Dr. Collins in 2-[address] Christian in 10-14 days. Addendum - Attending - Attending Attestation Date/Time: 05/09/19 1100 I personally evaluated the patient and discussed the management with Dr. Cruz. I agree with the History, Examination, Assessment and Plan documented above with any addition or exceptions noted below. Stable for discharge back to [place] today. Outpatient cardiology follow up as directed.
[2019-05-09] MEDS: AcetaZOLAMIDE 250 MG TAB PO SCH (09:19)
[2019-05-09] MEDS: Carvedilol 3.125 MG TAB PO SCH ×2 (09:19→17:41)
[2019-05-09] MEDS: Docusate 100 MG CAP PO SCH (09:19)
[2019-05-09] MEDS: Spironolactone 25 MG TAB PO SCH (09:19)
[2019-05-09] MEDS: Aspirin 325 MG TAB PO SCH (09:20)
[2019-05-09] MEDS: Lisinopril 5 MG TAB PO SCH (09:20)
[2019-05-09] MEDS: Cephalexin 250 MG CAP PO SCH (09:21)
[2019-05-09] MEDS: Allopurinol 100 MG TAB PO SCH (09:21)
[2019-05-09] MEDS: Potassium Chloride 20 MEQ TAB PO SCH (09:21)
[2019-05-09] MEDS: Enoxaparin Sodium 40 MG/0.4 ML SYRINGE SC SCH (09:21)
[2019-05-09] MEDS: Polyethylene Glycol 3350 17 GM Packet PO SCH (09:22)
--- NOTE | 2019-05-09 10:42 | PDOC.CPN ---
- Subjective Date: 05/09/19 Time: 10:45 Interval history: The pt seen and examined. No overnight events. No cardiac complaints. - Objective Allergies/Adverse Reactions: Allergies Allergy/AdvReac Type Severity Reaction Status Date / Time No Known Drug Allergies Allergy Verified 04/26/19 20:45 Visit Medications: Current Medications Acetaminophen (Tylenol) 650 mg PO Q4H PRN PRN Reason: Headache/Fever/Mild Pain (1-3) Last Admin: 05/07/19 14:59 Dose: 650 mg Acetaminophen (Tylenol) 650 mg AR Q4H PRN PRN Reason: Headache/Fever/Mild Pain (1-3) Acetaminophen/Codeine Phosphate (Tylenol #3) 1 tab PO Q4H PRN PRN Reason: Mild Pain (1-3) Last Admin: 05/08/19 21:12 Dose: 1 tab Acetaminophen/Codeine Phosphate (Tylenol #3) 2 tab PO Q4H PRN PRN Reason: Moderate Pain (4-6) Acetazolamide (Diamox) 250 mg PO DAILY [facility] Last Admin: 05/09/19 09:19 Dose: 250 mg Albuterol/Ipratropium (Duoneb) 3 ml NEB Q2H PRN PRN Reason: SOB &/or Wheezing Allopurinol (Zyloprim) 100 mg PO BID [facility] Last Admin: 05/09/19 09:21 Dose: 100 mg Aspirin (Aspirin) 325 mg PO DAILY [facility] Last Admin: 05/09/19 09:20 Dose: 325 mg Carvedilol (Coreg) 3.125 mg PO BID[facility] Last Admin: 05/09/19 09:19 Dose: 3.125 mg Cephalexin (Keflex) 500 mg PO BID [facility] Stop: 05/13/19 09:01 Last Admin: 05/09/19 09:21 Dose: 500 mg Docusate Sodium (Colace) 100 mg PO BID [facility] Last Admin: 05/09/19 09:19 Dose: 100 mg Enoxaparin Sodium (Lovenox) 40 mg SC 0900 [facility] Last Admin: 05/09/19 09:21 Dose: 40 mg Levothyroxine Sodium (Synthroid) 75 mcg PO 0600 [facility] Last Admin: 05/09/19 05:51 Dose: 75 mcg Lisinopril (Zestril) 2.5 mg PO BID [facility] Last Admin: 05/09/19 09:20 Dose: 2.5 mg Ondansetron HCl (Zofran Odt) 4 mg PO Q4H PRN PRN Reason: Nausea/Vomiting Last Admin: 05/03/19 21:02 Dose: 4 mg Pantoprazole Sodium (Protonix) 40 mg PO DAILY [facility] Last Admin: 05/09/19 09:20 Dose: 40 mg Polyethylene Glycol (Miralax) 17 gm PO DAILY [facility] Last Admin: 05/09/19 09:22 Dose: 17 gm Potassium Chloride (K-Dur) 20 meq PO BID [facility] Last Admin: 05/09/19 09:21 Dose: 20 meq Sodium Chloride (Flush - Normal Saline) 10 ml IVF PRN PRN PRN Reason: Saline Flush Last Admin: 05/03/19 08:51 Dose: 10 ml Spironolactone (Aldactone) 25 mg PO QAM-WM [facility] Last Admin: 05/09/19 09:19 Dose: 25 mg Vital Signs & Weight: Vital Signs Temp Pulse Resp BP Pulse Ox 05/09/19 09:19 98 05/09/19 07:50 97.5 F L 61 20 109/48 L 98 05/09/19 04:15 97.8 F 60 20 137/62 98 05/08/19 23:45 60 108/55 L Admit Weight 215 lb 2.738 oz Weight 189 lb 8 oz - Physical Exam General: other (confused) HEENT: mucus membranes moist Neck: supple neck Cardiac: regular rate and rhythm, S1/S2 Lungs: clear to auscultation, decreased breath sounds Skin: clear - Labs Result Diagrams: 05/06/19 03:56 05/09/19 03:44 Troponin/CKMB CK-MB (CK-2) 1.6 ng/mL (0-6.6) 04/26/19 16:30 Troponin I 0.098 ng/mL (< 0.028) H 04/26/19 22:42 - Telemetry Sinus rhythms and dysrhythmias: other (AV paced) - Assessment/Plan Assessment/Plan: 1. s/p syncopal episode and CHB with s/p BiV PM placement on 05/06/[address] Christian - AV paced; the PM site is [employer]SP[employer] STUFFER without any drainage, swelling and mild erythema 2. Acute on Chronis systolic HF with EF 20-25% - stable with RA; on spironolactone, coreg 3.125mg BID, and lisinopril 2.5mgwhich will be decreased from BID to qd; 3. CHB with s/p BiV PM on 05/06/2019 4. HTN - will decrease Lisinopril 2.5mg from BID to qd 5. Hypothyroidism 6. VRE in urine 7. Hx of Gout 8. dementia - plan to rx to SNF MAR reviewed * From Cardiac standpoint, the pt is stable to tx to SNF; * The pt will f/u with Dr Collins within 2-[address] Christian's office within 10 days for PM site check
--- NOTE | 2019-05-09 11:13 | PRG ---
DATE OF SERVICE: 05/09/2019 SUBJECTIVE: Ms. Blum seems doing well over the weekend after her Bi-V pacemaker implantation on 05/06/2019. OBJECTIVE DATA: VITAL SIGNS: Blood pressure is 109/48, heart rate 61, respirations 20, and temperature 97.5 degrees Fahrenheit. GENERAL: Alert and oriented woman, no apparent distress. NECK: Supple. Jugular veins not distended. CHEST: Coarse. No crackles. HEART: Sounds are regular to rate and rhythm. No murmur or gallop. ABDOMEN: Benign. Bowel sounds positive. EXTREMITIES: Lower extremities without edema, clubbing, or cyanosis. DATABASE: Chest x-ray is pending. The pacemaker interrogation from 05/06/2019 revealed a functioning Medtronic Bi-V pacemaker battery longevity end of being of life. Lead parameters are 532 ohms in the RA and RV, 437 in the LV, capture threshold in the LV is 1.125 V at 0.4 milliseconds and in the atrium and RV 0.37 V at 0.4 milliseconds. Sensing is 2.1 and 18 mV respectively. Conclusion is functioning biventricular pacemaker one day post implant. ASSESSMENT AND PLAN: Ms. Blum is an 84-year-old woman, who has a history of cardiomyopathy and dementia, who had a baseline left bundle-branch block, admitted with congestive heart failure exacerbation. Also demonstrated episodic complete AV block with likely progression of her conduction disease. She underwent a biventricular pacemaker implantation on the , recovered well. No complications noted, would perform an x-ray before discharge and the pacemaker interrogation has been adequate. The pacemaker is also functioning good on telemetry currently. Routine monitoring is advised. Two-week wound check is requested. Also, she is advised to go home for at least a week of antibiotic, cephalexin 500 mg p.o. b.i.d. is the current dose. Job ID: [id number]
[2019-05-09 12:36] LABS: Anion Gap 9 mmol/L (10-20); BUN (Urea Nitrogen) 34 mg/dL (9.8-20.1); Calc. Creatinine Clearance 55 mL/min (70-130); Carbon Dioxide 28 mmol/L (23-31); Chloride 98 mmol/L (98-107); Estimated GFR-MDRD 64; Glucose 143 mg/dL (83-110); Potassium 3.9 mmol/L (3.5-5.1); Sodium 131 mmol/L (136-145)
--- NOTE | 2019-05-09 16:05 | RAD ---
PORTABLE CHEST: Date: 05/09/19 HISTORY: Post pacemaker placement. COMPARISON: 04/26/19. FINDINGS: Heart size enlarged. Pacemaker in place. No signs of pneumothorax. Vascular calcifications are seen. IMPRESSION: Interval placement of a pacemaker. No signs of a pneumothorax. POS: BRENDA
[2019-05-09 16:31] VITALS: BP 102/39; TEMP 98.3
[2019-05-10] MEDS ORDERED: Lisinopril 2.5 MG TAB PO SCH (09:00)
== END 2019-05-09 17:15 | DRG 243 ==
LOC: ERS 15:39 → 2NO 17:13 → OBSVTOIN 04-27 10:55
PROVIDERS: ADMIT Family Medicine; ATTEND Family Medicine
PROC: 0JH607Z Insertion of Cardiac Resynchronization Pacemaker Pulse Generator into Chest Subcutaneous Tissue and Fascia, Open Approach (ICD-10-PCS; principal; 2019-05-06)
PROC: 02H63JZ Insertion of Pacemaker Lead into Right Atrium, Percutaneous Approach (ICD-10-PCS; 2019-05-06)
PROC: 02HK3JZ Insertion of Pacemaker Lead into Right Ventricle, Percutaneous Approach (ICD-10-PCS; 2019-05-06)
PROC: 02HL3JZ Insertion of Pacemaker Lead into Left Ventricle, Percutaneous Approach (ICD-10-PCS; 2019-05-06)
DX: I11.0 Hypertensive heart disease with heart failure (principal); Z16.21 Resistance to vancomycin; E87.3 Alkalosis; I44.2 Atrioventricular block, complete; F03.90 Unspecified dementia, unspecified severity, without behavioral disturbance, psychotic disturbance, mood disturbance, and anxiety; N30.90 Cystitis, unspecified without hematuria; I50.23 Acute on chronic systolic (congestive) heart failure; E03.9 Hypothyroidism, unspecified; M10.9 Gout, unspecified; I44.7 Left bundle-branch block, unspecified; I44.1 Atrioventricular block, second degree; E87.6 Hypokalemia; I44.0 Atrioventricular block, first degree; E66.9 Obesity, unspecified; M19.90 Unspecified osteoarthritis, unspecified site; K21.9 Gastro-esophageal reflux disease without esophagitis; B95.2 Enterococcus as the cause of diseases classified elsewhere; Z91.19 Patient's noncompliance with other medical treatment and regimen; Z68.31 Body mass index [BMI] 31.0-31.9, adult; Z79.82 Long term (current) use of aspirin; Z79.890 Hormone replacement therapy; Z79.52 Long term (current) use of systemic steroids; Z79.51 Long term (current) use of inhaled steroids; Z79.899 Other long term (current) drug therapy; I42.9 Cardiomyopathy, unspecified; E87.5 Hyperkalemia
CPT/HCPCS: 33208; 33224; 36005; 36415; 36416; 71045; 75820; 80048; 80053; 82553; 83735; 83880; 84100; 84439; 84443; 85025; 87077; 87086; 87186; 93005; 93306; 93798; 94640; C1882; C1898; C1900; J0690; J0696; J1650; J1940; J2001; J2250; J3010; J3480; J3490; J7512; J7620; Q0162

== ENCOUNTER 2019-07-14 14:01 | Inpatient (IN) | payer MEDICARE, MEDICAID ==
[2019-07-14] MEDS ORDERED: Cefepime 2 GM VIAL ONE (15:07)
[2019-07-14 15:08] LABS: #Basophils 0.1 thou/uL (0.0-0.2); #Eosinphils 0.1 thou/uL (0.0-0.7); #Lymphocytes 1.8 thou/uL (1.20-3.40); #Monocytes 0.6 thou/uL (0.11-0.59); #Neutrophils 7.1 thou/uL (1.40-6.50); %Basophils 1.2 % (0.0-1.0); %Eosinophils 1.2 % (0.0-10.0); %Lymphocytes 18.2 % (21.0-51.0); %Monocytes 5.8 % (0.0-10.0); %Neutrophils 73.6 % (42.0-75.0); Hemoglobin 13.2 g/dL (12.0-16.0); Mean Corpuscular HGB CONC 31.7 g/dL (32.0-36.0); Mean Corpuscular Hemoglobin 31.3 pg (27.0-31.0); Mean Corpuscular Volume 98.7 fL (78.0-98.0); Mean Platelet Volume 9.9 fL (7.4-10.4); Platelet Count 290 thou/uL (130-400); RBC Distribution Width 15.5 % (11.5-14.5); Red Blood Cell (RBC) Count 4.23 mill/uL (4.20-5.40); White Blood Cell (WBC) Count 9.6 thou/uL (4.8-10.8)
--- NOTE | 2019-07-14 15:16 | RAD ---
Chest AP view INDICATION: Drainage from pacemaker site COMPARISON: May 09, 2019 FINDINGS: Lungs:The lungs are clear Cardiac silhouette:Stable mild cardiomegaly and vascular calcifications of the thoracic aorta Pulmonary vasculature:Normal Pleural spaces:No pleural effusion or pneumothorax is demonstrated. Upper abdomen:No abnormality seen. Osseous structures: No acute osseous abnormality. Additional findings:Multilead pacemaker is not appreciably changed from the comparison study. IMPRESSION: Stable cardiomegaly.
[2019-07-14 15:31] LABS: ALT (SGPT) Less than 7 U/L (8-55); AST (SGOT) 12 U/L (5-34); Albumin 3.3 g/dL (3.4-4.8); Alkaline Phosphatase 90 U/L (40-110); Anion Gap 13 mmol/L (10-20); BUN (Urea Nitrogen) 20 mg/dL (9.8-20.1); Bilirubin, Total 0.5 mg/dL (0.2-1.2); Calc. Creatinine Clearance 0 mL/min (70-130); Calcium 9.5 mg/dL (7.8-10.44); Carbon Dioxide 23 mmol/L (23-31); Chloride 104 mmol/L (98-107); Estimated GFR-MDRD 51; Globulin 3.7 g/dL (2.4-3.5); Glucose 93 mg/dL (83-110); Potassium 4.2 mmol/L (3.5-5.1); Sodium 136 mmol/L (136-145)
[2019-07-14] MEDS ORDERED: Vancomycin 1.5 GRAM/300 ML BAG 1.5 GM in Premix Bag 1 BAG IVPB SCH (16:15)
[2019-07-14] MEDS ORDERED: Acetaminophen 325 MG TAB ONE (17:39)
--- NOTE | 2019-07-14 21:55 | HP ---
CHIEF COMPLAINT: Infected pacemaker site. HISTORY OF PRESENT ILLNESS: This patient is an 84-year-old female who was admitted to this facility in April with decompensated systolic congestive heart failure. At that time, the patient had echocardiogram revealing an ejection fraction of 20% to 25%. 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 She had evidence of first and second-degree AV block. EP was consulted and ultimately the patient did undergo a biventricular pacer. However, she did not receive a defibrillator per the family's discussion. The patient was subsequently discharged on Keflex. The best I can understand from the information available to the ER is the patient subsequently did have some evidence of infection. She received another round of Keflex. After that with persistent infection, she had some other type of antibiotic, but was returned to the emergency department today, because her pacemaker site continue to appear infected and oozing. The patient reports that the area is a bit sore, but she has underlying dementia and is unable to give us any significant additional history related to this particular problem. Apparently, the patient did have an episode of vomiting today per the ER notes and has not eaten otherwise. In the emergency department, the patient has received a dose of vancomycin and cefepime as well as Tylenol and 500 mL of fluid. The patient is unable to give additional history herself and the past history for this patient has been obtained from the medical record. REVIEW OF SYSTEMS: Not possible given the patient's underlying dementia. PAST MEDICAL HISTORY: Notable for dementia, congestive heart failure with the above-mentioned ejection fraction of 20% to 25% and intermittent 1st and 2nd AV block, history of gout, hypothyroidism, hypertension. PAST SURGICAL HISTORY: Pacemaker placement. FAMILY HISTORY: Unknown. SOCIAL HISTORY: No alcohol, tobacco, or drugs. She lives in a half-way. Her niece, Rosa Mcgovern is her medical power of dental detail representative. I attempted to contact Ms. Mcgovern based on the phone number and the record and it is a disconnected number. ALLERGIES: NONE. CURRENT MEDICATIONS: 1. Allopurinol 100 mg b.i.d. 2. Aspirin 81 mg daily. 3. Docusate 100 mg b.i.d. 4. Lasix 40 mg b.i.d. 5. DuoNebs p.r.n. 6. Levothyroxine 100 mcg daily. 7. MiraLAX 17 g p.o. daily. 8. Omeprazole 40 mg daily. 9. Zofran ODT p.r.n. 10. Potassium chloride 10 mEq b.i.d. 11. Prednisone 10 mg daily. 12. Tylenol 325 mg p.r.n. PHYSICAL EXAMINATION: VITAL SIGNS: Latest vitals BP 139/60, pulse 60, respirations 18, temperature is 98.2, O2 saturations 98% on room air. GENERAL APPEARANCE: Age-appropriate female, in no distress. She is awake and alert, pleasant, cooperative. She does have some baseline confusion. HEENT: Pupils equal, round, reactive to light. No OP lesions. NECK: Supple and symmetric. HEART: Regular rate and rhythm without murmurs, gallops, or rubs. The left upper chest pacemaker site has an area that appears to be scabbed, but is oozing somewhat and this area was slightly disrupted, it was dislodged and with removal of that there appeared to be a cast of a fistulous tract down to the pacemaker that appears to be some blood and pus. There is no significant halo of erythema and there appears to be almost an epithelialized fistulous tract down to the pacemaker site. LUNGS: Clear to auscultation bilaterally. No wheezes or rales. ABDOMEN: Soft, nontender, and nondistended. EXTREMITIES: No cyanosis, clubbing, or edema. PSYCHIATRIC: The patient is pleasant cooperative. She is baseline confused. NEUROLOGIC: Patient appears to move 4 extremities spontaneously. Cranial nerves appear to be generally intact with no focal deficits. LABORATORY DATA: White count 9.6, hemoglobin 13.2, platelets 290. Sodium 136, potassium 4.2, chloride 104, CO2 23, BUN 20, creatinine 1.21, lactic acid 1.3. LFTs normal. Albumin 3.3. Chest x-ray shows stable cardiomegaly. IMPRESSION AND PLAN: 1. Infected pacemaker. The patient has received vancomycin and cefepime in the emergency department. We will continue those. I have discussed the case with CHINA Blackwood with the electrophysiology team. We will keep her n.p.o. after midnight. Obtain a pacemaker printout. It appears as though she is probably not fully reliant on the pacemaker and therefore it may simply need to be fully removed. We will defer that to the electrophysiology team. 2. Mild acute kidney injury. Patient's glomerular filtration rate typically is consistent with chronic kidney disease stage 2, stage II. Currently, her glomerular filtration rate is down to 51, representing apparent mild acute kidney injury. The patient appears to be slightly on the dry side. She is on the diuretic. She did have some vomiting, has not eaten today. She did receive 500 mL of fluid in the emergency department. Given her ejection fraction, we will not aggressively hydrate her further and will reassess her numbers in the morning. 3. Hypothyroidism. We will continue her usual home medications. 4. History of gastroesophageal reflux disease. Continue proton pump inhibitor. 5. Chronic steroid use, unclear etiology, looks like she probably has some gout and maybe is on steroids for that. Certainly, increases risk for infection; however not knowing the chronicity of that, we will go ahead and keep her on low-dose prednisone. 6. History of cardiomyopathy with reduced ejection fraction, appears to be a bit on the dry side with no evidence of a decompensated failure. 7. Disposition. The patient is going to be placed in observation until she is evaluated by the EP team. I again attempted to reach the patient's next of kin , but the number we have is a nonworking number. We will try to find additional resources tomorrow. Job ID: [id number] [id number]
[2019-07-15 06:13] LABS: #Basophils 0.1 thou/uL (0.0-0.2); #Eosinphils 0.2 thou/uL (0.0-0.7); #Lymphocytes 1.9 thou/uL (1.20-3.40); #Monocytes 0.7 thou/uL (0.11-0.59); #Neutrophils 5.3 thou/uL (1.40-6.50); %Basophils 1.4 % (0.0-1.0); %Eosinophils 1.9 % (0.0-10.0); %Lymphocytes 23.8 % (21.0-51.0); %Monocytes 8.3 % (0.0-10.0); %Neutrophils 64.7 % (42.0-75.0); Mean Corpuscular HGB CONC 30.6 g/dL (32.0-36.0); Mean Corpuscular Hemoglobin 31.1 pg (27.0-31.0); Mean Platelet Volume 8.9 fL (7.4-10.4); Platelet Count 209 thou/uL (130-400); RBC Distribution Width 15.4 % (11.5-14.5); Red Blood Cell (RBC) Count 3.85 mill/uL (4.20-5.40); White Blood Cell (WBC) Count 8.1 thou/uL (4.8-10.8)
[2019-07-15 06:32] LABS: Anion Gap 11 mmol/L (10-20); BUN (Urea Nitrogen) 21 mg/dL (9.8-20.1); Calc. Creatinine Clearance 50 mL/min (70-130); Carbon Dioxide 20 mmol/L (23-31); Chloride 108 mmol/L (98-107); Estimated GFR-MDRD 62; Glucose 91 mg/dL (83-110); Potassium 3.9 mmol/L (3.5-5.1); Sodium 135 mmol/L (136-145)
[2019-07-15] MEDS: Allopurinol 100 MG TAB PO SCH ×2 (09:40→19:54)
[2019-07-15] MEDS: Carvedilol 3.125 MG TAB PO SCH ×2 (09:41→16:21)
[2019-07-15] MEDS: Lisinopril 2.5 MG TAB PO SCH ×2 (09:41→19:54)
[2019-07-15] MEDS: Aspirin Chewable 81 MG TAB PO SCH (09:41)
[2019-07-15] MEDS ORDERED: CEFAZOLIN 1 GM VIAL ONE (10:40)
[2019-07-15] MEDS ORDERED: Gentamicin 80 MG/2 ML VIAL ONE (10:40)
--- NOTE | 2019-07-15 11:05 | CON ---
DATE OF CONSULTATION: REASON FOR CONSULTATION: Ms. Blum is a pleasant 84-year-old lady at [facility] from a [facility], who comes in today because of drainage from the pacemaker site. HISTORY OF PRESENT ILLNESS: Letha Blum is an 84-year-old lady who has a history of bradycardia and congestive heart failure. Full records are not easily available. Nevertheless, she was felt to be symptomatic and ultimately underwent placement of a resynchronization pacemaker back in April 2019. The notes are sparse, but suggest that she has had an incisional infection since implant. Finally, the site opened. There is active dehiscence of the wound and the pacemaker pulse generator can be visibly observed. She is admitted for pacemaker pocket infection. The patient is unable to provide much history. She has not had any syncope. She does not report feeling badly. She does not report any pain or discomfort. CURRENT MEDICATIONS: Reviewed. She is not on any active beta-blockade, calcium channel blockers, or other AV elida slowing medications. REVIEW OF SYSTEMS: She is not able to provide a system review. PHYSICAL EXAMINATION: GENERAL: On examination, she is a well-developed, well-nourished lady, in no acute distress. VITAL SIGNS: Her blood pressure has been in 120/80 range, heart rate is around 60 beats per minute, respirations are 12 to 13 and nonlabored. NECK: Supple. CHEST: Clear. Respiratory effort is normal. Pacemaker is located in the left infraclavicular fossa on the medial aspect of the incision site. It is actively open with evidence of purulence. HEART: Otherwise, has a regular rate. ABDOMEN: Soft and benign. EXTREMITIES: Warm and well perfused without clubbing, cyanosis, or edema. LABORATORY DATA: EKG demonstrates underlying atrial arrhythmia with paced ventricular response. Pacemaker interrogation is done by me today. It demonstrates a Medtronic resynchronization pacemaker. The underlying rhythm appears to be irregular and bradycardic heart rates between 35 and 53 beats per minute over an extended i.e. 2 minutes period of time and inhibition of pacing does not result in any perception of the patient of either shortness of breath, chest discomfort, or feeling poorly in anyway. Underlying rhythm appears to be in organized atrial flutter. Leads are noted to be implanted in April 2019. IMPRESSION: 1. Pacemaker site infection. 2. Bradycardia on the basis of AV block in the setting of an atrial arrhythmia. RECOMMENDATIONS: Pacer site is clearly infected at the present time with active purulence. Only option for treatment is going to be removal of the permanent pacemaker. She is bradycardic underneath her device, but appears to be hemodynamically stable. However, it is fairly remarkably bradycardic. We will have to obtain old records to see if she had any high risk feature such as syncope before. My recommendations would be to remove the permanent pacemaker. We may need to place a temporary. We will place a temporary. We will try to place it through the same vein in the shoulder region and connect to an externalized device with anticipate local care of the pocket site for couple of days and perhaps early part of the next week, she will be reimplanted. Whether or not resynchronization is used from the contralateral side will depend on whether she was failed to respond and the difficulty in placing coronary sinus leads. I have discussed the plan of care with the patient, however, I am not sure if she is able to completely understand the situation. The good news is that with a relatively huge implant, I do not think there is a significant risk of the explantation of the procedure, but she will require ultimately reimplantation. We will try to obtain consent and do that today if at all possible. Job ID: [id number]
--- NOTE | 2019-07-15 13:24 | OP ---
DATE OF PROCEDURE: 07/15/2019 PROCEDURE PERFORMED: Resynchronization pacemaker removal. INDICATION: Pacemaker pocket infection. COMPLICATIONS: None. ESTIMATED BLOOD LOSS: Less than 10 mL. DESCRIPTION OF PROCEDURE: After informed consent was obtained, the patient was brought to the electrophysiology laboratory. The patient was prepped and draped in the usual sterile fashion. Upon visual inspection, there was an erosion of the dehiscence of the incision line on the medial aspect and the device can clearly be seen. There was some element of purulence seen in the pocket region. Using lidocaine, the skin overlying the left infraclavicular fossa was locally anesthetized. The pacemaker was interrogated and its pacing rate was dropped to 30 beats per minute where the patient had intrinsic conduction. Blood pressure measurements were taken sequentially before the case and throughout the case demonstrating no evidence of hemodynamic compromise despite bradycardia. Notably, the initial indication for the device was for heart failure with left bundle-branch block pattern. The patient was known to have evidence of bradycardia and occasional pauses, but has never had an episode of syncope. As of 2 months ago, she did not have a pacemaker and at that time, she was not on inotropic medications. Once anesthetized, a skin incision was made along the previous scar laterally just enough to open the pocket for removal of the pacemaker pulse generator. The pacemaker pulse generator was detached from its suture tie and removed from the pocket. The suture tie was removed in its entirety. The leads were freed up to the sewed ring and the sewing rings were disconnected from their ties and removed. Each lead was then disconnected from the pacemaker pulse generator and with counterclockwise torqued on each lead and traction applied, each lead was pulled out of the body without difficulty and hemostasis was achieved. The pocket was then copiously irrigated with antibiotic solution and then a series of debridement was performed by taking dry 4x4s and roughly debriding the inside of the pocket area to remove any thrombus and tissue detritus was freely removable. The pocket was irrigated. This was repeated, then irrigated again. The pocket was observed. Because of the long-term infection, there was some oozing from various sites in the pocket. The major areas were cauterized and no excessive bleeding was seen. The pocket was then re-irrigated and then finally packed with iodoform gauze. A wet-to-dry dressing was placed over the site with some pressure to try to maintain tamponade on any of the oozing sites. FINDINGS: The device removed is a Medtronic [id number], serial #[id number] from 05/06/2019. The pacemaker lead is a 5076-45, serial #[id number] from 05/06/2019. The ventricular lead is a 5076-52, serial #[id number] also from 05/06/2019, and the LV lead is a 4298-78, serial #[id number] also from 05/06/2019. IMPRESSION: Successful multichamber pacemaker pulse generator and lead removal due to acute pocket infection. Successful packing with iodoform gauze of the device pocket. RECOMMENDATIONS: Although the patient has bradycardia, the blood pressure does appear to be quite stable and the ventricular responses are somewhat irregular, average rate in the low to mid 40s. Blood pressure generally has been in the 125/50 to 100/76 range throughout the entire case. We will recommend use of atropine 0.5 mg IV push q.8 hours if symptoms associated with any bradyarrhythmias due to the patient's left ventricular systolic dysfunction last measured in the 25% range and alternative could be some low dose dobutamine or dopamine if necessary for heart rate control if symptomatic on the bradycardic side. Notably the patient has never had an episode of syncope and blood pressure has been stable with her bradycardia throughout the case. Finally, reimplantation of a new device can be made from the contralateral side, probably the first part of the next week. The pacemaker pocket itself after daily dressing changes and repacking with iodoform gauze may be dealt with by re-apposing the skin margins with interrupted mattress sutures where drainage could still occur, but allowing the pocket to heal faster than by secondary intention. This could be done at the time of her new device implantation if desired. Job ID: [id number]
--- NOTE | 2019-07-15 14:19 | PDOC.HOSPP ---
- Subjective Subjective: Going for pacemaker removal today. Pocket infection. ID consult requested. - Objective Vital Signs & Weight: Vital Signs (12 hours) Temp Pulse Resp BP Pulse Ox 07/15/19 09:41 60 07/15/19 08:00 97.8 F 60 16 123/57 L 93 L 07/15/19 04:00 97.6 F 60 18 141/63 H 96 Weight Weight 176 lb 11.2 oz Result Diagrams: 07/15/19 05:55 07/15/19 05:55 Radiology Reviewed by me: Yes Hospitalist ROS - Review of Systems All other systems reviewed; all pertinent +/- noted in HPI/Subj - Medication Medications: Active Medications Generic Name Dose Route Start Last Admin Trade Name Freq PRN Reason Stop Dose Admin Allopurinol 100 mg 07/15/19 09:00 07/15/19 09:40 Zyloprim PO 100 mg BID LAKESHA Administration Aspirin 81 mg 07/15/19 09:00 07/15/19 09:41 Aspirin Chewable PO 81 mg DAILY LAKESHA Administration Carvedilol 3.125 mg 07/15/19 08:00 07/15/19 09:41 Coreg PO 3.125 mg BID-WM LAKESHA Administration Lisinopril 2.5 mg 07/15/19 09:00 07/15/19 09:41 Zestril PO 2.5 mg BID LAKESHA Administration Sodium Chloride 10 ml 07/15/19 09:00 07/15/19 09:41 Flush - Normal Saline IVF 10 ml Q12HR LAKESHA Administration - Exam General Appearance: NAD Eye: anicteric sclera ENT: normocephalic atraumatic, moist mucosa Neck: symmetric, no lymphadenopathy Heart: no murmur, no gallops, no rubs Respiratory: CTAB, no wheezes, no rales, no ronchi Gastrointestinal: soft, non-tender, no guarding, no rigidity Extremities: no edema Skin: no rashes Skin - other findings: Pacemaker with bandage Neurological: cranial nerve grossly intact, no focal deficits Musculoskeletal: generalized weakness Hosp A/P (1) Pacemaker infection Code(s): T82.7XXA - INFECT/INFLM REACT D/T OTH CARDI/VASC DEV/IMPLNT/GRFT, INIT Status: Acute (2) Pacemaker complications Code(s): T82.9XXA - UNSP COMP OF CARDIAC AND VASCULAR PROSTH DEV/GRFT, INIT Status: Acute (3) HTN (hypertension) Code(s): I10 - ESSENTIAL (PRIMARY) HYPERTENSION Status: Acute (4) Hypothyroid Code(s): E03.9 - HYPOTHYROIDISM, UNSPECIFIED Status: Acute (5) Mobitz II Code(s): I44.1 - ATRIOVENTRICULAR BLOCK, SECOND DEGREE Status: Acute (6) Obesity Code(s): E66.9 - OBESITY, UNSPECIFIED Status: Acute (7) Osteoarthritis Code(s): M19.90 - UNSPECIFIED OSTEOARTHRITIS, UNSPECIFIED SITE Status: Acute (8) VRE (vancomycin-resistant Enterococci) infection Code(s): A49.1 - STREPTOCOCCAL INFECTION, UNSPECIFIED SITE; Z16.21 - RESISTANCE TO VANCOMYCIN Status: Acute - Plan Plan: critical care unit EP consultation, recommendations appreciated infectious disease consultation, recommendations appreciated status post removal of infected pacemaker infectious disease specialist to select antibiotics preliminary cultures with pseudomonas history of dyaka-pumy-nvazezrof infections continue other home medications as able blood pressure control blood sugar control G.I. prophylaxis DVT prophylaxis
[2019-07-15] MEDS: Cefepime 1 GM in Sodium Chloride 0.9% 100 ML IVPB SCH (15:30)
[2019-07-15] MEDS: Vancomycin HCl 750 MG in Sodium Chloride 0.9% 250 ML 250 ML IVPB SCH (16:21)
[2019-07-15] MEDS ORDERED: Atropine Sulfate 1 mg/1 ml Vial IVP PRN (16:52)
[2019-07-15] MEDS: Acetaminophen 325 MG TAB PO PRN (19:54)
[2019-07-16] MEDS: Levothyroxine Sodium 75 MCG TAB PO SCH (06:05)
[2019-07-16] MEDS: Aspirin Chewable 81 MG TAB PO SCH (08:04)
[2019-07-16] MEDS: Carvedilol 3.125 MG TAB PO SCH ×2 (08:04→17:06)
[2019-07-16] MEDS: Lisinopril 2.5 MG TAB PO SCH ×2 (08:04→20:45)
[2019-07-16] MEDS: Allopurinol 100 MG TAB PO SCH ×2 (08:04→20:47)
[2019-07-16] MEDS: Acetaminophen 325 MG TAB PO PRN ×2 (10:18→20:45)
[2019-07-16] MEDS: Cefepime 1 GM in Sodium Chloride 0.9% 100 ML IVPB SCH (15:24)
--- NOTE | 2019-07-16 15:52 | PDOC.HOSPP ---
- Subjective Subjective: Sitting upright in the bed. Breathing comfortably on room air. Patient slow to answer some questions though alert and oriented times three and has fair insight and her clinical condition. Patient complaining of expected incisional type pain. There is a clean and dry bandage in place. Patient's heart rate has been in the 40s, though she is asymptomatic from this. Time was given for questions, all answered in detail. - Objective Vital Signs & Weight: Vital Signs (12 hours) Temp Pulse Resp BP Pulse Ox 07/16/19 15:19 97.8 F 45 L 19 145/53 H 95 07/16/19 11:29 97.7 F 43 L 20 141/61 H 95 07/16/19 07:03 96 07/16/19 07:00 97.8 F 55 L 19 152/62 H 96 07/16/19 03:57 97.7 F 54 L 18 96/48 L 95 Weight Admit Weight 176 lb 11.2 oz Weight 177 lb 3.2 oz I&O: 07/15/19 07/16/19 07/17/19 06:59 06:59 06:59 Intake Total 930 Output Total 500 Balance 430 Result Diagrams: 07/15/19 05:55 07/15/19 05:55 Radiology Reviewed by me: Yes Hospitalist ROS - Review of Systems All other systems reviewed; all pertinent +/- noted in HPI/Subj - Medication Medications: Active Medications Generic Name Dose Route Start Last Admin Trade Name Freq PRN Reason Stop Dose Admin Acetaminophen 650 mg 07/14/19 19:46 07/16/19 10:18 Tylenol PO 650 mg Q4H PRN Administration Headache/Fever/Mild Pain (1-3) Allopurinol 100 mg 07/15/19 09:00 07/16/19 08:04 Zyloprim PO 100 mg BID LAKESHA Administration Aspirin 81 mg 07/15/19 09:00 07/16/19 08:04 Aspirin Chewable PO 81 mg DAILY LAKESHA Administration Atropine Sulfate 0.5 mg 07/15/19 16:52 07/16/19 04:47 Atropine IVP 0.5 mg Q6H PRN Administration SYMPTOMATIC BRADYCARDIA Carvedilol 3.125 mg 07/15/19 08:00 07/16/19 08:04 Coreg PO 3.125 mg BID- LAKESHA Administration Cefepime HCl 1 gm/ Sodium 100 mls @ 200 mls/hr 07/15/19 15:00 07/16/19 15:24 Chloride IVPB 100 mls Q24HR LAKESHA Administration Vancomycin HCl 750 mg/ Sodium 250 mls @ 250 mls/hr 07/15/19 17:00 07/15/19 16 :21 Chloride IVPB 250 mls Q24HR LAKESHA Administration Levothyroxine Sodium 75 mcg 07/16/19 06:00 07/16/19 06:05 Synthroid PO 75 mcg 0600 LAKESHA Administration Lisinopril 2.5 mg 07/15/19 09:00 07/16/19 08:04 Zestril PO 2.5 mg BID LAKESHA Administration Sodium Chloride 10 ml 07/15/19 09:00 07/16/19 08:04 Flush - Normal Saline IVF 10 ml Q12HR LAKESHA Administration - Exam General Appearance: NAD, awake alert Eye: anicteric sclera ENT: normocephalic atraumatic, moist mucosa Neck: supple, symmetric, no lymphadenopathy Heart: no murmur, no gallops, no rubs Respiratory: CTAB, no wheezes, no rales, no ronchi, no tachypnea Gastrointestinal: soft, non-tender, no guarding, no rigidity Extremities: no edema Skin: no lesions, no rashes Skin - other findings: left upper chest dressing clean and dry, freshly changed Neurological: cranial nerve grossly intact, no focal deficits Musculoskeletal: generalized weakness Psychiatric: normal behavior, A&O x 3 Hosp A/P (1) Pacemaker infection Code(s): T82.7XXA - INFECT/INFLM REACT D/T OTH CARDI/VASC DEV/IMPLNT/GRFT, INIT Status: Acute (2) Pacemaker complications Code(s): T82.9XXA - UNSP COMP OF CARDIAC AND VASCULAR PROSTH DEV/GRFT, INIT Status: Acute (3) HTN (hypertension) Code(s): I10 - ESSENTIAL (PRIMARY) HYPERTENSION Status: Acute (4) Hypothyroid Code(s): E03.9 - HYPOTHYROIDISM, UNSPECIFIED Status: Acute (5) Mobitz II Code(s): I44.1 - ATRIOVENTRICULAR BLOCK, SECOND DEGREE Status: Acute (6) Obesity Code(s): E66.9 - OBESITY, UNSPECIFIED Status: Acute (7) Osteoarthritis Code(s): M19.90 - UNSPECIFIED OSTEOARTHRITIS, UNSPECIFIED SITE Status: Acute (8) VRE (vancomycin-resistant Enterococci) infection Code(s): A49.1 - STREPTOCOCCAL INFECTION, UNSPECIFIED SITE; Z16.21 - RESISTANCE TO VANCOMYCIN Status: Acute - Plan Plan: Medical unit with telemetry Cardiology consultation, recommendations appreciated EP consultation, recommendations appreciated infectious disease consultation, recommendations appreciated status post removal of infected pacemaker infectious disease specialist to select antibiotics preliminary cultures with pseudomonas history of lgqhr-[id number]-ngiaunbsl infections continue other home medications as able blood pressure control blood sugar control G.I. prophylaxis DVT prophylaxis
[2019-07-16 16:20] LABS: Vancomycin, Trough 16.6 ug/mL
[2019-07-16] MEDS: Vancomycin HCl 750 MG in Sodium Chloride 0.9% 250 ML 250 ML IVPB SCH (17:06)
[2019-07-16] MEDS: Ondansetron PF 4 MG/2 ML Vial IVP PRN (20:44)
[2019-07-17] MEDS: Levothyroxine Sodium 75 MCG TAB PO SCH (05:21)
[2019-07-17] MEDS: Carvedilol 3.125 MG TAB PO SCH ×2 (08:01→17:17)
[2019-07-17] MEDS: Aspirin Chewable 81 MG TAB PO SCH (08:01)
[2019-07-17] MEDS: Lisinopril 2.5 MG TAB PO SCH ×2 (08:01→21:23)
[2019-07-17] MEDS: Allopurinol 100 MG TAB PO SCH ×2 (08:01→21:23)
[2019-07-17] MEDS: Ondansetron PF 4 MG/2 ML Vial IVP PRN ×2 (11:03→18:53)
--- NOTE | 2019-07-17 12:50 | PDOC.HOSPP ---
- Subjective Subjective: Seen and examined on the medical unit with telemetry. Patient with clean and dry dressing over excised pacemaker. Patient with mild nausea and episode of vomiting. Her abdomen is soft and nontender. She is moving her bowels. She is not having diarrhea. Patient was pseudomonas in the wound, sensitive to current antibiotics. - Objective Vital Signs & Weight: Vital Signs (12 hours) Temp Pulse Resp BP Pulse Ox 07/17/19 11:03 97.7 F 49 L 18 122/59 L 96 07/17/19 07:00 95 07/17/19 06:57 98.4 F 40 L 16 134/56 L 95 07/17/19 03:32 99.0 F 45 L 14 131/51 L 98 Weight Admit Weight 176 lb 11.2 oz Weight 180 lb 1.6 oz I&O: 07/16/19 07/17/19 07/18/19 06:59 06:59 06:59 Intake Total 930 960 Output Total 500 600 Balance 430 360 Result Diagrams: 07/15/19 05:55 07/15/19 05:55 Radiology Reviewed by me: Yes Hospitalist ROS - Review of Systems All other systems reviewed; all pertinent +/- noted in HPI/Subj - Medication Medications: Active Medications Generic Name Dose Route Start Last Admin Trade Name Freq PRN Reason Stop Dose Admin Acetaminophen 650 mg 07/14/19 19:46 07/16/19 20:45 Tylenol PO 650 mg Q4H PRN Administration Headache/Fever/Mild Pain (1-3) Allopurinol 100 mg 07/15/19 09:00 07/17/19 08:01 Zyloprim PO 100 mg BID LAKESHA Administration Aspirin 81 mg 07/15/19 09:00 07/17/19 08:01 Aspirin Chewable PO 81 mg DAILY LAKESHA Administration Atropine Sulfate 0.5 mg 07/15/19 16:52 07/16/19 04:47 Atropine IVP 0.5 mg Q6H PRN Administration SYMPTOMATIC BRADYCARDIA Carvedilol 3.125 mg 07/15/19 08:00 07/17/19 08:01 Coreg PO 3.125 mg BID- LAKESHA Administration Cefepime HCl 1 gm/ Sodium 100 mls @ 200 mls/hr 07/15/19 15:00 07/16/19 15:24 Chloride IVPB 100 mls Q24HR LAKESHA Administration Levothyroxine Sodium 75 mcg 07/16/19 06:00 07/17/19 05:21 Synthroid PO 75 mcg 0600 LAKESHA Administration Lisinopril 2.5 mg 07/15/19 09:00 07/17/19 08:01 Zestril PO 2.5 mg BID LAKESHA Administration Ondansetron HCl 4 mg 07/16/19 17:39 07/17/19 11:03 Zofran IVP 4 mg Q4H PRN Administration Nausea/Vomiting Sodium Chloride 10 ml 07/15/19 09:00 07/17/19 08:02 Flush - Normal Saline IVF 10 ml Q12HR LAKESHA Administration - Exam General Appearance: NAD, awake alert Eye: anicteric sclera ENT: normocephalic atraumatic, moist mucosa Neck: supple, symmetric Heart: no murmur, no gallops, no rubs Respiratory: CTAB, no wheezes, no rales, no ronchi, normal chest expansion Gastrointestinal: soft, non-tender, non-distended, normal bowel sounds, no palpable masses, no guarding, no rigidity Extremities: no edema Skin: no lesions, no rashes Neurological: cranial nerve grossly intact, no focal deficits Musculoskeletal: generalized weakness Psychiatric: normal behavior, A&O x 3 Hosp A/P (1) Pacemaker infection Code(s): T82.7XXA - INFECT/INFLM REACT D/T OTH CARDI/VASC DEV/IMPLNT/GRFT, INIT Status: Acute (2) Pacemaker complications Code(s): T82.9XXA - UNSP COMP OF CARDIAC AND VASCULAR PROSTH DEV/GRFT, INIT Status: Acute (3) HTN (hypertension) Code(s): I10 - ESSENTIAL (PRIMARY) HYPERTENSION Status: Acute (4) Hypothyroid Code(s): E03.9 - HYPOTHYROIDISM, UNSPECIFIED Status: Acute (5) Mobitz II Code(s): I44.1 - ATRIOVENTRICULAR BLOCK, SECOND DEGREE Status: Acute (6) Obesity Code(s): E66.9 - OBESITY, UNSPECIFIED Status: Acute (7) Osteoarthritis Code(s): M19.90 - UNSPECIFIED OSTEOARTHRITIS, UNSPECIFIED SITE Status: Acute (8) VRE (vancomycin-resistant Enterococci) infection Code(s): A49.1 - STREPTOCOCCAL INFECTION, UNSPECIFIED SITE; Z16.21 - RESISTANCE TO VANCOMYCIN Status: Acute - Plan Plan: Medical unit with telemetry Cardiology consultation, recommendations appreciated EP consultation, recommendations appreciated infectious disease consultation, recommendations appreciated status post removal of infected pacemaker Wound with pseudomonas, sensitive to Meropenem D/c vancomycin Blood cultures no growth to date PRN medications for N/v continue other home medications as able blood pressure control blood sugar control G.I. prophylaxis DVT prophylaxis
[2019-07-17] MEDS: Cefepime 1 GM in Sodium Chloride 0.9% 100 ML IVPB SCH (15:05)
[2019-07-18] MEDS: Acetaminophen 325 MG TAB PO PRN ×2 (04:59→09:26)
[2019-07-18] MEDS: Levothyroxine Sodium 75 MCG TAB PO SCH (05:01)
[2019-07-18] MEDS: Carvedilol 3.125 MG TAB PO SCH ×2 (09:21→18:29)
[2019-07-18] MEDS: Lisinopril 2.5 MG TAB PO SCH ×2 (09:21→21:24)
[2019-07-18] MEDS: Allopurinol 100 MG TAB PO SCH ×2 (09:23→21:24)
[2019-07-18] MEDS: Aspirin Chewable 81 MG TAB PO SCH (09:23)
[2019-07-18] MEDS ORDERED: PHENYLEPHRINE-NS 100 MCG/ML 10 ML SYRINGE ONE (10:43)
[2019-07-18] MEDS ORDERED: Glycopyrrolate 0.2 MG/ML 5 ML SYRINGE ONE (10:43)
--- NOTE | 2019-07-18 12:22 | PDOC.HOSPP ---
- Subjective Encounter Date: 07/18/19 Encounter Time: 12:15 Subjective: f/u for symptomatic bradycardia with PM pocket infection isolated with Pseudomonas tx with Cefepime. Plan for PM re-insertion today. - Objective Vital Signs & Weight: Vital Signs (12 hours) Temp Pulse Pulse Pulse Resp BP BP 07/18/19 10:55 35 L 37 L 140/58 L 07/18/19 09:21 55 L 109/55 L 07/18/19 08:00 98.0 F 55 L 18 07/18/19 04:00 98.2 F 43 L 23 H BP BP Pulse Ox 07/18/19 10:55 129/60 07/18/19 09:21 07/18/19 08:00 109/55 L 92 L 07/18/19 04:00 164/64 H 96 Weight Admit Weight 176 lb 11.2 oz Weight 177 lb I&O: 07/17/19 07/18/19 07/19/19 06:59 06:59 06:59 Intake Total 960 940 Output Total 600 400 Balance 360 540 Result Diagrams: 07/15/19 05:55 07/15/19 05:55 Additional Labs: Microbiology 07/14/19 14:55 Chest - Pending Bacterial Culture - Final Pseudomonas aeruginosa 07/14/19 14:54 Venous blood - Right Hand Blood Culture - Preliminary NO GROWTH AT 48 HOURS 07/14/19 14:54 Venous blood - Left Arm Blood Culture - Preliminary NO GROWTH AT 48 HOURS Laboratory Tests 07/14/19 07/16/19 14:54 15:54 Creatinine 1.21 H Vancomycin Trough 16.6 EKG Reviewed by me: Yes (Tele - sinus marleni in 30's) Hospitalist ROS - Medication Medications: Active Medications Generic Name Dose Route Start Last Admin Trade Name Freq PRN Reason Stop Dose Admin Acetaminophen 650 mg 07/14/19 19:46 07/18/19 09:26 Tylenol PO 650 mg Q4H PRN Administration Headache/Fever/Mild Pain (1-3) Allopurinol 100 mg 07/15/19 09:00 07/18/19 09:23 Zyloprim PO 100 mg BID LAKESHA Administration Aspirin 81 mg 07/15/19 09:00 07/18/19 09:23 Aspirin Chewable PO 81 mg DAILY LAKESHA Administration Atropine Sulfate 0.5 mg 07/15/19 16:52 07/16/19 04:47 Atropine IVP 0.5 mg Q6H PRN Administration SYMPTOMATIC BRADYCARDIA Carvedilol 3.125 mg 07/15/19 08:00 07/18/19 09:21 Coreg PO Not Given BID- LAKESHA Cefepime HCl 1 gm/ Sodium 100 mls @ 200 mls/hr 07/15/19 15:00 07/17/19 15:05 Chloride IVPB 100 mls Q24HR LAKESHA Administration Levothyroxine Sodium 75 mcg 07/16/19 06:00 07/18/19 05:01 Synthroid PO 75 mcg 0600 LAKESHA Administration Lisinopril 2.5 mg 07/15/19 09:00 07/18/19 09:21 Zestril PO Not Given BID LAKESHA Ondansetron HCl 4 mg 07/16/19 17:39 07/17/19 18:53 Zofran IVP 4 mg Q4H PRN Administration Nausea/Vomiting Sodium Chloride 10 ml 07/15/19 09:00 07/18/19 09:23 Flush - Normal Saline IVF 10 ml Q12HR LAKESHA Administration - Exam General - other findings: lethargic, mumbles Eye: PERRL, anicteric sclera ENT: normocephalic atraumatic, no oropharyngeal lesions Neck: supple, symmetric, no JVD, no thyromegaly Heart: no murmur, no gallops, no rubs Heart - other findings: bradycardic Respiratory: CTAB, no wheezes, no rales, no ronchi Gastrointestinal: soft, non-tender, non-distended, normal bowel sounds, no palpable masses Extremities: no cyanosis, no clubbing, no edema Skin: normal turgor, no lesions Musculoskeletal: generalized weakness Psychiatric: oriented to person, somnolent, lethargic Hosp A/P (1) Symptomatic bradycardia Code(s): R00.1 - BRADYCARDIA, UNSPECIFIED Status: Acute Plan: Plan for PM reinsertion today, Atropine IV PRN (2) Pacemaker infection Code(s): T82.7XXA - INFECT/INFLM REACT D/T OTH CARDI/VASC DEV/IMPLNT/GRFT, INIT Status: Acute Plan: Pseudomonas isolated, continue Cefepime, options for po abx include Quinolones (3) HTN (hypertension) Code(s): I10 - ESSENTIAL (PRIMARY) HYPERTENSION Status: Chronic Qualifiers: Hypertension type: essential hypertension Qualified Code(s): I10 - Essential (primary) hypertension Plan: Limited options until bradycardia treated, continue to monitor trend and titrate regimen after PM insertion (4) Hypothyroid Code(s): E03.9 - HYPOTHYROIDISM, UNSPECIFIED Status: Chronic Plan: Continue Levothyroxine 75mcg daily - Plan continue antibiotics, 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
[2019-07-18] MEDS ORDERED: Atropine Sulfate 1 mg/10 ml Syringe ONE (12:40)
[2019-07-18] MEDS ORDERED: Iopamidol 370 76% 50 ML VIAL FS ONE (14:22)
[2019-07-18] MEDS ORDERED: Fentanyl 100 MCG/2 ML VIAL ONE (15:30)
[2019-07-18] MEDS ORDERED: Midazolam HCl 2 mg/2 ml Vial ONE (15:30)
[2019-07-18] MEDS ORDERED: Propofol 500 MG/50 ML VIAL ONE (15:32)
[2019-07-18] MEDS ORDERED: Ketamine 50 MG/ML (10ML VIAL) ONE (15:32)
[2019-07-18] MEDS ORDERED: Phenylephrine HCL 10 MG/ML VIAL ONE (16:13)
[2019-07-18] MEDS ORDERED: Promethazine HCl 25 MG/ML VIAL SLOW IVP PRN (16:48)
[2019-07-18] MEDS ORDERED: Ondansetron HCl/PF 4 MG/2 ML Vial IVP PRN (16:48)
[2019-07-18] MEDS ORDERED: Promethazine HCl 25 MG/ML VIAL IM PRN (16:48)
[2019-07-18] MEDS: Cefepime 1 GM in Sodium Chloride 0.9% 100 ML IVPB SCH (18:29)
--- NOTE | 2019-07-18 19:03 | RAD ---
CHEST ONE VIEW: Comparison: 07-14-2019 History: Status post pacemaker placement. FINDINGS: Right sided transvenous pacemaker with lead position in the right atrium and right ventricle. Normal cardiac silhouette. Atherosclerosis of the aorta. No pleural effusion or masses or consolidation. No pneumothorax. IMPRESSION: Right sided transvenous pacemaker with leads positioned as described above. No pneumothorax. POS: PPP
[2019-07-18] MEDS ORDERED: CEFAZOLIN 1 GM in Sodium Chloride 0.9% 100 ML IVPB SCH (22:00)
[2019-07-18] MEDS ORDERED: ceFAZolin 1 GM/D5W 1 GM in Premix Bag 1 BAG IVPB SCH (22:00)
[2019-07-19] MEDS: Acetaminophen 325 MG TAB PO PRN ×2 (05:54→09:13)
[2019-07-19] MEDS: Levothyroxine Sodium 75 MCG TAB PO SCH (05:54)
[2019-07-19] MEDS ORDERED: CEFAZOLIN 1 GM in Sodium Chloride 0.9% 100 ML IVPB SCH (06:00)
[2019-07-19] MEDS: Allopurinol 100 MG TAB PO SCH ×2 (09:13→21:43)
[2019-07-19] MEDS: Lisinopril 2.5 MG TAB PO SCH ×2 (09:14→21:41)
[2019-07-19] MEDS: Carvedilol 3.125 MG TAB PO SCH ×2 (09:21→16:49)
[2019-07-19] MEDS: Aspirin Chewable 81 MG TAB PO SCH (09:21)
[2019-07-19] MEDS: Cefepime 1 GM in Sodium Chloride 0.9% 100 ML IVPB SCH (16:49)
--- NOTE | 2019-07-19 18:03 | PDOC.EP ---
- Subjective Date: 07/19/19 Time: 08:00 Interval History: follow up after PPM explant Thursday and reimplant Thursday. Was having symptomatic bradycardia. PPM working well. Patient resting in bed. explant site remains covered. No complaints. - Review of Systems Constitutional: denies: chills, fever, malaise, sweats, weakness, other Respiratory: denies: cough, dry, hemoptysis, pleuritic pain, shortness of breath , SOB with excertion, sputum, wheezing, other Cardiology: denies: chest pain, edema, heart racing, light headedness, passing out - Objective Allergies/Adverse Reactions: Allergies Allergy/AdvReac Type Severity Reaction Status Date / Time No Known Drug Allergies Allergy Verified 07/15/19 00:03 Current Medications Acetaminophen (Tylenol) 650 mg PO Q4H PRN PRN Reason: Headache/Fever/Mild Pain (1-3) Last Admin: 07/19/19 09:13 Dose: 650 mg Albuterol/Ipratropium (Duoneb) 3 ml NEB [id number] PRN PRN Reason: SOB &/or Wheezing Allopurinol (Zyloprim) 100 mg PO BID [facility] Last Admin: 07/19/19 09:13 Dose: 100 mg Aspirin (Aspirin Chewable) 81 mg PO DAILY [facility] Last Admin: 07/19/19 09:21 Dose: 81 mg Atropine Sulfate (Atropine) 0.5 mg IVP Q6H PRN PRN Reason: SYMPTOMATIC BRADYCARDIA Last Admin: 07/16/19 04:47 Dose: 0.5 mg Carvedilol (Coreg) 3.125 mg PO BID[facility] Last Admin: 07/19/19 16:49 Dose: 3.125 mg Cefepime HCl 1 gm/ Sodium (Chloride) 100 mls @ 200 mls/hr IVPB Q24HR [facility] Last Admin: 07/19/19 16:49 Dose: 100 mls Levothyroxine Sodium (Synthroid) 75 mcg PO 0600 [facility] Last Admin: 07/19/19 05:54 Dose: 75 mcg Lisinopril (Zestril) 2.5 mg PO BID [facility] Last Admin: 07/19/19 09:14 Dose: 2.5 mg Miscellaneous Medication (Pharmacy To Dose) 1 each IVPB PRN PRN PRN Reason: Pharmacy to dose Ondansetron HCl (Zofran) 4 mg IVP Q4H PRN PRN Reason: Nausea/Vomiting Last Admin: 07/17/19 18:53 Dose: 4 mg Sodium Chloride (Flush - Normal Saline) 10 ml IVF Q12HR [facility] Last Admin: 07/19/19 09:21 Dose: 10 ml Sodium Chloride (Flush - Normal Saline) 10 ml IVF PRN PRN PRN Reason: Saline Flush Vital Signs & Weight: Vital Signs Temp Pulse Resp BP BP Pulse Ox 07/19/19 16:00 97.8 F 60 16 95 07/19/19 12:00 60 143/68 H 07/19/19 09:14 60 127/76 07/19/19 08:00 97.9 F 60 16 127/46 L 94 L Admit Weight 176 lb 11.2 oz Weight 178 lb 3.2 oz I/O: I/O 07/18/19 07/19/19 07/20/19 06:59 06:59 06:59 Intake Total 940 780 Output Total 400 250 Balance 540 530 - Physical Exam General: no apparent distress HEENT: mucus membranes moist, normocephaly, EOMI Neck: supple neck, midline trachea, no JVD/HJR Cardiology: regular rate and rhythm, no murmur, PMI nondisplaced Lungs: clear to auscultation, normal breath sounds, no wheeze, rales, rhonchi Neurology: cranial nerve 2-12 intact, grossly intact, no lateralizing findings Skin: device site stable w/o swelling, right sided device, other (left sided explant. Drsg CDI) - Labs Result Diagrams: 07/15/19 05:55 07/15/19 05:55 - EKG Interpretation EKG shows: Atypical atrial flutter - Device Device: biventricular, pacemaker Device Result: [employer] - Assessment/Plan Assessment/Plan: 1. Bi Ventricular PPM - right sided implant after left sided device was explanted for pocket errosion. BC negative x 2. Left pocket did grow pseudomonas 2. LBBB -corrected with PRINTING PRESS MACHINIST device 3. Transient high grade AV block - corrected with PRINTING PRESS MACHINIST PPM 4. Symptomatic bradycardia - corrected with PRINTING PRESS MACHINIST PPM 5. Atrial flutter Device check shows normal function. Consistent PRINTING PRESS MACHINIST pacing seen on tele. CXR stable. Have ordered wound care to eval and treat explant site with wound vac to promote healing and prevent spread of infection. If patient picking at right sided implant site will have dressing placed. Continue post implant anbx. Likely resume OAC tomorrow PM
--- NOTE | 2019-07-19 20:47 | PDOC.HOSPP ---
- Subjective Encounter Date: 07/19/19 Encounter Time: 17:45 Subjective: f/u for symptomatic bradycardia s/p re-implanted Bi-V Pacemaker POD #1. Feels good and more alert. States she is hungry. - Objective Vital Signs & Weight: Vital Signs (12 hours) Temp Pulse Resp BP BP Pulse Ox 07/19/19 16:00 97.8 F 60 16 95 07/19/19 12:00 60 143/68 H 07/19/19 09:14 60 127/76 Weight Admit Weight 176 lb 11.2 oz Weight 178 lb 3.2 oz I&O: 07/18/19 07/19/19 07/20/19 06:59 06:59 06:59 Intake Total 940 780 600 Output Total 400 250 500 Balance 540 530 100 Result Diagrams: 07/15/19 05:55 07/15/19 05:55 Additional Labs: Microbiology 07/14/19 14:55 Chest - Pending Bacterial Culture - Final Pseudomonas aeruginosa 07/14/19 14:54 Venous blood - Right Hand Blood Culture - Preliminary NO GROWTH AT 48 HOURS 07/14/19 14:54 Venous blood - Left Arm Blood Culture - Preliminary NO GROWTH AT 48 HOURS Laboratory Tests 07/14/19 07/16/19 14:54 15:54 Creatinine 1.21 H Vancomycin Trough 16.6 Radiology Reviewed by me: Yes (PCXR - appropriate positioned R-sided PM, no PTX) EKG Reviewed by me: Yes (Tele - Paced in 60's) Hospitalist ROS - Medication Medications: Active Medications Generic Name Dose Route Start Last Admin Trade Name Freq PRN Reason Stop Dose Admin Acetaminophen 650 mg 07/14/19 19:46 07/19/19 09:13 Tylenol PO 650 mg Q4H PRN Administration Headache/Fever/Mild Pain (1-3) Allopurinol 100 mg 07/15/19 09:00 07/19/19 09:13 Zyloprim PO 100 mg BID [facility] Administration Aspirin 81 mg 07/15/19 09:00 07/19/19 09:21 Aspirin Chewable PO 81 mg DAILY [facility] Administration Atropine Sulfate 0.5 mg 07/15/19 16:52 07/16/19 04:47 Atropine IVP 0.5 mg Q6H PRN Administration SYMPTOMATIC BRADYCARDIA Carvedilol 3.125 mg 07/15/19 08:00 07/19/19 16:49 Coreg PO 3.125 mg BID-[facility] Administration Cefepime HCl 1 gm/ Sodium 100 mls @ 200 mls/hr 07/15/19 15:00 07/19/19 16:49 Chloride IVPB 100 mls Q24HR [facility] Administration Levothyroxine Sodium 75 mcg 07/16/19 06:00 07/19/19 05:54 Synthroid PO 75 mcg 0600 [facility] Administration Lisinopril 2.5 mg 07/15/19 09:00 07/19/19 09:14 Zestril PO 2.5 mg BID [facility] Administration Ondansetron HCl 4 mg 07/16/19 17:39 07/17/19 18:53 Zofran IVP 4 mg Q4H PRN Administration Nausea/Vomiting Sodium Chloride 10 ml 07/15/19 09:00 07/19/19 09:21 Flush - Normal Saline IVF 10 ml Q12HR [facility] Administration - Exam General Appearance: NAD, awake alert Eye: PERRL, anicteric sclera ENT: normocephalic atraumatic, no oropharyngeal lesions Neck: supple, symmetric, no JVD, no thyromegaly Heart: RRR, no gallops, no rubs, normal peripheral pulses Respiratory: CTAB, no wheezes, no rales, no ronchi Gastrointestinal: soft, non-tender, non-distended, normal bowel sounds Extremities: no cyanosis, no clubbing Skin: normal turgor, no lesions Neurological: cranial nerve grossly intact, no new deficit Musculoskeletal: normal tone, generalized weakness Psychiatric: oriented to person Hosp A/P (1) Symptomatic bradycardia Code(s): R00.1 - BRADYCARDIA, UNSPECIFIED Status: Acute Plan: s/p re-implanted R-sided Bi-V PPM, POD #1, stable (2) Pacemaker infection Code(s): T82.7XXA - INFECT/INFLM REACT D/T OTH CARDI/VASC DEV/IMPLNT/GRFT, INIT Status: Acute Plan: Pseudomonas isolated, continue Cefepime (3) HTN (hypertension) Code(s): I10 - ESSENTIAL (PRIMARY) HYPERTENSION Status: Chronic Qualifiers: Hypertension type: essential hypertension Qualified Code(s): I10 - Essential (primary) hypertension (4) Hypothyroid Code(s): E03.9 - HYPOTHYROIDISM, UNSPECIFIED Status: Chronic - Plan continue antibiotics, PT/OT, social scientist, DVT proph w/SCDs Stable currently Coreg resuming Eliquis resuming PT for mobilization WCT for local care
[2019-07-20] MEDS: Levothyroxine Sodium 75 MCG TAB PO SCH (05:57)
[2019-07-20] MEDS: Aspirin Chewable 81 MG TAB PO SCH (08:38)
[2019-07-20] MEDS: Lisinopril 2.5 MG TAB PO SCH ×2 (08:38→20:13)
[2019-07-20] MEDS: Allopurinol 100 MG TAB PO SCH ×2 (08:39→20:14)
[2019-07-20] MEDS: Carvedilol 3.125 MG TAB PO SCH (08:39)
[2019-07-20] MEDS ORDERED: Carvedilol 3.125 MG TAB PO SCH ×2 (08:50→09:30)
[2019-07-20] MEDS ORDERED: Carvedilol 6.25 MG TAB PO SCH (09:00)
[2019-07-20] MEDS: Acetaminophen 325 MG TAB PO PRN (10:02)
--- NOTE | 2019-07-20 10:06 | PDOC.HOSPP ---
- Subjective Encounter Date: 07/20/19 Encounter Time: 10:00 Subjective: f/u for PM pocket infection with isolated pseudomonas spp on Cefepime. s/p second PPM insertion on R-side POD #2. Some pain on R chest. No other complaints. - Objective Vital Signs & Weight: Vital Signs (12 hours) Temp Pulse Resp BP Pulse Ox 07/20/19 07:50 97.9 F 61 18 179/65 H 96 07/20/19 03:53 98.1 F 61 18 149/63 H 96 07/20/19 00:00 135/51 L Weight Admit Weight 176 lb 11.2 oz Weight 180 lb 6.4 oz I&O: 07/19/19 07/20/19 07/21/19 06:59 06:59 06:59 Intake Total 780 690 Output Total 250 950 Balance 530 -260 Result Diagrams: 07/15/19 05:55 07/15/19 05:55 Additional Labs: Microbiology 07/14/19 14:55 Chest - Pending Bacterial Culture - Final Pseudomonas aeruginosa 07/14/19 14:54 Venous blood - Right Hand Blood Culture - Preliminary NO GROWTH AT 48 HOURS 07/14/19 14:54 Venous blood - Left Arm Blood Culture - Preliminary NO GROWTH AT 48 HOURS Laboratory Tests 07/14/19 07/16/19 14:54 15:54 Creatinine 1.21 H Vancomycin Trough 16.6 EKG Reviewed by me: Yes (Tele - V-paced) Hospitalist ROS - Medication Medications: Active Medications Generic Name Dose Route Start Last Admin Trade Name Freq PRN Reason Stop Dose Admin Acetaminophen 650 mg 07/14/19 19:46 07/20/19 10:02 Tylenol PO 650 mg Q4H PRN Administration Headache/Fever/Mild Pain (1-3) Allopurinol 100 mg 07/15/19 09:00 07/20/19 08:39 Zyloprim PO 100 mg BID [facility] Administration Aspirin 81 mg 07/15/19 09:00 07/20/19 08:38 Aspirin Chewable PO 81 mg DAILY [facility] Administration Atropine Sulfate 0.5 mg 07/15/19 16:52 07/16/19 04:47 Atropine IVP 0.5 mg Q6H PRN Administration SYMPTOMATIC BRADYCARDIA Carvedilol 3.125 mg 07/20/19 09:30 07/20/19 09:52 Coreg PO 07/20/19 11:00 3.125 mg NOW [facility] Administration Cefepime HCl 1 gm/ Sodium 100 mls @ 200 mls/hr 07/15/19 15:00 07/19/19 16:49 Chloride IVPB 100 mls Q24HR [facility] Administration Levothyroxine Sodium 75 mcg 07/16/19 06:00 07/20/19 05:57 Synthroid PO 75 mcg 0600 [facility] Administration Lisinopril 2.5 mg 07/15/19 09:00 07/20/19 08:38 Zestril PO 2.5 mg BID [facility] Administration Ondansetron HCl 4 mg 07/16/19 17:39 07/17/19 18:53 Zofran IVP 4 mg Q4H PRN Administration Nausea/Vomiting Sodium Chloride 10 ml 07/15/19 09:00 07/20/19 08:39 Flush - Normal Saline IVF 10 ml Q12HR [facility] Administration - Exam General Appearance: NAD, awake alert Eye: PERRL, anicteric sclera ENT: normocephalic atraumatic, no oropharyngeal lesions Neck: supple, symmetric, no JVD, no thyromegaly Heart: RRR, no gallops, no rubs, normal peripheral pulses Respiratory: CTAB, no wheezes, no rales, no ronchi Gastrointestinal: soft, non-tender, non-distended, normal bowel sounds Extremities: no cyanosis, 1+ LE edema Skin: normal turgor, no lesions Neurological: cranial nerve grossly intact, no new deficit Musculoskeletal: generalized weakness Psychiatric: oriented to person, oriented to place Hosp A/P (1) Symptomatic bradycardia Code(s): R00.1 - BRADYCARDIA, UNSPECIFIED Status: Acute Plan: Resolved after placement of 2nd PPM (2) Pacemaker infection Code(s): T82.7XXA - INFECT/INFLM REACT D/T OTH CARDI/VASC DEV/IMPLNT/GRFT, INIT Status: Acute Plan: Pseudomonas spp identified, convert to Levaquin today, Wound vac application and coordination for d/c (3) HTN (hypertension) Code(s): I10 - ESSENTIAL (PRIMARY) HYPERTENSION Status: Chronic Qualifiers: Hypertension type: essential hypertension Qualified Code(s): I10 - Essential (primary) hypertension (4) Hypothyroid Code(s): E03.9 - HYPOTHYROIDISM, UNSPECIFIED Status: Chronic - Plan continue antibiotics, PT/OT, school social worker, out of bed/ambulate, DVT proph w/ SCDs Stable currently Coreg increased 6.25mg BID Eliquis resuming PT for mobilization WCT for wound vac application Start Levaquin 500mg po daily D/C Cefepime Likely d/c in 24h
--- NOTE | 2019-07-20 15:30 | PDOC.EP ---
- Subjective Date: 07/20/19 Time: 15:28 - Review of Systems Constitutional: denies: chills, fever, malaise, sweats, weakness, other Cardiology: denies: chest pain, edema, heart racing, light headedness, paroxysmal noc. dyspnea, orthopnea, palpitations, passing out, pleuritic pain, pressure, swelling, other - Objective Allergies/Adverse Reactions: Allergies Allergy/AdvReac Type Severity Reaction Status Date / Time No Known Drug Allergies Allergy Verified 07/15/19 00:03 Current Medications Acetaminophen (Tylenol) 650 mg PO Q4H PRN PRN Reason: Headache/Fever/Mild Pain (1-3) Last Admin: 07/20/19 10:02 Dose: 650 mg Albuterol/Ipratropium (Duoneb) 3 ml NEB [id number] PRN PRN Reason: SOB &/or Wheezing Allopurinol (Zyloprim) 100 mg PO BID [facility] Last Admin: 07/20/19 08:39 Dose: 100 mg Apixaban (Eliquis) 5 mg PO BID [facility] Aspirin (Aspirin Chewable) 81 mg PO DAILY [facility] Last Admin: 07/20/19 08:38 Dose: 81 mg Atropine Sulfate (Atropine) 0.5 mg IVP Q6H PRN PRN Reason: SYMPTOMATIC BRADYCARDIA Last Admin: 07/16/19 04:47 Dose: 0.5 mg [facility] Levofloxacin (Levaquin) 500 mg PO 0600 [facility] Levothyroxine Sodium (Synthroid) 75 mcg PO 0600 [facility] Last Admin: 07/20/19 05:57 Dose: 75 mcg Lisinopril (Zestril) 2.5 mg PO BID [facility] Last Admin: 07/20/19 08:38 Dose: 2.5 mg Ondansetron HCl (Zofran) 4 mg IVP Q4H PRN PRN Reason: Nausea/Vomiting Last Admin: 07/17/19 18:53 Dose: 4 mg Sodium Chloride (Flush - Normal Saline) 10 ml IVF Q12HR [facility] Last Admin: 07/20/19 08:39 Dose: 10 ml Sodium Chloride (Flush - Normal Saline) 10 ml IVF PRN PRN PRN Reason: Saline Flush Vital Signs & Weight: Vital Signs Temp Pulse Pulse Pulse Resp BP BP 07/20/19 11:15 98.2 F 59 L 18 07/20/19 09:04 60 60 176/68 H 143/62 H 07/20/19 07:50 97.9 F 61 18 07/20/19 03:53 98.1 F 61 18 BP Pulse Ox 07/20/19 11:15 138/59 L 98 07/20/19 09:04 07/20/19 07:50 179/65 H 96 07/20/19 03:53 149/63 H 96 Admit Weight 176 lb 11.2 oz Weight 180 lb 6.4 oz I/O: I/O 07/19/19 07/20/19 07/21/19 06:59 06:59 06:59 Intake Total 780 690 Output Total 250 950 Balance 530 -260 - Physical Exam General: alert & oriented x3, appears well, no apparent distress Neck: supple neck Cardiology: regular rate and rhythm, no murmur Lungs: clear to auscultation Neurology: grossly intact Abdomen: unremarkable, active bowel sounds Extremities: warm Skin: device site stable w/o swelling Musculoskeletal: no pain - Labs Result Diagrams: 07/15/19 05:55 07/15/19 05:55 - EKG Interpretation EKG Method: Telemetry (AFL, V pacing) - Device Device: biventricular, pacemaker Device Result: [employer] (Adequate fx.) - Assessment/Plan Assessment/Plan: 1. Bi Ventricular PPM - right sided implant after left sided device was explanted for pocket errosion. BC negative x 2. Left pocket did grow pseudomonas 2. LBBB -corrected with DISTRICT ADVISER device 3. Transient high grade AV block - corrected with DISTRICT ADVISER PPM 4. Symptomatic bradycardia - corrected with DISTRICT ADVISER PPM 5. Atrial flutter Device check shows normal function. Consistent DISTRICT ADVISER pacing seen on tele. CXR stable. Have ordered wound care - placed wound vac to promote healing and prevent spread of infection. If patient picking at right sided implant site will have dressing placed. Continue post implant anbx. Likely resume OAC tomorrow PM
[2019-07-20] MEDS: Carvedilol 6.25 MG TAB PO SCH (16:32)
[2019-07-20] MEDS: Apixaban 5 MG TAB PO SCH (20:14)
[2019-07-21] MEDS: Levothyroxine Sodium 75 MCG TAB PO SCH (05:27)
[2019-07-21] MEDS: Acetaminophen 325 MG TAB PO PRN ×3 (05:29→15:16)
[2019-07-21] MEDS: Lisinopril 2.5 MG TAB PO SCH ×2 (08:56→20:42)
[2019-07-21] MEDS: Allopurinol 100 MG TAB PO SCH ×2 (08:56→20:43)
[2019-07-21] MEDS: Carvedilol 6.25 MG TAB PO SCH ×2 (08:57→16:25)
[2019-07-21] MEDS: Apixaban 5 MG TAB PO SCH ×2 (08:57→20:43)
[2019-07-21] MEDS: Aspirin Chewable 81 MG TAB PO SCH (08:57)
[2019-07-21 14:02] VITALS: BMI 31.4
--- NOTE | 2019-07-21 18:58 | PDOC.HOSPP ---
- Subjective Encounter Date: 07/21/19 Encounter Time: 16:30 Subjective: f/u for symptomatic bradycardia s/p second PPM placement on R after L-sided PM pocket infection with pseudomonas isolated. Currently on Levaquin and wound vac but no drainage noted in reservoir. - Objective Vital Signs & Weight: Vital Signs (12 hours) Temp Pulse Pulse Pulse Resp BP BP 07/21/19 15:17 98.1 F 60 18 07/21/19 13:15 62 60 128/60 130/61 07/21/19 11:04 98.2 F 60 18 07/21/19 08:49 07/21/19 06:57 98.2 F 61 18 BP Pulse Ox 07/21/19 15:17 147/56 H 100 07/21/19 13:15 07/21/19 11:04 144/57 H 99 07/21/19 08:49 131/57 L 07/21/19 06:57 80/46 L 96 Weight Admit Weight 176 lb 11.2 oz Weight 183 lb I&O: 07/20/19 07/21/19 07/22/19 06:59 06:59 06:59 Intake Total 690 980 720 Output Total 950 775 750 Balance -260 205 -30 Result Diagrams: 07/15/19 05:55 07/15/19 05:55 Additional Labs: Microbiology 07/14/19 14:55 Chest - Pending Bacterial Culture - Final Pseudomonas aeruginosa 07/14/19 14:54 Venous blood - Right Hand Blood Culture - Preliminary NO GROWTH AT 48 HOURS 07/14/19 14:54 Venous blood - Left Arm Blood Culture - Preliminary NO GROWTH AT 48 HOURS Laboratory Tests 07/14/19 07/16/19 14:54 15:54 Creatinine 1.21 H Vancomycin Trough 16.6 EKG Reviewed by me: Yes (Tele -100% Paced in 60's) Hospitalist ROS - Medication Medications: Active Medications Generic Name Dose Route Start Last Admin Trade Name Freq PRN Reason Stop Dose Admin Acetaminophen 650 mg 07/14/19 19:46 07/21/19 15:16 Tylenol PO 650 mg Q4H PRN Administration Headache/Fever/Mild Pain (1-3) Allopurinol 100 mg 07/15/19 09:00 07/21/19 08:56 Zyloprim PO 100 mg BID [facility] Administration Apixaban 5 mg 07/20/19 21:00 07/21/19 08:57 Eliquis PO 5 mg BID [facility] Administration Aspirin 81 mg 07/15/19 09:00 07/21/19 08:57 Aspirin Chewable PO 81 mg DAILY [facility] Administration Atropine Sulfate 0.5 mg 07/15/19 16:52 07/16/19 04:47 Atropine IVP 0.5 mg Q6H PRN Administration SYMPTOMATIC BRADYCARDIA Carvedilol 6.25 mg 07/20/19 17:00 07/21/19 16:25 Coreg PO 6.25 mg BID- [facility] Administration Levofloxacin 500 mg 07/21/19 06:00 07/21/19 05:27 Levaquin PO 500 mg 0600 [facility] Administration Levothyroxine Sodium 75 mcg 07/16/19 06:00 07/21/19 05:27 Synthroid PO 75 mcg 0600 [facility] Administration Lisinopril 2.5 mg 07/15/19 09:00 07/21/19 08:56 Zestril PO 2.5 mg BID [facility] Administration Ondansetron HCl 4 mg 07/16/19 17:39 07/17/19 18:53 Zofran IVP 4 mg Q4H PRN Administration Nausea/Vomiting Sodium Chloride 10 ml 07/15/19 09:00 07/21/19 08:59 Flush - Normal Saline IVF 10 ml Q12HR [facility] Administration - Exam General Appearance: NAD, awake alert Eye: PERRL, anicteric sclera ENT: normocephalic atraumatic, no oropharyngeal lesions Neck: supple, symmetric, no JVD, no thyromegaly Heart: RRR, no gallops, no rubs, normal peripheral pulses Respiratory: CTAB, no wheezes, no rales, no ronchi Respiratory - other findings: R upper chest PM in place, skin intact Gastrointestinal: soft, non-tender, non-distended, normal bowel sounds Extremities: no cyanosis, no clubbing Skin: normal turgor Neurological: cranial nerve grossly intact, no new deficit Musculoskeletal: normal tone, generalized weakness Psychiatric: oriented to person, oriented to place Hosp A/P (1) Symptomatic bradycardia Code(s): R00.1 - BRADYCARDIA, UNSPECIFIED Status: Acute Plan: s/p 2nd PPM insertion, continue supportive mgmt (2) Pacemaker infection Code(s): T82.7XXA - INFECT/INFLM REACT D/T OTH CARDI/VASC DEV/IMPLNT/GRFT, INIT Status: Acute Plan: Continue Levaquin (3) HTN (hypertension) Code(s): I10 - ESSENTIAL (PRIMARY) HYPERTENSION Status: Chronic Qualifiers: Hypertension type: essential hypertension Qualified Code(s): I10 - Essential (primary) hypertension (4) Hypothyroid Code(s): E03.9 - HYPOTHYROIDISM, UNSPECIFIED Status: Chronic - Plan continue antibiotics, PT/OT, social media intern, DVT proph w/SCDs Stable currently Coreg increased 6.25mg BID Eliquis resuming PT for mobilization WCT for wound vac application, may consider d/c wound vac with minimal drainage Levaquin 500mg po daily Likely d/c in 24h to SNF
[2019-07-22] MEDS: Levothyroxine Sodium 75 MCG TAB PO SCH (06:11)
[2019-07-22] MEDS: Carvedilol 6.25 MG TAB PO SCH ×2 (08:30→15:58)
[2019-07-22] MEDS: Acetaminophen 325 MG TAB PO PRN (08:30)
[2019-07-22] MEDS: Apixaban 5 MG TAB PO SCH (08:30)
[2019-07-22] MEDS: Lisinopril 2.5 MG TAB PO SCH (08:30)
[2019-07-22] MEDS: Allopurinol 100 MG TAB PO SCH (08:30)
[2019-07-22] MEDS: Aspirin Chewable 81 MG TAB PO SCH (08:30)
[2019-07-22 11:33] VITALS: TEMP 98.1
--- NOTE | 2019-07-22 12:16 | DIS ---
DATE OF ADMISSION: 07/15/2019 DATE OF DISCHARGE: 07/22/2019 DISCHARGE DIAGNOSES: 1. Symptomatic bradycardia, status post pacemaker placement. 2. 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 3. Hypertension, stable. 4. Hypothyroidism. 5. Cardiomyopathy with ejection fraction of 20% to 25%. CONSULTATIONS: Dr. Hernandez and Dr. Christian with Electrophysiology Service. PERTINENT LABORATORY AND X-RAY FINDINGS: Creatinine ranged between 1.02 to 1.21. Lactic acid level 1.3. LFTs within normal limits. CBC showed MCV ranging between 99 to 102. Blood cultures x2 dated 07/14/2019, showed no growth at 5 days. Chest wound culture dated 07/14/2019, positive for Pseudomonas aeruginosa. Portable chest x-ray dated 07/14/2019, showed cardiomegaly without acute infiltrate. Portable chest x-ray dated 07/18/2019, showed right-sided transvenous pacemaker device with appropriate positioning. No evidence of pneumothorax. HOSPITAL COURSE: The patient initially presented after identification of pacemaker site infection on the left upper chest wall. The patient underwent evaluation by the Electrophysiology Service and was taken for pacemaker removal on 07/15/2019. Wound cultures showed Pseudomonas aeruginosa species and the patient received IV cefepime. The patient also underwent wound VAC application to the left upper chest wall without significant drainage identified. The patient underwent a second pacemaker insertion on the right upper chest wall without complication. The patient was adjusted on her chronic medication regimen, continuing Coreg 6.25 mg b.i.d. and Eliquis 5 mg b.i.d. The patient transitioned to Levaquin 500 mg daily and will complete a 5-day course after discharge. Overall, the patient remained clinically stable during the hospital course. I have examined the patient at the time of discharge and discussed followup instructions. The patient ready for discharge on 07/22/2019. DISCHARGE MEDICATIONS: 1. Eliquis 5 mg p.o. b.i.d. 2. Lisinopril 2.5 mg p.o. b.i.d. 3. Omeprazole 40 mg p.o. daily. 4. MiraLAX 17 g p.o. daily. 5. Allopurinol 100 mg p.o. b.i.d. 6. Enteric-coated aspirin 81 mg p.o. daily. 7. Coreg 6.25 mg p.o. b.i.d. 8. Keflex 500 mg p.o. t.i.d. x10 days. 9. Colace 100 mg p.o. b.i.d. 10. Lasix 20 mg p.o. b.i.d. 11. DuoNeb 3 mL nebulized q.4 hours p.r.n. 12. Levaquin 500 mg p.o. daily until 07/27/2019. 13. Levothyroxine 75 mcg p.o. daily. 14. K-Dur 20 mEq p.o. b.i.d. 15. Spironolactone 25 mg p.o. daily. FOLLOWUP: The patient may follow up with Dr. Aleksandr Catherine after discharge. CONDITION ON DISCHARGE: Fair. ACTIVITY: Ad-alda. DIET: Heart healthy. CODE STATUS: Full. DISPOSITION: Discharged to [facility] on 07/22/2019. TIME SPENT: Total time preparing and coordinating discharge, 33 minutes. Job ID: [id number]
[2019-07-22 15:26] VITALS: BP 145/63
== END 2019-07-22 16:20 | DRG 243 ==
LOC: ERS 14:01 → ONC 17:27 → CCU 07-15 11:29 → OBSVTOIN 07-15 11:54 → 2NO 07-15 15:12
PROVIDERS: ADMIT Internal Medicine; ATTEND Internal Medicine
PROC: 0JPT0PZ Removal of Cardiac Rhythm Related Device from Trunk Subcutaneous Tissue and Fascia, Open Approach (ICD-10-PCS; principal; 2019-07-15)
PROC: 02PA3MZ Removal of Cardiac Lead from Heart, Percutaneous Approach (ICD-10-PCS; 2019-07-15)
PROC: 0JH607Z Insertion of Cardiac Resynchronization Pacemaker Pulse Generator into Chest Subcutaneous Tissue and Fascia, Open Approach (ICD-10-PCS; 2019-07-18)
PROC: 02HL3JZ Insertion of Pacemaker Lead into Left Ventricle, Percutaneous Approach (ICD-10-PCS; 2019-07-18)
PROC: 02HK3JZ Insertion of Pacemaker Lead into Right Ventricle, Percutaneous Approach (ICD-10-PCS; 2019-07-18)
DX: T82.7XXA Infection and inflammatory reaction due to other cardiac and vascular devices, implants and grafts, initial encounter (principal); N17.9 Acute kidney failure, unspecified; I13.0 Hypertensive heart and chronic kidney disease with heart failure and stage 1 through stage 4 chronic kidney disease, or unspecified chronic kidney disease; I50.22 Chronic systolic (congestive) heart failure; I42.9 Cardiomyopathy, unspecified; Z16.21 Resistance to vancomycin; I48.92 Unspecified atrial flutter; F03.90 Unspecified dementia, unspecified severity, without behavioral disturbance, psychotic disturbance, mood disturbance, and anxiety; M10.9 Gout, unspecified; E03.9 Hypothyroidism, unspecified; N18.2 Chronic kidney disease, stage 2 (mild); I44.7 Left bundle-branch block, unspecified; I44.1 Atrioventricular block, second degree; M19.91 Primary osteoarthritis, unspecified site; R00.1 Bradycardia, unspecified; B96.5 Pseudomonas (aeruginosa) (mallei) (pseudomallei) as the cause of diseases classified elsewhere; Z95.0 Presence of cardiac pacemaker; Z79.82 Long term (current) use of aspirin; Z79.52 Long term (current) use of systemic steroids
CPT/HCPCS: 33225; 33249; 36005; 36415; 71045; 75820; 80048; 80053; 80202; 83605; 85025; 87040; 87070; 87077; 87186; 87205; 93005; 93010; 96365; 96366; 96367; C1882; C1898; C1900; J0461; J0690; J0692; J1580; J2250; J2370; J2405; J2704; J3010; J3370; J3490; J7050; Q9967

== ENCOUNTER 2019-11-08 14:53 | Inpatient (IN) | payer MEDICARE, MEDICAID, OTHER ==
[2019-11-08 16:14] LABS: #Eosinphils 0.1 thou/uL (0.0-0.7); #Lymphocytes 1.3 thou/uL (1.20-3.40); #Monocytes 0.5 thou/uL (0.11-0.59); #Neutrophils 4.1 thou/uL (1.40-6.50); %Basophils 0.3 % (0.0-1.0); %Eosinophils 1.5 % (0.0-10.0); %Lymphocytes 21.8 % (21.0-51.0); %Monocytes 8.2 % (0.0-10.0); %Neutrophils 68.1 % (42.0-75.0); Hemoglobin 12.8 g/dL (12.0-16.0); Mean Corpuscular HGB CONC 31.3 g/dL (32.0-36.0); Mean Corpuscular Hemoglobin 31.7 pg (27.0-31.0); Mean Platelet Volume 8.3 fL (7.4-10.4); Platelet Count 189 thou/uL (130-400); RBC Distribution Width 15.3 % (11.5-14.5); Red Blood Cell (RBC) Count 4.05 mill/uL (4.20-5.40)
--- NOTE | 2019-11-08 16:31 | RAD ---
EXAM: CHEST ONE VIEW: 11/08/19 HISTORY: Shortness of breath. COMPARISON: 07/18/19. FINDINGS: Right ICD. Cardiomegaly. Small bilateral pleural effusions, larger on the left side with some bilate ral vascular congestion, worse when compared to the prior study. No new confluent process. IMPRESSION: Minimally worsening vascular congestion and small pleural effusions. Little change from the prior senia dy. POS: RRE
[2019-11-08 16:32] LABS: ALT (SGPT) 8 U/L (8-55); AST (SGOT) 13 U/L (5-34); Alkaline Phosphatase 97 U/L (40-110); Anion Gap 11 mmol/L (10-20); BUN (Urea Nitrogen) 9 mg/dL (9.8-20.1); Bilirubin, Total 0.6 mg/dL (0.2-1.2); Calc. Creatinine Clearance 0 mL/min (70-130); Calcium 8.9 mg/dL (7.8-10.44); Carbon Dioxide 31 mmol/L (23-31); Chloride 100 mmol/L (98-107); Estimated GFR-MDRD Greater than 90; Globulin 3.2 g/dL (2.4-3.5); Glucose 135 mg/dL (83-110); Potassium 3.8 mmol/L (3.5-5.1); Protein, Total 6.2 g/dL (6.0-8.3); Sodium 138 mmol/L (136-145)
[2019-11-08] MEDS ORDERED: Furosemide 40 MG/4 ML VIAL ONE (18:57)
[2019-11-08] MEDS ORDERED: hydrALAZINE 20 MG/ML VIAL SLOW IVP PRN (22:36)
[2019-11-08] MEDS ORDERED: Ondansetron ODT 4 MG TAB PO PRN (22:36)
[2019-11-08] MEDS ORDERED: Acetaminophen 325 MG TAB PO PRN (22:36)
[2019-11-08] MEDS ORDERED: Famotidine 20 MG TAB PO SCH (22:45)
--- NOTE | 2019-11-09 00:23 | HP ---
PRIMARY CARE PHYSICIAN: Aleksandr Catherine MD CHIEF COMPLAINT: Shortness of breath. HISTORY OF PRESENT ILLNESS: The history of present illness is a bit limited as the patient is a poor historian, however, quite a bit of the history is taken from review of the records as well as discussion with the ER physician. Ms. Blum is an 84-year-old female, who has a history of chronic systolic heart failure as well as hypertension. She also had to have a pacemaker removed due to an infection of the pocket. This was done a couple of months ago. She resides in a nursing facility as she is essentially bed bound. It is reported that she was having increasing lower extremity edema and the patient says that she was having some shortness of breath as well. This was attempted to be managed in the long term setting with of her Lasix dose. However, she did not have much improvement with her symptoms with this and as a result, she is being admitted to our facility for further treatment. The patient says that she had orthopnea on one occasion last night, but prior to that she has only had dyspnea. She denies having any chest pain. She notes increasing lower extremity edema, but otherwise she has had occasional cough. She reports some subjective fever but no nausea, no vomiting, no diarrhea. In the ER when she was evaluated, she was found to have radiographic evidence of decompensated heart failure as well as an elevated BNP. REVIEW OF SYSTEMS: All systems were reviewed and are negative except for that mentioned in the history of present illness. PAST MEDICAL HISTORY: Significant for chronic systolic heart failure, dementia, gout, hypothyroidism, and hypertension. The patient's last ejection fraction was estimated at 20% to 25% by echo in May 03, 2020. PAST SURGICAL HISTORY: She had a pacemaker placement and then removal of the pacemaker due to infection of the pocket. She had an AICD placed after removal of the pacemaker. ALLERGIES: NO KNOWN DRUG ALLERGIES. SOCIAL HISTORY: She is a nonsmoker and nondrinker. She resides in a nursing facility. Her code status is reported as being a full code on her past admission. FAMILY HISTORY: Unknown. CURRENT MEDICATIONS: Taken from the emergency room records and includes: 1. Allopurinol 100 mg twice a day. 2. Aspirin 81 mg daily. 3. Docusate sodium 100 mg twice daily. 4. Lasix 40 mg daily. 5. Levothyroxine 75 mcg daily. 6. MiraLAX 17 g daily. 7. Omeprazole 40 mg daily. 8. Zofran 4 mg sublingual as needed. 9. Potassium chloride 20 mEq p.o. daily. 10. Tylenol 325 mg 2 tablets every 6 hours as needed. 11. Carvedilol 6.25 mg twice daily. 12. Combivent Respimat two puffs every 6 hours as needed. 13. Eliquis 5 mg twice daily. 14. Lisinopril 2.5 mg two times a day. PHYSICAL EXAMINATION: GENERAL: She is alert and oriented. She appears to be in no acute distress. She is well developed and well nourished. VITAL SIGNS: Blood pressure was 112/48, heart rate 60, respiratory rate of 28, temperature is 98.1, and O2 saturation is 99% on room air. HEENT: Pupils are equal, round, and reactive. Extraocular muscles are intact. Her sclerae are anicteric. NECK: No adenopathy. No bruits. LUNGS: She has decreased breath sounds and some rales at the bases. CARDIOVASCULAR: Also distant heart tones, but is regular. No appreciable murmurs, clicks, or rubs. ABDOMEN: Obese. It is soft, nontender, and nondistended. Positive for bowel sounds. No rebound. No guarding. EXTREMITIES: She has 1 to 2+ pitting edema. No calf tenderness. No joint effusions. NEUROLOGIC: The patient has some weakness in both lower extremities, as well as some mild muscle atrophy. Upper extremities, muscle strength is 5/5. SKIN AND INTEGUMENT: No skin changes. No significant rashes. LABORATORY DATA: Lab results: White blood cell count 6.0, hemoglobin 12.8, hematocrit is 41, and platelet count is 189. Sodium is 138, potassium 3.8, chloride is 100, CO2 is 31, BUN of 9, creatinine 0.66, glucose is 135, natriuretic peptide 4448. On her chest x-ray, she has cardiomegaly with pleural effusions bilaterally and increased pulmonary vascular markings, it is by my reading. ASSESSMENT: This is a pleasant 84-year-old female, who presents with acute on chronic systolic heart failure exacerbation, [place] Heart Association class III. She is being admitted to the hospital. We will be placing her on IV Lasix. We will reconcile and restart her home medications. Consider echocardiogram since her last one was six months ago. Consult Cardiology for other recommendations. 1. Hypertension. Blood pressure appears to be controlled. Again, we will reconcile and restart her home medications. 2. Hypothyroidism. She appears to be clinically euthyroid. We will check a TSH for screening and continue Synthroid. 3. COVID suspect. The patient is under investigation. COVID-19 screen was done as she is a long term patient and had some respiratory failure, although it is unlikely that she will be positive. Job ID: [id number]
[2019-11-09 05:31] LABS: Anion Gap 13 mmol/L (10-20); BUN (Urea Nitrogen) 9 mg/dL (9.8-20.1); Calc. Creatinine Clearance 93 mL/min (70-130); Calcium 9.2 mg/dL (7.8-10.44); Carbon Dioxide 32 mmol/L (23-31); Chloride 99 mmol/L (98-107); Estimated GFR-MDRD Greater than 90; Glucose 90 mg/dL (83-110); Potassium 3.7 mmol/L (3.5-5.1); Sodium 140 mmol/L (136-145)
[2019-11-09] MEDS: Furosemide 40 MG/4 ML VIAL SLOW IVP SCH ×2 (05:48→14:19)
[2019-11-09 07:32] LABS: Band 1 % (5-11); Eosinophils 1 % (0-10); Lymphocytes 46 % (21-51); MDiff Complete? YES; Macrocytosis SLIGHT = 6-15 cells (100X) (0-5/hpf); Mean Corpuscular HGB CONC 30.4 g/dL (32.0-36.0); Monocytes 2 % (0-10); Neutrophil 48 % (42-75); Platelet Count 155 thou/uL (130-400); Platelet Morphology Comment Appears Adequate; RBC Distribution Width 15.4 % (11.5-14.5); Reactive Lymphocytes 2 % (0-10); Red Blood Cell (RBC) Count 4.18 mill/uL (4.20-5.40); White Blood Cell (WBC) Count 5.7 thou/uL (4.8-10.8)
[2019-11-09] MEDS: Famotidine 20 MG TAB PO SCH ×2 (08:43→20:06)
[2019-11-09] MEDS ORDERED: Carvedilol 6.25 MG TAB PO SCH ×3 (09:45→17:00)
[2019-11-09] MEDS ORDERED: Lisinopril 5 MG TAB PO SCH ×2 (09:45→21:00)
[2019-11-09] MEDS ORDERED: Apixaban 5 MG TAB PO SCH ×2 (09:45→21:00)
--- NOTE | 2019-11-09 10:22 | CON ---
DATE OF CONSULTATION: HISTORY OF PRESENT ILLNESS: The patient is an 84-year-old woman, who presents for evaluation of increasing dyspnea and lower extremity swelling. The patient has history of a severe cardiomyopathy. The patient presented with congestive heart failure and underwent an echocardiogram, which revealed a marked reduction in left ventricular systolic function of 20% to 25%. She has subsequently been on medical therapy. The patient was noted to have increasing lower extremity swelling and brought to the hospital. The patient was feeling mildly dyspneic. She denies any chest discomfort. The patient was recently hospitalized with an infected pacemaker generator. PAST MEDICAL HISTORY: 1. Cardiomyopathy. 2. History of pacemaker placement. 3. Hypertension. 4. Dementia. PAST SURGICAL HISTORY: None. SOCIAL HISTORY: Nonsmoker. ALLERGIES: NO KNOWN DRUG ALLERGIES. REVIEW OF SYSTEMS: Ten-point system otherwise unremarkable. PHYSICAL EXAMINATION: GENERAL: This is an obese woman, in no acute distress. VITAL SIGNS: Blood pressure 149/85. NECK: No jugular venous distention. LUNGS: Few crackles in both bases. HEART: Regular rate and rhythm. Normal S1 and S2. ABDOMEN: Distended. EXTREMITIES: Showed moderate bilateral edema. VASCULAR: Radial pulses are 2+. LABORATORY DATA: Sodium 140, potassium 3.7, chloride 99, bicarbonate 32, BUN 9 , and creatinine was 0.62. White blood cell count 5.7, hemoglobin 13.0, hematocrit was 42.6, and platelets were 155. IMAGING DATA: EKG an electronic ventricular pacemaker. IMPRESSION: 1. Congestive heart failure. 2. Cardiomyopathy. 3. History of pacemaker placement. 4. Hypertension. 5. Obesity. PLAN: This patient presents with increasing lower extremity swelling. The patient has been treated with IV Lasix. From a cardiac standpoint, she has mild congestive heart failure. The patient is on appropriate medication with Coreg and lisinopril. I would recommend increasing the dose of lisinopril. We will follow this patient with you through her hospitalization. Job ID: [id number] MTDD
[2019-11-09 13:20] VITALS: BMI 34.7
[2019-11-09] MEDS ORDERED: Acetaminophen 325 MG TAB PO PRN (15:35)
[2019-11-09] MEDS: Apixaban 5 MG TAB PO SCH (20:06)
[2019-11-09] MEDS: Allopurinol 100 MG TAB PO SCH (20:06)
[2019-11-09] MEDS ORDERED: Lisinopril 2.5 MG TAB PO SCH (21:00)
[2019-11-10] MEDS: Levothyroxine Sodium 75 MCG TAB PO SCH (05:09)
[2019-11-10] MEDS: Furosemide 40 MG/4 ML VIAL SLOW IVP SCH ×2 (05:09→13:02)
[2019-11-10] MEDS: Polyethylene Glycol 3350 17 GM Packet PO SCH (08:34)
[2019-11-10] MEDS: Aspirin Chewable 81 MG TAB PO SCH (08:34)
[2019-11-10] MEDS: Apixaban 5 MG TAB PO SCH ×2 (08:34→20:03)
[2019-11-10] MEDS: Allopurinol 100 MG TAB PO SCH ×2 (08:34→20:03)
[2019-11-10] MEDS: Famotidine 20 MG TAB PO SCH ×2 (08:34→20:03)
--- NOTE | 2019-11-10 08:43 | PDOC.HOSPP ---
- Subjective Encounter Date: 11/09/19 Subjective: Says she is feeling well. Denies complaints. Denies SOB. - Objective Vital Signs & Weight: Vital Signs (12 hours) Temp Pulse Resp BP Pulse Ox 11/10/19 07:25 98.4 F 65 14 139/67 96 11/10/19 06:59 95 11/10/19 03:35 97.9 F 60 18 140/67 95 Weight Admit Weight 198 lb 6.656 oz Weight 198 lb 12.8 oz I&O: 11/09/19 11/10/19 11/11/19 06:59 06:59 06:59 Intake Total 120 1109 Output Total 300 1500 Balance -180 -391 Result Diagrams: 11/09/19 04:51 11/09/19 04:51 Hospitalist ROS - Medication Medications: Active Medications Generic Name Dose Route Start Last Admin Trade Name Freq PRN Reason Stop Dose Admin Allopurinol 100 mg 11/09/19 21:00 11/10/19 08:34 Zyloprim PO 100 mg BID LAKESHA Administration Apixaban 5 mg 11/09/19 21:00 11/10/19 08:34 Eliquis PO 5 mg BID LAKESHA Administration Aspirin 81 mg 11/10/19 09:00 11/10/19 08:34 Aspirin Chewable PO 81 mg DAILY LAKESHA Administration Famotidine 20 mg 11/09/19 09:00 11/10/19 08:34 Pepcid PO 20 mg BID LAKESHA Administration Furosemide 40 mg 11/09/19 06:00 11/10/19 05:09 Lasix SLOW IVP 40 mg 0600,1400 LAKESHA Administration Levothyroxine Sodium 75 mcg 11/10/19 06:00 11/10/19 05:09 Synthroid PO 75 mcg 0600 LAKESHA Administration Polyethylene Glycol 17 gm 11/10/19 09:00 11/10/19 08:34 Miralax PO 17 gm DAILY LAKESHA Administration - Exam General Appearance: NAD, awake alert Heart: RRR, no murmur, no gallops, no rubs, normal peripheral pulses Respiratory: CTAB, no wheezes, no rales, no ronchi, normal chest expansion, no tachypnea, normal percussion Gastrointestinal: soft, non-tender, non-distended, normal bowel sounds, no palpable masses, no hepatomegaly, no splenomegaly, no bruit Extremities: no cyanosis, no clubbing Extremities - other findings: Trace edema Neurological: no focal deficits Psychiatric: normal affect Hosp A/P (1) Acute on chronic systolic (congestive) heart failure Code(s): I50.23 - ACUTE ON CHRONIC SYSTOLIC (CONGESTIVE) HEART FAILURE Status : Acute (2) HTN (hypertension) Code(s): I10 - ESSENTIAL (PRIMARY) HYPERTENSION Status: Chronic Qualifiers: (3) Hypothyroid Code(s): E03.9 - HYPOTHYROIDISM, UNSPECIFIED Status: Chronic - Plan Covid was not tested. No indication to do so at this time. Symptomatically improved with diuresis. Continue with Coreg, Lisinopril and BID IV lasix for now. Appreciate Cardiology recs.
[2019-11-10] MEDS ORDERED: Lisinopril 5 MG TAB PO SCH (10:00)
[2019-11-10] MEDS ORDERED: Carvedilol 6.25 MG TAB PO SCH (10:00)
[2019-11-10 12:00] LABS: #Eosinphils 0.1 thou/uL (0.0-0.7); #Lymphocytes 1.4 thou/uL (1.20-3.40); #Monocytes 0.5 thou/uL (0.11-0.59); #Neutrophils 3.6 thou/uL (1.40-6.50); %Basophils 0.1 % (0.0-1.0); %Eosinophils 1.6 % (0.0-10.0); %Lymphocytes 25.7 % (21.0-51.0); %Monocytes 8.4 % (0.0-10.0); %Neutrophils 64.3 % (42.0-75.0); Hemoglobin 13.9 g/dL (12.0-16.0); Mean Corpuscular HGB CONC 30.2 g/dL (32.0-36.0); Mean Corpuscular Hemoglobin 30.7 pg (27.0-31.0); Mean Platelet Volume 8.5 fL (7.4-10.4); Platelet Count 200 thou/uL (130-400); RBC Distribution Width 15.7 % (11.5-14.5); Red Blood Cell (RBC) Count 4.52 mill/uL (4.20-5.40); White Blood Cell (WBC) Count 5.6 thou/uL (4.8-10.8)
[2019-11-10 12:04] LABS: Anion Gap 13 mmol/L (10-20); BUN (Urea Nitrogen) 8 mg/dL (9.8-20.1); Calc. Creatinine Clearance 87 mL/min (70-130); Carbon Dioxide 35 mmol/L (23-31); Chloride 96 mmol/L (98-107); Estimated GFR-MDRD Greater than 90; Glucose 101 mg/dL (83-110); Sodium 141 mmol/L (136-145)
[2019-11-10 12:14] LABS: Potassium 2.9 mmol/L (3.5-5.1)
[2019-11-10] MEDS: Potassium Chloride 20 MEQ TAB PO SCH ×2 (13:02→17:24)
--- NOTE | 2019-11-10 16:40 | PDOC.HOSPP ---
- Subjective Encounter Date: 11/10/19 Subjective: Patient is doing well today. I awoke her for the exam. She said she was fine but was happier being asleep. - Objective Vital Signs & Weight: Vital Signs (12 hours) Temp Pulse Resp BP Pulse Ox 11/10/19 15:48 98.4 F 59 L 22 H 146/64 H 95 11/10/19 11:01 97.6 F 61 17 135/60 95 11/10/19 08:34 96 11/10/19 07:25 98.4 F 65 14 139/67 96 11/10/19 06:59 95 Weight Admit Weight 198 lb 6.656 oz Weight 198 lb 12.8 oz I&O: 11/09/19 11/10/19 11/11/19 06:59 06:59 06:59 Intake Total 120 1109 Output Total 300 1500 Balance -180 -391 Result Diagrams: 11/10/19 11:23 11/10/19 11:23 Hospitalist ROS - Medication Medications: Active Medications Generic Name Dose Route Start Last Admin Trade Name Opal PRN Reason Stop Dose Admin Allopurinol 100 mg 11/09/19 21:00 11/10/19 08:34 Zyloprim PO 100 mg BID LAKESHA Administration Apixaban 5 mg 11/09/19 21:00 11/10/19 08:34 Eliquis PO 5 mg BID LAKESHA Administration Aspirin 81 mg 11/10/19 09:00 11/10/19 08:34 Aspirin Chewable PO 81 mg DAILY LAKESHA Administration Famotidine 20 mg 11/09/19 09:00 11/10/19 08:34 Pepcid PO 20 mg BID LAKESHA Administration Furosemide 40 mg 11/09/19 06:00 11/10/19 13:02 Lasix SLOW IVP 40 mg 0600,1400 LAKESHA Administration Levothyroxine Sodium 75 mcg 11/10/19 06:00 11/10/19 05:09 Synthroid PO 75 mcg 0600 LAKESHA Administration Polyethylene Glycol 17 gm 11/10/19 09:00 11/10/19 08:34 Miralax PO 17 gm DAILY LAKESHA Administration Potassium Chloride 40 meq 11/10/19 13:00 11/10/19 13:02 K-Dur PO 11/10/19 17:01 40 meq Q4H LAKESHA Administration - Exam General Appearance: NAD, awake alert Heart: RRR, no murmur, no gallops, no rubs, normal peripheral pulses Respiratory: CTAB, no wheezes, no rales, no ronchi, normal chest expansion, no tachypnea, normal percussion Gastrointestinal: soft, non-tender, non-distended, normal bowel sounds, no palpable masses, no hepatomegaly, no splenomegaly, no bruit Extremities: no cyanosis, no clubbing, no edema Skin: normal turgor Musculoskeletal: normal tone, generalized weakness Psychiatric: normal affect Hosp A/P (1) Acute on chronic systolic (congestive) heart failure Code(s): I50.23 - ACUTE ON CHRONIC SYSTOLIC (CONGESTIVE) HEART FAILURE Status : Acute (2) HTN (hypertension) Code(s): I10 - ESSENTIAL (PRIMARY) HYPERTENSION Status: Chronic Qualifiers: (3) Hypothyroid Code(s): E03.9 - HYPOTHYROIDISM, UNSPECIFIED Status: Chronic (4) History of atrial flutter Code(s): Z86.79 - PERSONAL HISTORY OF OTHER DISEASES OF THE CIRCULATORY SYSTEM Status: Acute - Plan Acute on chronic systolic congestive heart failure: Symptomatically improved with diuresis. Continue with Coreg, Lisinopril and BID IV lasix for now. Appreciate Cardiology recs. Anticipate discharge tomorrow. Hypokalemia: Oral repletion today. Recheck in the morning. History of atrial flutter: Continue with Eliquis. Hypothyroidism: Continue with levothyroxine.
[2019-11-10] MEDS: Carvedilol 6.25 MG TAB PO SCH (17:24)
[2019-11-10] MEDS: Lisinopril 5 MG TAB PO SCH (20:03)
[2019-11-11] MEDS: Levothyroxine Sodium 75 MCG TAB PO SCH (05:06)
[2019-11-11] MEDS: Furosemide 40 MG/4 ML VIAL SLOW IVP SCH ×2 (05:06→15:53)
[2019-11-11 05:21] LABS: Anion Gap 13 mmol/L (10-20); BUN (Urea Nitrogen) 10 mg/dL (9.8-20.1); Calc. Creatinine Clearance 82 mL/min (70-130); Calcium 8.6 mg/dL (7.8-10.44); Carbon Dioxide 32 mmol/L (23-31); Chloride 96 mmol/L (98-107); Estimated GFR-MDRD Greater than 90; Glucose 96 mg/dL (83-110); Potassium 4.8 mmol/L (3.5-5.1); Sodium 136 mmol/L (136-145)
[2019-11-11] MEDS: Famotidine 20 MG TAB PO SCH (09:49)
[2019-11-11] MEDS: Carvedilol 6.25 MG TAB PO SCH (09:49)
[2019-11-11] MEDS: Allopurinol 100 MG TAB PO SCH (09:49)
[2019-11-11] MEDS: Apixaban 5 MG TAB PO SCH (09:49)
[2019-11-11] MEDS: Polyethylene Glycol 3350 17 GM Packet PO SCH (09:50)
[2019-11-11] MEDS: Lisinopril 5 MG TAB PO SCH (09:50)
[2019-11-11] MEDS: Aspirin Chewable 81 MG TAB PO SCH (09:50)
[2019-11-11 11:25] VITALS: BP 138/66; TEMP 97.9
--- NOTE | 2019-11-12 20:58 | DIS ---
DATE OF ADMISSION: 11/08/2019 DATE OF DISCHARGE: 11/11/2019 DISCHARGE DIAGNOSES: 1. [id number] systolic congestive heart failure, [place] heart Association class 3. 2. Hypertension. 3. Hypothyroidism. 4. History of atrial fibrillation. HISTORY OF PRESENT ILLNESS: The patient is an 84-year-old female with a history of significant systolic congestive heart failure with a cardiomyopathy resulting in an ejection fraction of 20% to 25% based on echocardiogram from April of 2020. The patient presented to the emergency department reporting some shortness of breath. Her initial workup revealed some evidence of pulmonary edema consistent with a congestive heart failure exacerbation supported by a BNP of 4448. HOSPITAL COURSE: The patient was admitted to the hospital on telemetry. She was started on IV diuretics. She was seen in consultation by Cardiology, who agreed with the plan. She was already on appropriate Coreg and lisinopril medications; therefore once the patient had adequately diuresed and symptomatically improved , she was felt to be stable for discharge. DISCHARGE EXAMINATION: VITAL SIGNS: On the day of discharge, temperature was 97.9, pulse 62, respirations 20, O2 saturation 98% on room air, BP 138/66. GENERAL: She was awake and alert. HEART: Regular rate and rhythm. LUNGS: Clear bilaterally. ABDOMEN: Benign. EXTREMITIES: Had no significant edema. DISPOSITION: The patient is discharged to home. She is to have an activity level that is as tolerated. Her diet is heart healthy. DISCHARGE MEDICATIONS: Include: 1. Lisinopril 5 mg one p.o. b.i.d. 2. Aspirin 81 mg daily. 3. Colace 100 mg b.i.d. 4. Allopurinol 100 mg b.i.d. 5. Zofran q.6 hours p.r.n. 6. Omeprazole 20 mg p.o. daily. 7. Polyethylene glycol 1 packet p.o. daily. 8. Tylenol p.r.n. 9. Levothyroxine 75 mcg daily. 10. Eliquis 5 mg b.i.d. 11. Coreg 6.25 mg b.i.d. 12. DuoNebs p.r.n. 13. Lasix 40 mg daily. 14. Potassium 20 mEq daily. Follow up: The patient is to have follow up with her PCP, Dr. Aleksandr Catherine in [place]. She should also follow up with Dr. Vasquez Collins in 2 to 3 weeks. She will return to the [facility] and can return to the hospital at any time should she have the need to do so. Total time in discharge activities was 35 minutes. Job ID: [id number] MTDJason
== END 2019-11-11 16:20 | DRG 293 ==
LOC: ERS 14:53 → 2NO 22:34 → OBSVTOIN 22:34
PROVIDERS: ADMIT Internal Medicine; ATTEND Internal Medicine
DX: I11.0 Hypertensive heart disease with heart failure (principal); Z20.828 Contact with and (suspected) exposure to other viral communicable diseases; I50.23 Acute on chronic systolic (congestive) heart failure; E03.9 Hypothyroidism, unspecified; I42.9 Cardiomyopathy, unspecified; E66.9 Obesity, unspecified; I48.91 Unspecified atrial fibrillation; F03.90 Unspecified dementia, unspecified severity, without behavioral disturbance, psychotic disturbance, mood disturbance, and anxiety; E87.6 Hypokalemia; Z95.810 Presence of automatic (implantable) cardiac defibrillator; Z79.899 Other long term (current) drug therapy; Z79.890 Hormone replacement therapy; Z79.82 Long term (current) use of aspirin; Z79.01 Long term (current) use of anticoagulants; Z79.51 Long term (current) use of inhaled steroids; Z68.33 Body mass index [BMI] 33.0-33.9, adult
CPT/HCPCS: 36415; 71045; 80048; 80053; 83880; 84443; 84484; 85025; 93005; 96374; J1940

== ENCOUNTER 2021-10-19 16:51 | Inpatient (IN) | payer MEDICARE, MEDICAID ==
[2021-10-19 19:44] VITALS: BMI 36.8
[2021-10-19] MEDS ORDERED: Ondansetron PF 4 MG/2 ML Vial IVP PRN (20:57)
[2021-10-19] MEDS ORDERED: Ondansetron ODT 4 MG TAB PO PRN (20:57)
[2021-10-19 23:55] LABS: Anion Gap 15 mmol/L (10-20); BUN (Urea Nitrogen) 17 mg/dL (9.8-20.1); Calc. Creatinine Clearance 79 mL/min (70-130); Calcium 8.6 mg/dL (7.8-10.44); Carbon Dioxide 34 mmol/L (23-31); Chloride 99 mmol/L (98-107); Glucose 137 mg/dL (83-110); Magnesium 2.1 mg/dL (1.6-2.6); Potassium 3.8 mmol/L (3.5-5.1); Sodium 144 mmol/L (136-145)
[2021-10-20 04:47] LABS: Anion Gap 15 mmol/L (10-20); BUN (Urea Nitrogen) 16 mg/dL (9.8-20.1); Calc. Creatinine Clearance 73 mL/min (70-130); Carbon Dioxide 32 mmol/L (23-31); Chloride 100 mmol/L (98-107); Glucose 131 mg/dL (83-110); Iron 20 ug/dL (50-170); Iron Binding Capacity, Total 240 mcg/dL (265-497); Potassium 4.1 mmol/L (3.5-5.1); Sodium 143 mmol/L (136-145)
[2021-10-20 04:49] LABS: Iron 21 ug/dL (50-170); Iron Binding Capacity, Total 235 mcg/dL (265-497)
[2021-10-20 05:09] LABS: Ferritin 438.97 ng/mL (10-291)
[2021-10-20 05:14] LABS: #Lymphocytes 0.6 thou/uL (1.20-3.40); #Monocytes 0.2 thou/uL (0.11-0.59); #Neutrophils 4.2 thou/uL (1.40-6.50); %Basophils 0.1 % (0.0-1.0); %Eosinophils 0.1 % (0.0-10.0); %Lymphocytes 12.7 % (21.0-51.0); %Monocytes 3.2 % (0.0-10.0); %Neutrophils 83.8 % (42.0-75.0); Hemoglobin 11.8 g/dL (12.0-16.0); MDiff Complete? YES; Macrocytosis SLIGHT = 6-15 cells (100X) (0-5/hpf); Mean Corpuscular HGB CONC 30.9 g/dL (32.0-36.0); Mean Corpuscular Hemoglobin 33.4 pg (27.0-31.0); Mean Platelet Volume 8.6 fL (7.4-10.4); Platelet Count 146 thou/uL (130-400); RBC Distribution Width 14.9 % (11.5-14.5); Red Blood Cell (RBC) Count 3.52 mill/uL (4.20-5.40); White Blood Cell (WBC) Count 5.1 thou/uL (4.8-10.8)
[2021-10-20] MEDS: Furosemide 40 MG/4 ML VIAL SLOW IVP SCH (08:37)
[2021-10-20 15:59] LABS: SARS-CoV-2 PCR by NAA Not Detected (NotDetected)
[2021-10-20] MEDS: Carvedilol 6.25 MG TAB PO SCH (17:21)
[2021-10-20] MEDS: Allopurinol 100 MG TAB PO SCH (20:39)
[2021-10-20] MEDS: Apixaban 5 MG TAB PO SCH (20:39)
[2021-10-21 04:29] LABS: #Lymphocytes 0.6 thou/uL (1.20-3.40); #Monocytes 0.6 thou/uL (0.11-0.59); #Neutrophils 5.5 thou/uL (1.40-6.50); %Basophils 0.2 % (0.0-1.0); %Eosinophils 0.1 % (0.0-10.0); %Monocytes 9.4 % (0.0-10.0); %Neutrophils 81.3 % (42.0-75.0); Hemoglobin 10.9 g/dL (12.0-16.0); Mean Corpuscular HGB CONC 31.7 g/dL (32.0-36.0); Mean Corpuscular Hemoglobin 33.6 pg (27.0-31.0); Mean Platelet Volume 8.1 fL (7.4-10.4); Platelet Count 167 thou/uL (130-400); Red Blood Cell (RBC) Count 3.25 mill/uL (4.20-5.40); White Blood Cell (WBC) Count 6.8 thou/uL (4.8-10.8)
[2021-10-21 04:56] LABS: Anion Gap 12 mmol/L (10-20); BUN (Urea Nitrogen) 23 mg/dL (9.8-20.1); Calc. Creatinine Clearance 69 mL/min (70-130); Carbon Dioxide 34 mmol/L (23-31); Chloride 96 mmol/L (98-107); Glucose 124 mg/dL (83-110); Potassium 3.4 mmol/L (3.5-5.1); Sodium 139 mmol/L (136-145)
[2021-10-21] MEDS: Levothyroxine Sodium 75 MCG TAB PO SCH (05:50)
[2021-10-21] MEDS ORDERED: Potassium Chloride 20 MEQ TAB PO SCH (07:45)
[2021-10-21] MEDS: Allopurinol 100 MG TAB PO SCH ×2 (09:11→20:58)
[2021-10-21] MEDS: Apixaban 5 MG TAB PO SCH ×2 (09:11→20:58)
[2021-10-21] MEDS: Carvedilol 6.25 MG TAB PO SCH ×2 (09:11→17:36)
[2021-10-21] MEDS: Furosemide 40 MG/4 ML VIAL SLOW IVP SCH (09:12)
[2021-10-21] MEDS: Aspirin Chewable 81 MG TAB PO SCH (09:12)
[2021-10-21] MEDS ORDERED: Acetaminophen 325 MG TAB PO PRN (12:54)
[2021-10-22 05:02] LABS: #Eosinphils 0.1 thou/uL (0.0-0.7); #Lymphocytes 1.4 thou/uL (1.20-3.40); #Monocytes 0.9 thou/uL (0.11-0.59); #Neutrophils 5.4 thou/uL (1.40-6.50); %Basophils 0.3 % (0.0-1.0); %Eosinophils 1.3 % (0.0-10.0); %Lymphocytes 18.3 % (21.0-51.0); %Neutrophils 68.1 % (42.0-75.0); Hemoglobin 11.6 g/dL (12.0-16.0); Mean Corpuscular HGB CONC 30.8 g/dL (32.0-36.0); Mean Corpuscular Hemoglobin 32.9 pg (27.0-31.0); Mean Platelet Volume 8.7 fL (7.4-10.4); Platelet Count 162 thou/uL (130-400); RBC Distribution Width 15.2 % (11.5-14.5); Red Blood Cell (RBC) Count 3.53 mill/uL (4.20-5.40); White Blood Cell (WBC) Count 7.9 thou/uL (4.8-10.8)
[2021-10-22 05:09] LABS: Anion Gap 15 mmol/L (10-20); BUN (Urea Nitrogen) 22 mg/dL (9.8-20.1); Calc. Creatinine Clearance 70 mL/min (70-130); Carbon Dioxide 30 mmol/L (23-31); Chloride 94 mmol/L (98-107); Glucose 103 mg/dL (83-110); Potassium 3.9 mmol/L (3.5-5.1); Sodium 135 mmol/L (136-145)
[2021-10-22] MEDS: Levothyroxine Sodium 75 MCG TAB PO SCH (05:42)
[2021-10-22] MEDS: Carvedilol 6.25 MG TAB PO SCH ×3 (08:41→17:39)
[2021-10-22] MEDS: Allopurinol 100 MG TAB PO SCH ×2 (08:42→21:06)
[2021-10-22] MEDS: Aspirin Chewable 81 MG TAB PO SCH (08:42)
[2021-10-22] MEDS: Potassium Chloride 20 MEQ TAB PO SCH (08:42)
[2021-10-22] MEDS: Apixaban 5 MG TAB PO SCH ×2 (08:42→21:06)
[2021-10-22] MEDS: Furosemide 40 MG/4 ML VIAL SLOW IVP SCH (08:43)
[2021-10-22] MEDS: Spironolactone 25 MG TAB PO SCH (08:43)
[2021-10-22] MEDS: Polyethylene Glycol 3350 17 GM Packet PO SCH (08:43)
[2021-10-23 04:50] LABS: #Eosinphils 0.2 thou/uL (0.0-0.7); #Lymphocytes 1.6 thou/uL (1.20-3.40); #Monocytes 0.7 thou/uL (0.11-0.59); #Neutrophils 3.3 thou/uL (1.40-6.50); %Basophils 0.3 % (0.0-1.0); %Eosinophils 3.4 % (0.0-10.0); %Lymphocytes 27.6 % (21.0-51.0); %Neutrophils 56.7 % (42.0-75.0); Hemoglobin 12.2 g/dL (12.0-16.0); Mean Corpuscular HGB CONC 31.2 g/dL (32.0-36.0); Mean Corpuscular Hemoglobin 32.9 pg (27.0-31.0); Mean Platelet Volume 8.4 fL (7.4-10.4); Platelet Count 155 thou/uL (130-400); RBC Distribution Width 15.1 % (11.5-14.5); Red Blood Cell (RBC) Count 3.71 mill/uL (4.20-5.40); White Blood Cell (WBC) Count 5.8 thou/uL (4.8-10.8)
[2021-10-23] MEDS: Levothyroxine Sodium 75 MCG TAB PO SCH (05:15)
[2021-10-23 05:22] LABS: BUN (Urea Nitrogen) 16 mg/dL (9.8-20.1); Calc. Creatinine Clearance 80 mL/min (70-130); Calcium 8.8 mg/dL (7.8-10.44); Glucose 91 mg/dL (83-110)
[2021-10-23 05:30] LABS: Chloride 95 mmol/L (98-107); Potassium 3.1 mmol/L (3.5-5.1); Sodium 140 mmol/L (136-145)
[2021-10-23 05:33] LABS: Anion Gap 12 mmol/L (10-20); Carbon Dioxide 36 mmol/L (23-31)
[2021-10-23] MEDS ORDERED: Potassium Chloride 20 MEQ TAB PO SCH (08:00)
[2021-10-23] MEDS: Aspirin Chewable 81 MG TAB PO SCH (08:58)
[2021-10-23] MEDS: Potassium Chloride 20 MEQ TAB PO SCH (08:58)
[2021-10-23] MEDS: Carvedilol 6.25 MG TAB PO SCH ×2 (08:58→17:45)
[2021-10-23] MEDS: Apixaban 5 MG TAB PO SCH ×2 (08:58→22:22)
[2021-10-23] MEDS: Allopurinol 100 MG TAB PO SCH ×2 (08:58→22:23)
[2021-10-23] MEDS: Polyethylene Glycol 3350 17 GM Packet PO SCH (08:58)
[2021-10-23] MEDS: Sacubitril 49 MG/Valsartan 51 MG TABLET PO SCH ×2 (08:59→22:23)
[2021-10-23] MEDS: Spironolactone 25 MG TAB PO SCH (08:59)
[2021-10-23] MEDS ORDERED: predniSONE 50 MG TAB PO SCH (13:00)
[2021-10-24 05:04] LABS: Anion Gap 13 mmol/L (10-20); BUN (Urea Nitrogen) 16 mg/dL (9.8-20.1); Calc. Creatinine Clearance 77 mL/min (70-130); Calcium 8.9 mg/dL (7.8-10.44); Carbon Dioxide 32 mmol/L (23-31); Chloride 95 mmol/L (98-107); Glucose 149 mg/dL (83-110); Sodium 136 mmol/L (136-145)
[2021-10-24] MEDS: Levothyroxine Sodium 75 MCG TAB PO SCH (06:05)
[2021-10-24] MEDS: Furosemide 40 MG TAB PO SCH (06:05)
[2021-10-24] MEDS: Allopurinol 100 MG TAB PO SCH ×2 (09:35→22:01)
[2021-10-24] MEDS: Potassium Chloride 20 MEQ TAB PO SCH (09:35)
[2021-10-24] MEDS: Spironolactone 25 MG TAB PO SCH (09:35)
[2021-10-24] MEDS: predniSONE 50 MG TAB PO SCH (09:36)
[2021-10-24] MEDS: Apixaban 5 MG TAB PO SCH ×2 (09:36→22:01)
[2021-10-24] MEDS: Aspirin Chewable 81 MG TAB PO SCH (09:36)
[2021-10-24] MEDS: Polyethylene Glycol 3350 17 GM Packet PO SCH (09:37)
[2021-10-24] MEDS: Sacubitril 49 MG/Valsartan 51 MG TABLET PO SCH ×2 (09:41→22:01)
[2021-10-24] MEDS: Carvedilol 6.25 MG TAB PO SCH ×2 (09:41→17:36)
[2021-10-24 14:44] LABS: ALT (SGPT) 8 U/L (8-55); AST (SGOT) 13 U/L (5-34); Albumin 3.1 g/dL (3.4-4.8); Alkaline Phosphatase 88 U/L (40-110); Anion Gap 13 mmol/L (10-20); BUN (Urea Nitrogen) 17 mg/dL (9.8-20.1); Bilirubin, Total 0.7 mg/dL (0.2-1.2); Calc. Creatinine Clearance 70 mL/min (70-130); Carbon Dioxide 32 mmol/L (23-31); Chloride 96 mmol/L (98-107); Glucose 214 mg/dL (83-110); Lipase 7 U/L (8-78); Potassium 4.3 mmol/L (3.5-5.1); Protein, Total 6.1 g/dL (5.8-8.1); Sodium 137 mmol/L (136-145)
[2021-10-24 17:31] LABS: Lactic Acid 1.8 mmol/L (0.5-2.2)
[2021-10-25] MEDS: Levothyroxine Sodium 75 MCG TAB PO SCH (06:07)
[2021-10-25] MEDS: Carvedilol 6.25 MG TAB PO SCH (10:03)
[2021-10-25] MEDS: Furosemide 40 MG TAB PO SCH (10:03)
[2021-10-25] MEDS: Spironolactone 25 MG TAB PO SCH (10:04)
[2021-10-25] MEDS: Sacubitril 49 MG/Valsartan 51 MG TABLET PO SCH (10:04)
[2021-10-25] MEDS: Allopurinol 100 MG TAB PO SCH (10:04)
[2021-10-25] MEDS: Apixaban 5 MG TAB PO SCH (10:04)
[2021-10-25] MEDS: predniSONE 50 MG TAB PO SCH (10:05)
[2021-10-25] MEDS: Polyethylene Glycol 3350 17 GM Packet PO SCH (10:05)
[2021-10-25] MEDS: Potassium Chloride 20 MEQ TAB PO SCH (10:05)
[2021-10-25] MEDS: Aspirin Chewable 81 MG TAB PO SCH (10:05)
[2021-10-25 12:30] VITALS: TEMP 97.5
[2021-10-25 14:46] VITALS: BP 138/65
== END 2021-10-25 14:40 | DRG 291 ==
LOC: 2NO 19:03
PROVIDERS: ADMIT Family Medicine; ATTEND Internal Medicine
DX: I11.0 Hypertensive heart disease with heart failure (principal); I50.23 Acute on chronic systolic (congestive) heart failure; J96.11 Chronic respiratory failure with hypoxia; I48.21 Permanent atrial fibrillation; E87.1 Hypo-osmolality and hyponatremia; Z20.822 Contact with and (suspected) exposure to COVID-19; I42.9 Cardiomyopathy, unspecified; E87.6 Hypokalemia; E88.09 Other disorders of plasma-protein metabolism, not elsewhere classified; M10.9 Gout, unspecified; K21.9 Gastro-esophageal reflux disease without esophagitis; F03.90 Unspecified dementia, unspecified severity, without behavioral disturbance, psychotic disturbance, mood disturbance, and anxiety; D63.8 Anemia in other chronic diseases classified elsewhere; D50.9 Iron deficiency anemia, unspecified; K29.70 Gastritis, unspecified, without bleeding; I08.3 Combined rheumatic disorders of mitral, aortic and tricuspid valves; E03.9 Hypothyroidism, unspecified; E66.9 Obesity, unspecified; Z68.37 Body mass index [BMI] 37.0-37.9, adult; Z79.899 Other long term (current) drug therapy; Z79.82 Long term (current) use of aspirin; Z79.890 Hormone replacement therapy; Z79.01 Long term (current) use of anticoagulants; Z95.0 Presence of cardiac pacemaker
CPT/HCPCS: 36415; 80048; 82607; 82728; 82746; 83540; 83550; 83605; 83690; 83735; 84443; 84484; 85025; 93005; 93010; 93306; 93798; 94640; J1940; J7512; J7620; U0003; U0005